=== PATIENT | female | born 1980 | race Caucasian/White ===

== ENCOUNTER 2018-05-29 17:55 | Inpatient (IN) | payer BC ==
--- OUTSIDE RECORDS SUMMARY | 2018-05-29 18:52 | XMS REPORT | Continuity of Care Document ---
:1980 Author Organization [facility] Address [address] [place] [address] Phone Unavailable Care Team Providers Name Role Phone SHIRLEY GUEVARA MD Primary Care Physician Insurance Providers Guarantor Maura Shetty Address [address] [place] [address] Email [email or web address] Policy Number [id number] Subscriber's Name Gume Shetty Relationship Spouse Group Number [id number] Group Name [employer] Advance Directives Directive Response Recorded Date/Time Advance Directives No 03/21/14 10:10am Advance Directive on File No 04/23/18 4:31pm Directive to Physicians/Living Will No 03/21/14 10:10am Health Care Proxy No 03/21/14 10:10am Name of Surrogate/Decision Maker NA 04/23/18 4:14pm Organ Donor No 03/21/14 10:10am Medical Power of Garment Worker No 03/21/14 10:10am Patient/Family Given Education Material R/T Directives? No 04/23/18 4:31pm Chief Complaint and Reason for Visit Chief Complaint ULCERATIVE COLITIS FLARE Reason for Visit Ulcerative colitis Problems Medical Problem Onset Date Status Bronchitis Unknown Acute Ulcerative colitis Unknown Chronic Surgical Problem Onset Date Status Status post 03/21/2014 Acute Medications Current Home Medications Medication Dose Units Route Directions Days Qty Instructions Start Date Citalopram 1 Tab ORAL Daily 30 Tablet Hydrobromide * 20 Mg Tab Mesalamine 2.4 Gm ORAL Daily for 30 Days 90 Tablet 04/26/18 (Asacol Hd) 800 Unknown Mg Tab Multiple Vitamin 1 Tab ORAL Once Daily * (Multivitamin *) Tab Prednisone 10 Mg ORAL Daily for 10 Days 20 Tablet 04/26/18 (Prednisone 5 Unknown Mg) 5 Mg Alberto Prednisone 1 Tab ORAL Daily for 10 Days 10 Tablet 04/26/18 (Prednisone 20 Unknown Mg*) 20 Mg Tab Tramadol Hcl 1 Tab ORAL Three Times 10 Days 90 Tablet 04/26/18 (Tramadol Hcl 50 Daily As Mg (Ultram) *) Needed for 50 Mg Tab Unknown Past Home Medications Medication Directions Ordered Status Azathioprine (Azathioprine *) 50 Once Daily Discontinued Mg Tab, 50 Mg Oral Budesonide (Uceris) 9 Mg Tab, 9 Once Daily Discontinued Mg Oral Hydrocodone-Acetaminophen 5/325MG Every 4-6H As Needed/ Pain as 03/24/14 Discontinued * ([place] 5/325MG *) 1 Tab Tab, needed for Pain 1-2 Tabs Oral Ibuprofen 800 Mg Tab, 800 Mg Oral Every 6 Hours As Needed 03/24/14 Discontinued Infliximab (Remicade Sdv 100 Mg As Directed Discontinued (10 Mg/Ml) *) 100 Mg Inj, 0 Intravenous Multivit-Min W/Fe-Fa * Once Daily Discontinued ( *) Tab, 1 Tab Oral Social History Smoking Status Start Date Stop Date Former smoker Hospital Discharge Instructions No hospital discharge instruction information available. Plan of Care Discharge Date 04/26/18 3:41pm Disposition PATIENT DISCHARGE HOME OR SELF Instructions/Education Provided Mesalamine delayed-release Tramadol tablets Ulcerative Colitis, Adult Prednisone tablets Forms Provided Portal Welcome Letter Prescriptions See Medication Section Functional Status No functional status information available. Allergies, Adverse Reactions, Alerts No known allergies. Immunizations No immunization information available. Vital Signs Acute Vital Signs Vital Response Date/Time Blood Pressure 111/53 mm Hg 04/26/2018 11:23am Pulse Pulse Rate (adult) 57 beats per minute (60 - 100) 04/26/2018 11:23am Respiratory Rate 18 breaths per minute (10 - 24) 04/26/2018 11:23am Temperature Source Oral 04/26/2018 11:23am Height 5 ft 5 in 04/23/2018 10:05pm Weight 250.06 lb 04/26/2018 4:37am Body Mass Index 41.6 kg/m^2 04/26/2018 4:37am Results Laboratory Results Test Name Result Units Flags Reference Collection Result Comments Date/Time Date/Time White Blood 10.6 K/ul 4.0-11.5 04/25/2018 04/25/2018 Count 4:32am 5:22am Red Blood Count 4.87 M/ul 3.80-5.20 04/25/2018 04/25/2018 4:32am 5:22am Hemoglobin 14.9 g/dl 10.5-15.7 04/25/2018 04/25/2018 4:32am 5:22am Hematocrit 43.3 % 34.0-50.0 04/25/2018 04/25/2018 4:32am 5:22am Mean Corpuscular 88.9 fl 78-98 04/25/2018 04/25/2018 Volume 4:32am 5:22am Mean Corpuscular 30.5 pg 26.2-33.4 04/25/2018 04/25/2018 Hemoglobin 4:32am 5:22am Mean Corpuscular 34.3 g/dl 31.5-36.2 04/25/2018 04/25/2018 Hemoglobin 4:32am 5:22am Concent Red Cell 12.2 % 11.5-15.5 04/25/2018 04/25/2018 Distribution 4:32am 5:22am Width Platelet Count 241 K/ul 137-338 04/25/2018 04/25/2018 4:32am 5:22am Mean Platelet 6.6 fl L 8.4-11.8 04/25/2018 04/25/2018 Volume 4:32am 5:22am Neutrophils (%) 89.4 % H 44.4-80.1 04/25/2018 04/25/2018 (Auto) 4:32am 5:22am Lymphocytes (%) 6.6 % L 10.0-50.0 04/25/2018 04/25/2018 (Auto) 4:32am 5:22am Monocytes (%) 3.7 % 3.6-12.04 04/25/2018 04/25/2018 (Auto) 4:32am 5:22am Eosinophils (%) 0.0 % 0.0-5.41 04/25/2018 04/25/2018 (Auto) 4:32am 5:22am Basophils (%) 0.3 % 0.0-0.79 04/25/2018 04/25/2018 (Auto) 4:32am 5:22am Erythrocyte 12 mm/hr 0.00-20 04/23/2018 04/23/2018 Sedimentation 5:33pm 5:58pm Rate Prothrombin Time 10.6 SECONDS 10.3-12.3 04/24/2018 04/24/2018 4:30am 5:06am THERAPEUTIC LEVEL: 1.5 to 1.9 times normal range of PT Prothromb Time 0.96 04/24/2018 04/24/2018 International 4:30am 5:06am Recommended therapeutic range for patients receiving Ratio warfarin (coumadin) therapy: INR is 2.0 to 3.0 Recommended range for patients with mechanical prosthetic heart valves: INR is 2.5 to 3.5 Activated 26.0 SECONDS 22.5-37.0 04/24/2018 04/24/2018 Partial 4:30am 5:06am Thromboplast Time Urine Color YELLOW 04/23/2018 04/23/2018 8:23pm 8:52pm Urine Appearance CLEAR CLEAR 04/23/2018 04/23/2018 8:23pm 8:52pm Urine Glucose NEGATIVE NEGATIVE 04/23/2018 04/23/2018 8:23pm 8:52pm Urine Bilirubin NEGATIVE NEGATIVE 04/23/2018 04/23/2018 8:23pm 8:52pm Urine Ketones NEGATIVE NEGATIVE 04/23/2018 04/23/2018 8:23pm 8:52pm Urine Specific 1.017 1.003-1.03 04/23/2018 04/23/2018 [place] 0 8:23pm 8:52pm Urine Blood NEGATIVE NEGATIVE 04/23/2018 04/23/2018 8:23pm 8:52pm Urine pH 6.000 5-9 04/23/2018 04/23/2018 8:23pm 8:52pm Urine Protein NEGATIVE NEGATIVE 04/23/2018 04/23/2018 8:23pm 8:52pm Urine NORMAL mg/dL 0.2-1.0 04/23/2018 04/23/2018 Urobilinogen 8:23pm 8:52pm Urine Nitrate NEGATIVE NEGATIVE 04/23/2018 04/23/2018 8:23pm 8:52pm Urine Leukocyte 1+ H NEGATIVE 04/23/2018 04/23/2018 Esterase 8:23pm 8:52pm Urine RBC <1 /hpf 0-5 04/23/2018 04/23/2018 8:23pm 8:51pm Urine WBC 1-5 /hpf 0-5 04/23/2018 04/23/2018 8:23pm 8:51pm Urine Epithelial 1-5 /hpf 0-5 04/23/2018 04/23/2018 Cells 8:23pm 8:51pm Urine Bacteria TRACE /hpf None 04/23/2018 04/23/2018 Detect 8:23pm 8:51pm Urine Casts 2-5 /lpf None 04/23/2018 04/23/2018 Detect 8:23pm 8:51pm Urine Culture YES 04/23/2018 04/23/2018 Reflexed 8:23pm 8:51pm POC Capillary 76 mg/dL 70 - 110 04/23/2018 04/24/2018 Blood Glucose 8:26pm 12:54am (Chem) Lactic Acid 1.05 mmoL/L 0.5-2.2 04/23/2018 04/23/2018 Level 5:33pm 6:22pm Procalcitonin 0.0 ng/mL 0.0-0.8 04/23/2018 04/23/2018 The change of PCT concentration over time provides 5:33pm 6:23pm prognostic information about the risk of mortality within 28 days for patients diagnosed with severe sepsis or septic shock coming from the emergency department, ICU, other medical wards, or directly from outside the hospital. Data supports the use of PCT determinations from the day severe sepsis or septic shock is first diagnosed (Day 0) or the day thereafter (Day 1) and the fourth day after diagnosis (Day 4) for the classification of patients into higher and lower risk for mortality within 28 days according to the workflow below: PCT Day 0(or Day 1) - PCT Day 4 delta PCT= X 100% PCT Day 0 (or Day 1) A decrease of PCT levels below or equal to 80% defines a positive delta PCT test result representing a higher risk for 28-day all-cause mortality of patients diagnosed with severe sepsis or septic shock. A decreased of PCT levels of more than 80% defines a negative delta PCT result representing a lower risk for 28-day all-cause mortality of patients diagnosed with severe sepsis or septic shock. To determine delta PCT results from the absolute PCT concentrations of a patient obtained on the day severe sepsis or septic shock was first diagnosed (or 24 hours later) and on Day 4, go to [email or web address]. Random Glucose 144 mg/dL H 74-106 04/25/2018 04/25/2018 4:32am 6:07am Blood Urea 6 mg/dL 6-20 04/25/2018 04/25/2018 Nitrogen 4:32am 6:07am Serum Osmolality 281 280-300 04/25/2018 04/25/2018 4:32am 6:07am Creatinine 0.6 mg/dL 0.50-0.90 04/25/2018 04/25/2018 4:32am 6:07am Glomerular > 60.00 04/25/2018 04/25/2018 GFR RESULTS ARE REPORTED IN mL/min/1.73m2. Filtration Rate 4:32am 6:07am Calc Normal GFR: >60mL/min Moderately decreased GFR: 30-59 mL/min Severely decreased GFR: 15-29 mL/min Kidney Failure (or Dialysis): <15 mL/min The calculated eGFR is not valid for patients younger than 18 years or older than 75 years. BUN/Creatinine 10.0 L 12-04/25/2018 04/25/2018 Ratio 4:32am 6:07am Sodium Level 141 mmol/L 135-145 04/25/2018 04/25/2018 4:32am 6:07am Potassium Level 4.2 mmol/L 3.5-5.2 04/25/2018 04/25/2018 4:32am 6:07am Chloride Level 105 mmol/L 98-108 04/25/2018 04/25/2018 4:32am 6:07am Carbon Dioxide 26 mmol/L 21-32 04/25/2018 04/25/2018 Level 4:32am 6:07am Anion Gap 14.2 mEq/L 12-20 04/25/2018 04/25/2018 4:32am 6:07am Calcium Level 9.2 mg/dL 8.6-10.0 04/25/2018 04/25/2018 4:32am 6:07am Total Protein 6.8 g/dL 6.6-8.7 04/23/2018 04/23/2018 5:33pm 6:22pm Albumin 4.0 g/dL 3.5-5.2 04/23/2018 04/23/2018 5:33pm 6:22pm Globulin 2.8 gm/dL 04/23/2018 04/23/2018 5:33pm 6:22pm Albumin/Globulin 1.4 >1.0 04/23/2018 04/23/2018 Ratio 5:33pm 6:22pm Total Bilirubin 0.4 mg/dL 0.0-1.2 04/23/2018 04/23/2018 5:33pm 6:22pm Aspartate Amino 10 U/L L 15-32 04/23/2018 04/23/2018 Transf 5:33pm 6:22pm (AST/SGOT) Alanine 11 U/L 0-33 04/23/2018 04/23/2018 Aminotransferase 5:33pm 6:22pm (ALT/SGPT) Lipase 19 U/L 13-60 04/23/2018 04/23/2018 5:33pm 6:22pm C-Reactive 2.6 mg/L 0.0-5.0 04/23/2018 04/23/2018 Protein High 5:33pm 6:42pm Sensitivity Total Alkaline 53 U/L 35-105 04/23/2018 04/23/2018 Phosphatase 5:33pm 6:22pm Microbiology Results Procedure Source Organism/Result Collection Result Result Status Date/Time Date/Time Blood Culture Blood SPECIMEN HAS BEEN 04/23/2018 04/23/2018 Preliminary RECEIVED IN LAB AND 5:40pm 5:47pm IS IN PROGRESS. Procedures Procedure Status Date Provider(s) Computed tomography of abdomen and pelvis with Completed 04/23/18 TAMMIE DEVLIN MD contrast Encounters Encounter Location Arrival/Admit Date Discharge/Depart Date Attending Provider Discharged Mobile 04/23/18 4:14pm 04/26/18 3:41pm QUITA Inpatient (obs) [facility] Recent Diagnosis Ulcerative colitis
--- OUTSIDE RECORDS SUMMARY | 2018-05-29 18:52 | XMS REPORT | Clinical Summary ---
:1980 Author Organization [facility] Address [address] [place] [id number] Care Team Providers Name Role Phone Hiram Gómez MD Primary Care Provider Allergies No Known Allergies Medications Medication Sig Dispensed Refills Start Date End Date Status inFLIXimab (REMICADE) Infuse into a 0 Active 100 mg injection venous catheter. Once per 7 weeks azaTHIOprine (IMURAN) Take 50 mg by 0 Active 50 mg tablet mouth daily. topiramate (TOPAMAX) 25 1 tab PO QAM for 120 tablet 6 10/18/2016 Active MG tablet 1 week, then 1 tab PO BID for 1 week, then 2 tabs PO QAM and 1 tab PO QPM for 1 week, then 2 tabs PO BID Active Problems Problem Noted Date Empty sella syndrome 10/18/2016 Intractable migraine with aura without status migrainosus 10/18/2016 Chronic daily headache 10/18/2016 Paresthesia 10/18/2016 Family History Medical History Relation Name Comments Migraines Father Heart attack Maternal Grandfather Uterine cancer Maternal Grandmother Heart attack Maternal Uncle Migraines Mother Relation Name Status Comments Father Maternal Grandfather Maternal Grandmother Maternal Uncle Mother Social History Tobacco Use Types Packs/Day Years Used Date Former Smoker Quit: 2001 Alcohol Use Drinks/Week oz/Week Comments Yes rare Sex Assigned at Date Recorded Not on file Job Start Date Occupation Industry Not on file Not on file Not on file Travel History Travel Start Travel End No recent travel history available. Last Filed Vital Signs Not on file Plan of Treatment Health Maintenance Due Date Last Done Comments CERVICAL CANCER SCREENING 2000 INFLUENZA VACCINE 02/14/2018 Results Not on fileafter 05/28/2017 Insurance Payer Benefit Plan / Group Subscriber ID Type Phone Address BCBS BCBS CHOICE PPO/FEDERAL EMPL PPO xxxxxxxxxxxx PPO Advance Directives Patient has advance care planning documents on file. For more information, please contact:Trey Butler[address] [place] [address]
--- NOTE | 2018-05-29 20:37 | P.HP ---
Certification for Inpatient Patient admitted to: Inpatient With expected LOS: >2 Midnights Practitioner: I am a practitioner with admitting privileges, knowledge of patient current condition, hospital course, and medical plan of care. Services: Services provided to patient in accordance with Admission requirements found in Title 42 Section 412.3 of the Code of Federal Regulations Patient History Date of Service: 05/29/18 Reason for admission: Ulcerative colitis flare-up History of Present Illness: Ms Wright 87-year-old woman with history of ulcerative colitis who was admitted in April of this year due to a flare up. Time she was complaining of abdominal pain, nausea, vomiting and rectal bleeding. She was initially treated with IV steroids, then it was switched to mesalamine. The patient noticed that when she was on steroids, her bleeding was minimal but when she finished it, she start bleeding more again. She was sent by her PCP for direct admission due to worsening symptoms. At arrival the patient was in no distress. Home medications list reviewed: Yes - Past Medical/Surgical History -: Ulcerative colitis Past Surgical History: Reviewed- Non-Contributory - Family History Family History: Reviewed- Non-Contributory - Social History Smoking Status: Former smoker Alcohol use: No CD- Drugs: No Place of Residence: Home Review of Systems 10-point ROS is otherwise unremarkable Physical Examination - Physical Exam General: Alert, In no apparent distress HEENT: Atraumatic, PERRLA, Mucous membr. moist/pink, EOMI, Sclerae nonicteric Neck: Supple, 2+ carotid pulse no bruit, No LAD, Without JVD or thyroid abnormality Respiratory: Clear to auscultation bilaterally, Normal air movement Cardiovascular: Regular rate/rhythm, Normal S1 S2 Gastrointestinal: Normal bowel sounds, Tenderness (Tender to palpation in lower abdomen) Musculoskeletal: No tenderness Integumentary: No rashes Neurological: Normal speech, Normal strength at 5/5 x4 extr, Normal tone, Normal affect Lymphatics: No axilla or inguinal lymphadenopathy Assessment and Plan - Problems (Diagnosis) (1) Ulcerative colitis Current Visit: Yes Status: Acute Qualifiers: Ulcerative colitis location: unspecified ulcerative colitis location Digestive disease complication type: with rectal bleeding Qualified Code(s): K51.911 - Ulcerative colitis, unspecified with rectal bleeding (2) Hematochezia Current Visit: Yes Status: Acute (3) Nausea & vomiting Current Visit: Yes Status: Acute Qualifiers: Vomiting type: unspecified Vomiting Intractability: non-intractable Qualified Code(s): R11.2 - Nausea with vomiting, unspecified - Plan The patient will be admitted to the hospital due to ulcerative colitis flare- up. Will order laboratory work, CT abdomen and pelvis, start empiric antibiotic treatment with Cipro and Flagyl. Also order IV steroids and pain medication. Keep her NPO. Consult GI specialist for evaluation recommendation. - Advance Directives Does patient have a Living Will: No Does patient have a Durable POA for Healthcare: No - Code Status/Comfort Care Code Status Assessed: Yes Code Status: Full Code
[2018-05-29 20:52] LABS: Absolute Lymphocytes (CBC) 1.3 K/uL (0.7-4.9); Absolute Monocytes 0.7 K/uL (0.1-1.3); Absolute Neutrophil 5.9 K/uL (1.8-8.0); Basophils % 0.6 % (0-1.3); Eosinophils % 5.2 % (0-4.4); Hematocrit 38.2 % (36.0-45.0); Lymphocytes % 15.1 % (15.3-44.8); MCH 30.4 pg (27.0-35.0); MCV 88.3 fL (80-100); MPV 7.1 fL (7.6-11.3); Monocytes % 8.9 % (3.3-12.3); RBC Red Blood Cell Count 4.33 M/uL (3.86-4.86)
[2018-05-29 21:11] LABS: ALT/SGPT 23 U/L (12-78); AST/SGOT 15 U/L (15-37); Albumin 3.4 g/dL (3.4-5.0); Alkaline Phosphatase 61 U/L (45-117); BUN Blood Urea Nitrogen 12 mg/dL (7-18); Bicarbonate 25 mmol/L (21-32); Bilirubin Total 0.5 mg/dL (0.2-1.0); Glucose Level 86 mg/dL (74-106); Potassium 3.6 mmol/L (3.5-5.1); Protein, Total 6.7 g/dL (6.4-8.2); Sodium Level 139 mmol/L (136-145)
[2018-05-29] MEDS: ONDANSETRON 4 MG/2 ML VIAL IV PRN (22:14)
[2018-05-29] MEDS: MORPHINE 2 MG/ML SYR IV PRN (22:15)
[2018-05-29] MEDS: CIPROFLOXACIN 400mg IV 400 MG/200 ML BAG IV SCH (22:15)
[2018-05-29] MEDS: NA CHLORIDE 0.9% 1,000 ML IV SCH (22:15)
[2018-05-30] MEDS: METHYLPREDNISOLONE 40 MG INJ IV SCH ×3 (02:04→16:41)
[2018-05-30] MEDS: METRONIDAZOLE 500mg IVPB 500 MG/100 ML BAG IV SCH ×3 (02:10→16:40)
[2018-05-30] MEDS: MORPHINE 2 MG/ML SYR IV PRN ×4 (02:24→21:46)
[2018-05-30] MEDS ORDERED: ACETAMINOPHEN 500 MG TAB PO ONE (04:20)
[2018-05-30 06:09] LABS: BUN Blood Urea Nitrogen 9 mg/dL (7-18); Bicarbonate 25 mmol/L (21-32); Glucose Level 105 mg/dL (74-106); Sodium Level 140 mmol/L (136-145)
[2018-05-30 06:11] LABS: Absolute Lymphocytes (CBC) 0.7 K/uL (0.7-4.9); Absolute Monocytes 0.2 K/uL (0.1-1.3); Absolute Neutrophil 4.4 K/uL (1.8-8.0); Basophils % 0.8 % (0-1.3); Eosinophils % 3.7 % (0-4.4); Hematocrit 38.4 % (36.0-45.0); Lymphocytes % 12.6 % (15.3-44.8); MCH 30.3 pg (27.0-35.0); MCV 86.4 fL (80-100); MPV 7.6 fL (7.6-11.3); Monocytes % 3.8 % (3.3-12.3); RBC Red Blood Cell Count 4.45 M/uL (3.86-4.86)
[2018-05-30] MEDS: CIPROFLOXACIN 400mg IV 400 MG/200 ML BAG IV SCH ×2 (08:53→21:46)
[2018-05-30] MEDS: NA CHLORIDE 0.9% 1,000 ML IV SCH ×3 (08:53→22:45)
--- NOTE | 2018-05-30 09:05 | RAD REPORT ---
EXAM DESCRIPTION: CTAbdomen Pelvis W Contrast - 05/30/2018 8:31 am CLINICAL HISTORY: Abdominal pain. ulcerative colitis flare up COMPARISON: No comparisons TECHNIQUE: Biphasic CT imaging of the abdomen and pelvis was performed with 100 ml non-ionic IV cont rast. All CT scans are performed using dose optimization technique as appropriate and may include automated exposure control or mA/KV adjustment according to patient size. FINDINGS: The lung bases are clear. Mild diffuse fatty liver is present. Small low-density lesion is present in the left lobe inferiorly, incompletely assessed but likely a cyst. No aggressive liver lesion or biliary dilatation seen. The spleen, pancreas, adrenal glands and kidneys are within normal limits. No bowel obstruction, free air, free fluid or abscess. Rectosigmoid wall thickening is present up to 10 mm with mild surrounding induration the fat likely indicating colitis. No pneumatosis coli. The ap pendix is not identified as a discrete structure, however, no secondary findings of appendicitis are identified. No evidence of significant lymphadenopathy. No suspicious bony findings. IMPRESSION: Mild to moderate rectosigmoid colitis is present. No free air, free fluid or abscess is seen.
[2018-05-30] MEDS: CITALOPRAM 10 MG TABLET PO SCH (09:42)
[2018-05-30] MEDS: ONDANSETRON 4 MG/2 ML VIAL IV PRN ×2 (09:43→21:51)
--- NOTE | 2018-05-30 17:30 | PN ---
Date of Progress Note: 05/30/2018 Subjective: The patient seen and examined, chart reviewed and case discussed with RN and Dr. Cid. The patient states she is still having some bright red blood per rectum overnight. Review of Systems: Negative except as above. Medications: List reviewed. Physical Examination: Vital Signs: Temperature 98.6, heart rate 78, blood pressure 114/74, respirations 16, O2 98% on room air. General: Awake, alert, oriented x3, in some mild distress. Morbidly obese female, ill-appearing. CV: S1 and S2. No murmurs. Regular rate and rhythm. Peripheral pulses present. Respiratory: Moving air well bilaterally. No wheezing. Gastrointestinal: Abdomen is soft. No tenderness to palpation. No rebound or guarding. No rigidity. Bowel sounds positive. Extremities: No clubbing, cyanosis, or edema. Neurologic: Nonfocal. Laboratory Data: Sodium 140, potassium 4, chloride 107, CO2 25, BUN 9, creatinine 0.6, glucose 105, calcium 8.7, magnesium 2. WBC 5.6, H and H 13.5 and 38.4, platelets 233, neutrophils 79.1%. CT scan of the abdomen and pelvis shows mild to moderate rectosigmoid colitis present, no free air, free fluid or abscess seen. Assessment And Plan: A 37-year-old female with: 1. Ulcerative colitis in the rectosigmoid colon with rectal bleeding. We will continue with IV fluids and IV antibiotics and IV steroids. Appreciate Dr. Cid's input. The patient is still having significant amount of bleeding. We will monitor hemoglobin. Hemoglobin levels currently stable. 2. Acute gastrointestinal bleed secondary to above. Monitor H and H, transfuse as needed. 3. Intractable nausea and vomiting, resolved. We will advance diet to clear liquids. 4. Morbid obesity Plan: Continue current treatment, GI and DVT prophylaxis with PPI and SCDs. No chemical anticoagulation due to GI bleed. The patient will likely need to go back on her Remicade. Discharge in the next 24-48 hours depending on clinical stability. Currently still having GI bleed. /MODL Voice ID: [id number] Report ID: [id number] [facility]
[2018-05-31] MEDS: METRONIDAZOLE 500mg IVPB 500 MG/100 ML BAG IV SCH ×3 (00:57→16:31)
[2018-05-31] MEDS: METHYLPREDNISOLONE 40 MG INJ IV SCH ×3 (00:57→16:31)
[2018-05-31 06:43] LABS: Absolute Lymphocytes (CBC) 0.6 K/uL (0.7-4.9); Absolute Monocytes 0.3 K/uL (0.1-1.3); Absolute Neutrophil 4.9 K/uL (1.8-8.0); Basophils % 0.2 % (0-1.3); Hematocrit 36.5 % (36.0-45.0); Lymphocytes % 10.2 % (15.3-44.8); MCH 30.5 pg (27.0-35.0); MCV 87.7 fL (80-100); Monocytes % 5.9 % (3.3-12.3); RBC Red Blood Cell Count 4.16 M/uL (3.86-4.86)
[2018-05-31 06:49] LABS: ALT/SGPT 19 U/L (12-78); AST/SGOT 11 U/L (15-37); Alkaline Phosphatase 57 U/L (45-117); BUN Blood Urea Nitrogen 6 mg/dL (7-18); Bicarbonate 25 mmol/L (21-32); Bilirubin Total 0.3 mg/dL (0.2-1.0); Glucose Level 133 mg/dL (74-106); Potassium 3.6 mmol/L (3.5-5.1); Protein, Total 6.3 g/dL (6.4-8.2); Sodium Level 143 mmol/L (136-145)
[2018-05-31] MEDS ORDERED: KCL 20 MEQ/100 mL IVPB 20 MEQ/100 ML BAG IV SCH (08:00)
[2018-05-31] MEDS ORDERED: POTASSIUM 25 MEQ EFFERV TAB PO ONE (08:01)
[2018-05-31] MEDS: CITALOPRAM 10 MG TABLET PO SCH (08:16)
[2018-05-31] MEDS: CIPROFLOXACIN 400mg IV 400 MG/200 ML BAG IV SCH ×2 (08:16→20:23)
[2018-05-31] MEDS ORDERED: FLUCONAZOLE 100 MG TAB PO ONE (11:16)
[2018-05-31] MEDS: NA CHLORIDE 0.9% 1,000 ML IV SCH (12:27)
[2018-05-31] MEDS: ONDANSETRON 4 MG/2 ML VIAL IV PRN ×2 (13:20→21:23)
[2018-05-31] MEDS: MORPHINE 2 MG/ML SYR IV PRN ×2 (13:30→21:23)
--- NOTE | 2018-05-31 16:29 | PN ---
Date of Progress Note: 05/31/2018 Subjective: The patient seen and examined, chart reviewed, and case discussed with RN and Dr. Cid. The patient continues to have multiple bowel movements with bright red blood per rectum. The patient is on isolation to rule out C diff. The patient is still having some abdominal pain, but really tolerating her liquid diet and she continues to have loose stools. Review of Systems: Negative except as above. Medications: List reviewed. Physical Examination: Vital Signs: Temperature 97.4, blood pressure 127/80, respirations 17, O2 96% on room air. General: Awake, alert, oriented x3, some moderate distress due to pain, ill- appearing female, morbidly obese. CV: S1 and S2. Regular rate and rhythm. No murmurs. Respiratory: Moving air well bilaterally. No wheezing. Gastrointestinal: Abdomen is soft. Tenderness to palpation. No distention. Hypoactive bowel sounds. No rebound or guarding. Extremities: No clubbing, cyanosis, edema. Neuro: Nonfocal. Laboratory Data: Sodium 143, potassium 3.6, chloride 110, CO2 25, BUN 6, creatinine 0.6, glucose 133, calcium 8.4. WBC 5.8, H and H 12.7 and 36.5, platelets 260, neutrophils 83%. C diff assay is pending. Assessment And Plan: A 37-year-old female with: 1. Acute ulcerative colitis exacerbation, rectosigmoid colon. Continue with IV antibiotics and IV steroids. The patient is still not tolerating liquid diet , we will continue IV fluids. I spoke with Dr. Cid, if the patient's hepatitis panel in [place] is negative, we will try to see if Remicade is available in the hospital. The patient continues to have significant amount of bleeding. Hemoglobin trending downward. We will continue to monitor. 2. Acute gastrointestinal bleed secondary to above. We will monitor H and H, transfuse as needed. 3. Intractable nausea and vomiting, resolved. 4. Diarrhea. We will rule out Clostridium difficile. 5. Morbid obesity, BMI 40.4. 6. Gastrointestinal and deep venous thrombosis prophylaxis, PPI and SCDs. No chemical anticoagulation due to gastrointestinal bleed. Plan: Follow up on hepatitis panel. Possible discharge Remicade if available. Continue current treatment. The patient did complain of some yeast infection , we will give 1 dose of Diflucan. SA/MODL Voice ID: [id number] Report ID: [id number] [facility]TD[facility]
[2018-06-01] MEDS: NA CHLORIDE 0.9% 1,000 ML IV SCH ×2 (01:00→09:38)
[2018-06-01] MEDS: METHYLPREDNISOLONE 40 MG INJ IV SCH ×2 (01:00→09:38)
[2018-06-01] MEDS: METRONIDAZOLE 500mg IVPB 500 MG/100 ML BAG IV SCH ×2 (01:00→09:37)
[2018-06-01 05:11] LABS: Absolute Lymphocytes (CBC) 0.7 K/uL (0.7-4.9); Absolute Monocytes 0.4 K/uL (0.1-1.3); Absolute Neutrophil 5.1 K/uL (1.8-8.0); Basophils % 0.2 % (0-1.3); Hematocrit 35.7 % (36.0-45.0); MCH 30.5 pg (27.0-35.0); MCV 88.4 fL (80-100); MPV 6.9 fL (7.6-11.3); Monocytes % 6.7 % (3.3-12.3); RBC Red Blood Cell Count 4.05 M/uL (3.86-4.86)
[2018-06-01 05:19] LABS: Bicarbonate 25 mmol/L (21-32); Glucose Level 128 mg/dL (74-106); Potassium 3.8 mmol/L (3.5-5.1); Sodium Level 143 mmol/L (136-145)
[2018-06-01 05:20] LABS: BUN Blood Urea Nitrogen 8 mg/dL (7-18)
[2018-06-01] MEDS ORDERED: POTASSIUM 25 MEQ EFFERV TAB PO ONE (06:00)
[2018-06-01] MEDS: CITALOPRAM 10 MG TABLET PO SCH (09:37)
[2018-06-01] MEDS: CIPROFLOXACIN 400mg IV 400 MG/200 ML BAG IV SCH (09:38)
--- NOTE | 2018-06-02 15:36 | DS ---
Date of Discharge: 06/01/2018 Registered Travel Nurse: Dr. Cid, GI. Admitting Diagnoses: 1.Acute exacerbation of ulcerative colitis with rectal bleeding. 2.Hematochezia. 3.Intractable nausea and vomiting. Discharge Diagnoses: 1.Acute rectosigmoid ulcerative colitis exacerbation. 2.Acute gastrointestinal bleed secondary to above. 3.Intractable nausea and vomiting, resolved. 4.Diarrhea, Clostridium difficile rule out. 5.Morbid obesity, BMI 40. Hospital Course: The patient is a 37-year-old female, who was a direct admit from [place] by her [facility] physician for ulcerative colitis flare up. The patient sees Dr. Cid as outpatient fo r ulcer colitis, who has recently been on mesalamine. She had tried Remicade in the past, however wa s off the biologics at this point. The patient has been having multiple episodes of bleeding requiri ng recurrent hospitalizations. The patient was again treated with IV antibiotics, IV fluids, and IV saline. She did have some improvement in her symptoms. Her pain resolved. She was able to tolerate her diet. Her nausea and vomiting improved as well. However, she continued to have some blood in h er stool. Her blood pressure however remained stable. She was not tachycardic. Her hemoglobin leve ls remained stable, did not require any transfusions. She did have some loose stools and C diff was checked which was negative. The patient already has had workup including PPD and hepatitis panel, wh ich were negative and therefore is set up for Remicade treatment as an outpatient. The patient was t hen cleared for discharge from GI standpoint and discharged home in a stable condition. Activity: As tolerated. Medications: As per medication reconciliation list. Diet: [place] diet. Followup: Follow up with primary care physician in 2-3 days. Follow up with [facility], Dr. Cid in 1 [place]. Return to ER for worsening condition. Physical Examination: General: Awake, alert, oriented x3. No acute distress. Morbidly obese female. CV: S1 and S2. No murmurs. Respiratory: Moving air well bilaterally. Abdomen: Soft, nontender, nondistended. Positive bowel sounds. Extremities: No clubbing, cyanosis, or edema. Neurologic: Nonfocal. Total time spent discharging the patient was 36 minutes. SA/MODL Voice ID: [id number] Report ID: [id number]
== END 2018-06-01 12:56 | disposition home or self-care (01) | DRG 386 ==
LOC: 2ND 17:55
PROVIDERS: ADMIT Family Medicine; ATTEND Family Medicine
DX: K51.311 Ulcerative (chronic) rectosigmoiditis with rectal bleeding (principal); Z68.41 Body mass index [BMI] 40.0-44.9, adult; R11.2 Nausea with vomiting, unspecified; E66.01 Morbid (severe) obesity due to excess calories; R19.7 Diarrhea, unspecified; Z87.891 Personal history of nicotine dependence
CPT/HCPCS: 36415; 74177; 80048; 80053; 83735; 85025; 85652; 86140; 87493; J0744; J2270; J2405; J2920; J7030; Q9967

== ENCOUNTER 2018-07-23 14:10 | Inpatient (IN) | payer BC ==
--- OUTSIDE RECORDS SUMMARY | 2018-07-23 14:12 | XMS REPORT | Clinical Summary ---
:1980 Author Organization [facility] Address [address] [place] [address] Care Team Providers Name Role Phone Hiram [...] INFLUENZA VACCINE 02/14/2018 Results Not on fileafter 07/22/2017 Insurance Payer Benefit Plan / Group Subscriber ID Type Phone Address BCBS BCBS CHOICE PPO/FEDERAL EMPL PPO xxxxxxxxxxxx PPO Advance Directives Patient has advance care planning documents on file. For more information, please contact:Trey Butler[address] [place] [address]
--- OUTSIDE RECORDS SUMMARY | 2018-07-23 14:13 | XMS REPORT ---
:1980 [facility] Address [address] [place] [address] Care Team Providers Name Role Phone Unavailable Unavailable Unavailable Payers Payer Name Policy Type Policy Number Effective Date Expiration Date Problems This patient has no known problems. Allergies, Adverse Reactions, Alerts Allergy Allergy Status Severity Reaction(s) Onset Inactive Treating Comments Name Type Date Date Clinician No Known DA Active U 2018-05 Allergies -25 00:00:0 0 Medications This patient has no known medications.
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
--- OUTSIDE RECORDS SUMMARY | 2018-07-23 14:13 | XMS REPORT | Encounter Summary ---
:1980 Author Care Team Providers Name Role Phone Hiram Gómez MD Primary Care Provider Unavailable Reason for Visit sore throat; congestion; cough / wheezing Instructions 1. Acute upper respiratory infection upper respiratory infection (cold): care instructions rapid flu (A+B) 2. Left sided ulcerative colitis Discussion Note admit to medical rocha at [facility] today. Plan of Care Reminders Provider Appointments None recorded. Lab Rapid Flu 07/06/2018 In-House Results (A+B) Referral None recorded. Procedures None recorded. Surgeries None recorded. Imaging None recorded. Medications Name Start Date citalopram 20 mg tablet TAKE 1 TABLET BY MOUTH EVERY DAY FOR DEPRESSION fluconazole 150 mg tablet Take 1 tablet as needed by oral route as directed for 1 day. mesalamine 1.2 gram tablet,delayed release mesalamine rectal susp enema with cleansing wipes 4 gram/60 mL kit ondansetron HCl 8 mg tablet Take 1 tablet every 8 hours by oral route for 10 days. pantoprazole 40 mg tablet,delayed release Medications Administered None recorded. Vitals Height Weight BMI Blood Pressure 65 in 246 lbs 3 oz 41 kg/m2 129/91 mm[Hg] Lab Results Date Name Specimen Result Interpretation Description Value Range Status Address 07/06/2018 Hemoglobin + Normal Hemoglobin 11.9 g/dL 10.5-15.7 Final [place] Hematocrit, g/dL [facility] (Lab): 104 [facility] Normal Hematocrit 35.7 % 34.0-50.0 Final [place] % [facility] (Lab): [address] [place] [address] 07/06/2018 Rapid Flu Flu negative In-House (A+B) Results: For Internal Use Only 06/18/2018 Cbc High White Blood 13.9 K/uL 4.0-11.5 Final [place] Count K/uL [facility] (Lab): 104 [facility] Normal Red Blood 4.58 M/uL 3.80-5.20 Final [place] Count M/uL [facility] (Lab): [address] [place] [address] Normal Hemoglobin 14.1 g/dL 10.5-15.7 Final [place] g/dL [facility] (Lab): [address] [place] [address] Normal Hematocrit 41.4 % 34.0-50.0 Final [place] % [facility] (Lab): [address] [place] [address] Normal Mean 90.4 fL 78-98 fL Final [place] Corpuscular [facility] (Lab): [address] [place] [address] Normal Mean 30.7 pg 26.2-33.4 Final [place] Corpuscular pg [facility] Hemoglobin [facility] (Lab): [address] [place] [address] Normal Mean 34.0 g/dL 31.5-36.2 Final [place] Corpuscular g/dL [facility] HGB [facility] (Lab): [address] [place] [address] Normal Red Cell 13.5 % 11.5-15.5 Final [place] Distribution % [facility] Width [facility] (Lab): [address] [place] [address] High Platelet 346 K/uL 137-338 Final [place] Count K/uL [facility] (Lab): [address] [place] [address] Low Mean Platelet 4.7 fL 8.4-11.8 Final [place] Volume fL [facility] (Lab): [address] [place] [address] 06/18/2018 BMP, Serum or High Glucose 117 mg/dL 74-106 Final [place] Plasma mg/dL [facility] (Lab): [address] [place] [address] Normal Blood Urea 16 mg/dL 6-20 mg/dL Final [place] Nitrogen [facility] (Lab): [address] [place] [address] Low Osmolality 278 280-300 Final [place] Calculated, [facility] Serum [facility] (Lab): [address] [place] [address] Normal Creatinine 0.8 mg/dL 0.50-0.90 Final [place] mg/dL [facility] (Lab): [address] [place] [address] Normal Glomerular >60.00 Final [place] Filtration [facility] Rate [facility] (Lab): [address] [place] [address] Normal BUN/creatinin 20.0 12-20 Final [place] e Ratio [facility] (Lab): [address] [place] [address] Normal Sodium Level 138 135-145 Final [place] mmol/L mmol/L [facility] (Lab): [address] [place] [address] Normal Potassium 4.4 3.5-5.2 Final [place] Level mmol/L mmol/L [facility] (Lab): [address] [place] [address] Normal Chloride 100 98-108 Final [place] Level mmol/L mmol/L [facility] (Lab): [address] [place] [address] Normal Co2 27 mmol/L 21-32 Final [place] mmol/L [facility] (Lab): [address] [place] [address] Normal Anion Gap 15.4 12-20 Final [place] mEq/L mEq/L [facility] (Lab): [address] [place] [address] Normal Calcium Level 9.5 mg/dL 8.6-10.0 Final [place] mg/dL [facility] (Lab): [address] [place] [address] 06/09/2018 CBC W/ Auto Normal White Blood 10.7 K/uL 4.0-11.5 Final [place] Diff Count K/uL [facility] (Lab): [address] [place] [address] Normal Red Blood 4.63 M/uL 3.80-5.20 Final [place] Count M/uL [facility] (Lab): [address] [place] [address] Normal Hemoglobin 14.0 g/dL 10.5-15.7 Final [place] g/dL [facility] (Lab): [address] [place] [address] Normal Hematocrit 41.4 % 34.0-50.0 Final [place] % [facility] (Lab): [address] [place] [address] Normal Mean 89.4 fL 78-98 fL Final [place] Corpuscular [facility] Volume [facility] (Lab): [address] [place] [address] Normal Mean 30.3 pg 26.2-33.4 Final [place] Corpuscular pg [facility] Hemoglobin [facility] (Lab): [address] [place] [address] Normal Mean 33.9 g/dL 31.5-36.2 Final [place] Corpuscular g/dL [facility] HGB Conc [facility] (Lab): [address] [place] [address] Normal Red Cell 13.2 % 11.5-15.5 Final [place] Distribution % [facility] Width [facility] (Lab): [address] [place] [address] Normal Platelet 198 K/uL 137-338 Final [place] Count K/uL [facility] (Lab): [address] [place] [address] Low Mean Platelet 6.1 fL 8.4-11.8 Final [place] Volume fL [facility] (Lab): [address] [place] [address] Normal Neutrophils % 68.8 % 44.4-80.1 Corrected [place] % [facility] (Lab): [address] [place] [address] Normal Lymphocyte% 16.3 % 10.0-50.0 Final [place] % [facility] (Lab): [address] [place] [address] Normal Sharp % 10.4 % 3.6-12.04 Final [place] % [facility] (Lab): [address] [place] [address] Normal Eos % 3.8 % 0.0-5.41 % Final [facility] (Lab): [address] [place] [address] Normal Basophil % 0.7 % 0.0-0.79 % Final [facility] (Lab): [address] [place] [address] 06/09/2018 Differential Normal Neutrophils Incomplet [place] Panel, Blood [facility] (Lab): [address] [place] [address] Normal Band Incomplet [facility] (Lab): [address] [place] [address] Normal Lymphocyte Incomplet [facility] (Lab): [address] [place] [address] Normal Atypical Incomplet [place] Lymph [facility] (Lab): [address] [place] [address] Normal Monocyte Incomplet [facility] (Lab): [address] [place] [address] Normal Eosinophil Incomplet [facility] (Lab): [address] [place] [address] Normal Basophil Incomplet [facility] (Lab): [address] [place] [address] Normal Platelet Incomplet [place] Estimate e [facility] (Lab): [address] [place] [address] Normal Platelet Incomplet [place] Morphology e [facility] (Lab): [address] [place] [address] Normal Hypochromasia Incomplet [facility] (Lab): [address] [place] [address] Normal Anisocytosis Incomplet [facility] (Lab): [address] [place] [address] Normal Sickle Cells Incomplet [facility] (Lab): [address] [place] [address] 06/09/2018 CMP, Serum or Normal Glucose 90 mg/dL 74-106 Final [place] Plasma mg/dL [facility] (Lab): [address] [place] [address] Normal Blood Urea 13 mg/dL 6-20 mg/dL Final [place] Nitrogen [facility] (Lab): [address] [place] [address] Low Osmolality 275 280-300 Final [place] Calculated, [facility] Serum [facility] (Lab): [address] [place] [address] Normal Creatinine 0.8 mg/dL 0.50-0.90 Final [place] mg/dL [facility] (Lab): [address] [place] [address] Normal Glomerular >60.00 Final [place] Filtration [facility] (Lab): [address] [place] [address] Normal BUN/creatinin 16.3 12-20 Final [place] e Ratio [facility] (Lab): [address] [place] [address] Normal Sodium Level 138 135-145 Final [place] mmol/L mmol/L [facility] (Lab): [address] [place] [address] Normal Potassium 3.8 3.5-5.2 Final [place] Level mmol/L mmol/L [facility] (Lab): [address] [place] [address] Normal Chloride 98 mmol/L 98-108 Final [place] Level mmol/L [facility] (Lab): [address] [place] [address] Normal Co2 29 mmol/L 21-32 Final [place] mmol/L [facility] (Lab): [address] [place] [address] Normal Anion Gap 14.8 12-20 Final [place] mEq/L mEq/L [facility] (Lab): [address] [place] [address] Normal Calcium Level 9.0 mg/dL 8.6-10.0 Final [place] mg/dL [facility] (Lab): [address] [place] [address] Low Total Protein 6.5 g/dL 6.6-8.7 Final [place] g/dL [facility] (Lab): [address] [place] [address] Normal Albumin 3.8 g/dL 3.5-5.2 Final [place] g/dL [facility] (Lab): [address] [place] [address] Normal Globulin 2.7 gm/dL Final [place] [facility] (Lab): [address] [place] [address] Normal A/g Ratio 1.4 >1.0 Final [place] [facility] (Lab): [address] [place] [address] Normal Bilirubin,tot 0.5 mg/dL 0.0-1.2 Final [place] al mg/dL [facility] (Lab): [address] [place] [address] Low AST/SGOT 10 U/L 15-32 U/L Final [facility] (Lab): [address] [place] [address] Normal ALT/SGPT 10 U/L 0-33 U/L Final [facility] (Lab): [address] [place] [address] Normal Alkaline 56 U/L 35-105 U/L Final [place] Phosphatase, [facility] (Lab): [address] [place] [address] 06/09/2018 Type + Rh Bld 4+ Final [place] Screen, Blood [facility] (Lab): [address] [place] [address] ABO + Rh Pnl A Final [place] Bld positive [facility] (Lab): [address] [place] [address] Allergies Code Code System Name Reaction Severity Status Onset NKDA Problems Name Status Onset Date Source Lesion of Tongue Active 09/15/2016 Malaise and Fatigue Active 09/15/2016 Candidiasis of Vagina Active 05/22/2017 Bacterial Vaginosis Active 05/26/2017 Candidal Vulvovaginitis Active 05/26/2017 Vaginal Pain Active 05/26/2017 Pain in Left Arm Active 02/13/2018 Ulcerative Colitis Active 04/23/2018 Overweight Active Encounter Serous Otitis Media Active Encounter Otitis Media Active Encounter Otalgia Active Encounter Acute Sinusitis Active Encounter Allergic Rhinitis Active Encounter Cyst of Oral Soft Tissue Active Encounter Contact Dermatitis Due to Plants, Except Active Encounter Food Partial Loss of Hair Active Encounter Joint Pain Active Encounter Knee Pain Active Encounter Inflammation of Sacroiliac Joint Active Encounter Lumbago with Sciatica Active Encounter Pain in Left Lower Limb Active Encounter Cough Active Encounter Muscle Strain Active Encounter Procedures Date Name Performed by 03/21/2014 Caesarean Section Information not available 01/18/2004 Caesarean Section Information not available Vaccine List Vaccine Type influenza, recombinant, quadrIvalent,injectable, preservative free 06/18/20180.5 mL Social History Smoking Status Former Smoker Past Encounters 07/06/2018 Acute Upper Respiratory Infection; Left Sided Ulcerative Colitis Earle Roth MD: [address] [place] [address], [address], [place] [address], Ph. 06/26/2018 Left Sided Ulcerative Colitis Earle Roth MD: [address], [address], [place] [address], Ph. 06/18/2018 Ulcerative Colitis; Influenza Vaccination Earle Roth MD: [address], [address], [place] [address], Ph. History of Present Illness Upper Respiratory Symptoms Reported By: Patient Upper Respiratory Symptoms: Location: chest, throat. Quality: colored phlegm, congested, hacking cough, hurts to swallow. Severity: severe. Duration: ; 4 days. Onset/Timing: cannot identify, sudden. Context: no foreign travel, non-smoker, sick contact. Modifying Factors: OTC medication. Associated Symptoms: no vomiting, no diarrhea, no rash, no nausea, yellow-green, thick sputum, yellow sputum, wheezing, difficulty breathing at night, sore throat Review of Systems General Adult ROS Reported By: Patient Cardiovascular: Cardiovascular: no chest pain, no arm pain on exertion, no shortness of breath when walking, no shortness of breath when lying down, no palpitations, no known heart murmur Respiratory: Respiratory: no cough, no wheezing, no shortness of breath, no coughing up blood Gastrointestinal: Gastrointestinal: ; having frequent diarrhea. Bloody mucousy stools intermittently. This has been going on for 4 weeks. Has gotten better with Remicade infusions Integumentary: Skin: no abnormal mole, no jaundice, no rashes Physical Exam General Adult Exam - Female Reported By: Patient Constitutional: General Appearance: healthy-appearing, well-developed. Level of Distress: NAD, acutely ill. Ambulation: limited ambulation Psychiatric: Insight: good judgement. Mental Status: active and alert, normal mood, normal affect. Orientation: to time, to place, to person. Memory: recent memory normal Head: Head: normocephalic Eyes: Pupils: PERRLA. EOM: EOMI. Sclerae: non-icteric ENMT: Ears: TM erythematous. Nose: sinus tenderness, nasal discharge, post nasal drip. Lips, Teeth, and Gums: no mouth or lip ulcers, no bleeding gums, normal dentition. Oropharynx: moist mucous membranes Neck: Neck: supple, FROM. Lymph Nodes: cervical LAD. Thyroid: no enlargement, non-tender, no nodules Lungs: Respiratory effort: no dyspnea. Auscultation: breath sounds normal, good air movement Cardiovascular: Heart Auscultation: RRR, normal S1, normal S2. Neck vessels: no carotid bruits. Pulses including femoral / pedal: normal throughout Abdomen: Bowel Sounds: normal. Inspection and Palpation: soft, non-distended, no tenderness, no guarding Musculoskeletal:: Motor Strength and Tone: normal motor strength, normal tone. Joints, Bones, and Muscles: normal movement of all extremities. Extremities: no cyanosis, no edema, no varicosities Neurologic: Gait and Station: normal gait, normal station. Cranial Nerves: grossly intact. Reflexes: DTRs 2+ bilaterally throughout Skin: Inspection and palpation: no rash, no lesions
--- OUTSIDE RECORDS SUMMARY | 2018-07-23 14:13 | XMS REPORT | Continuity of Care Document ---
:1980 Author Organization [facility] Address [address] [place] [address] Phone Unavailable Care Team Providers Name Role Phone TAMMIE DEVLIN MD Primary Care Physician Insurance Providers Guarantor Maura Shetty Address [address] [place] [address] Email [email or web address] Payer [facility] Policy Number [id number] Subscriber's Name Maura Shetty Relationship Self / Same As Patient Group Number [id number] Group Name [employer] Advance Directives Directive Response Recorded Date/Time Advance Directives No 03/21/14 10:10am Advance Directive on File No 06/09/18 6:04pm Directive to Physicians/Living Will No 03/21/14 10:10am Health Care Proxy No 03/21/14 10:10am Organ Donor No 03/21/14 10:10am Medical Power of Adjunct Philosophy Faculty No 03/21/14 10:10am Patient/Family Given Education Material R/T Y - 06/09/18....PS 06/09/18 7: 36pm Directives? Chief Complaint and Reason for Visit Chief Complaint Abdominal/GI/Nausea/Vomiting Reason for Visit GI bleeding Ulcerative colitis Hypotension Problems Medical Problem Onset Date Status Bronchitis [...] As Needed/ Pain as 03/24/14 Discontinued * (Old Station 5/325MG *) 1 Tab Tab, needed for [...] information available. Plan of Care Discharge Date 06/09/18 11:45pm Forms Provided Portal Welcome Letter Prescriptions See Medication Section Referrals TAMMIE DEVLIN MD Address: [address] [place] [address] [address] [place] [address] Additional Instructions/Education TRANSFERRED TO [facility] Functional Status No functional status information available. Allergies, Adverse Reactions, Alerts No known allergies. Immunizations No immunization information available. Vital Signs Acute Vital Signs Vital Response Date/Time Blood Pressure 114/60 mm Hg 06/10/2018 12:46am Pulse Pulse Rate (adult) 84 beats per minute (60 - 100) 06/10/2018 12:46am Respiratory Rate 20 breaths per minute (10 - 24) 06/10/2018 12:46am Temperature Source Oral 06/10/2018 12:46am Height 5 ft 5 in 06/09/2018 6:04pm Weight 235 lb 06/09/2018 6:04pm Body Mass Index 39.1 kg/m^2 06/09/2018 6:04pm Results Laboratory Results Test Name Result Units [...] 8:52pm Urine Specific 1.017 1.003-1.03 04/23/2018 04/23/2018 [place] 0 8:23pm 8:52pm Urine Blood NEGATIVE NEGATIVE [...] later) and on Day 4, go to [email or web address]. Lipase 19 U/L 13-60 04/23/2018 04/23/2018 5:33pm 6:22pm Erythrocyte 11 mm/hr 0.00-20 05/17/2018 05/17/2018 Sedimentation 11:05am 12:41pm Rate C-Reactive 1.4 mg/L 0.0-5.0 05/17/2018 05/17/2018 Protein High 11:57am 12:49pm Sensitivity Hepatitis B Core Negative Negative 05/23/2018 05/24/2018 Total Antibody 9:23am 7:11am Hepatitis B Core Negative Negative 05/23/2018 05/24/2018 [facility] IgM Antibody 9:23am 7:11am [address] [place], [place] [id number] Charge Master Analyst: Gustavo Cerna MD, Phone: [phone] Hepatitis B Reactive . 05/23/2018 05/24/2018 Non [...] or older than 75 years. BUN/Creatinine 16.3 12-06/09/2018 06/09/2018 Ratio 7:31pm 8:01pm Sodium Level 138 mmol/L 135-145 06/09/2018 06/09/2018 7:31pm 8:01pm Potassium Level 3.8 mmol/L 3.5-5.2 06/09/2018 06/09/2018 7:31pm 8:01pm Chloride Level 98 mmol/L 98-108 06/09/2018 06/09/2018 7:31pm 8:01pm Carbon Dioxide 29 mmol/L 21-32 06/09/2018 06/09/2018 Level 7:31pm 8:01pm Anion Gap 14.8 mEq/L -06/09/2018 06/09/2018 7:31pm 8:01pm Calcium Level 9.0 mg/dL [...] INF Completed 04/23/18 TX/PRO/DX INJ SAME DRUG SMELTER CHARGER Completed 04/23/18 COMPLETE CBC W/AUTO DIFF WBC Completed 04/23/18 ROUTINE VENIPUNCTURE Completed 04/23/18 METABOLIC PANEL TOTAL CA Completed 04/23/18 HYDRATE IV INFUSION ADD-ON Completed 04/23/18 TX/PROPH/DG ADDL SEQ IV INF Completed 04/23/18 TX/PRO/DX INJ SAME DRUG SMELTER CHARGER Completed 04/23/18 HYDRATE IV INFUSION ADD-ON Completed 04/23/18 TX/PRO/DX INJ SAME DRUG SMELTER CHARGER Completed 04/23/18 Completed 04/23/18 MORPHINE SULFATE INJECTION [...] IA Completed 05/23/18 ROUTINE VENIPUNCTURE Completed 05/23/18 Computed tomography of abdomen and pelvis with Completed 04/23/18 TAMMIE DEVLIN MD contrast Computed tomography of abdomen and pelvis with Completed 06/09/18 EMELIA CHI MD contrast Encounters Encounter Location Arrival/Admit Date Discharge/Depart Date Attending Provider Departed [place] 06/09/18 5:49pm 06/09/18 11:45pm EMELIA CHI Emergency Room [facility] Registered [place] 05/23/18 8:49am ASHLEY [facility] SALOMÓN Kaur MD Medical Ctr Registered [place] 05/17/18 11:53am QUITA [facility] T[facility]E [facility] Discharged [place] 04/23/18 4:14pm 04/26/18 3:41pm QUITA Inpatient (obs) [facility] T[facility] Recent Diagnosis
--- OUTSIDE RECORDS SUMMARY | 2018-07-23 14:14 | XMS REPORT | Continuity of Care Document ---
:[address] [facility] Address [address] [place] [address] Phone Unavailable Care Team Providers Name Role Phone TAMMIE DEVLIN MD Primary Care Physician Insurance Providers Guarantor Yaneli Shetty Address [address] [place] [address] Email [email or web address] Payer [facility] Policy Number [id number] Subscriber's Name Yaneli Shetty Relationship Self / Same As Patient Group Number [id number] Group Name [employer] Advance Directives Directive Response Recorded Date/Time Advance Directives No 03/21/14 10:10am Advance Directive on File No 07/10/18 7:39pm Resuscitation Status Full Code 07/11/18 5:45pm Directive to Physicians/Living Will No 03/21/14 10:10am Health Care Proxy No 03/21/14 10:10am Organ Donor No 03/21/14 10:10am Medical Power of Nursing Service Administrator No 03/21/14 10:10am Patient/Family Given Education Material R/T Y - 07/10/18..MA 07/10/18 7: 39pm Directives? Chief Complaint and Reason for Visit Chief Complaint RIGHT LOWER LOBE PNEUMONIA Reason for Visit Bronchitis Ulcerative colitis Bronchitis Immunosuppressed status Community acquired bacterial pneumonia Immunosuppressed status Ulcerative colitis Acute sinusitis Problems Medical Problem Onset Date Status Acute sinusitis Unknown Acute Bronchitis Unknown Acute Community acquired bacterial pneumonia Unknown Acute Immunosuppressed status Unknown Chronic Ulcerative colitis Unknown Chronic Ulcerative colitis Unknown Chronic Surgical Problem Onset Date Status Status post 03/21/2014 Acute Past Problems Medical Problem Onset Date Status GI bleeding Unknown Acute General symptom Unknown Acute Hypotension Unknown Acute Pneumonia Unknown Acute Medications Current Home Medications Medication Dose Units Route Directions Days Qty Instructions Start Date Citalopram 1 Tab ORAL Daily 30 Tablet Hydrobromide * 20 Mg Tab Fluticasone 2 [place] NASAL Daily for 30 Days 1 Inh Propionate 50 Sinus Allergy 8 Mcg/Act Spr Levofloxacin 1 Tab ORAL Daily for 7 Tablet (Levofloxacin Infection 8 750 Mg) 750 Mg Tab Multiple 1 Tab ORAL Once Daily Vitamin * (Multivitamin *) Tab Phenyleph-Prome 10 Ml ORAL Three Times 5 Days 180 thazine W/ Cod Daily As Milliliter 8 (Promethazine Needed as Vc/Codeine) Syp needed for Cold Symptoms Tramadol Hcl 1 Tab ORAL Three Times 10 Days 90 Tablet (Tramadol Hcl Daily As 8 50 Mg (Ultram) Needed for *) 50 Mg Tab Unknown Past Home Medications Medication Directions Ordered Status Azathioprine (Azathioprine *) 50 Once Daily Discontinued Mg Tab, 50 Mg Oral Budesonide (Uceris) 9 Mg Tab, 9 Once Daily Discontinued Mg Oral Cefdinir (Omnicef) 300 Mg Cap, 1 Twice A Day for Infection 07/08/18 Discontinued Cap Oral Guaifenesin/Codeine (Cheratussin Every 6 Hours As Needed as 07/08/18 Discontinued Ac) 5 Ml Syrp, 5 Ml Oral needed for Cough And Congestion Hydrocodone-Acetaminophen 5/325MG Every 4-6H As Needed/ Pain as 03/24/14 Discontinued * ([place] 5/325MG *) 1 Tab Tab, needed for Pain 1-2 Tabs Oral Ibuprofen 800 Mg Tab, 800 Mg Oral Every 6 Hours As Needed 03/24/14 Discontinued Infliximab (Remicade Sdv 100 Mg As Directed Discontinued (10 Mg/Ml) *) 100 Mg Inj, 0 Intravenous Mesalamine (Asacol Hd) 800 Mg Daily for Unknown 04/26/18 Discontinued Tab, 2.4 Gm Oral Prednisone (Prednisone 20 Mg*) 20 Daily for Uc 07/08/18 Discontinued Mg Tab, 40 Mg Oral Prednisone (Prednisone 20 Mg*) 20 Daily for Unknown 04/26/18 Discontinued Mg Tab, 1 Tab Oral Prednisone (Prednisone 5 Mg) 5 Mg Daily for Unknown 04/26/18 Discontinued Alberto, 10 Mg Oral Multivit-Min W/Fe-Fa * Once Daily Discontinued ( *) Tab, 1 Tab Oral Social History Social History Problem Response Recorded Date/Time Onset Date Status Hx Physical Abuse No 07/10/2018 7:45pm Not Applicable Not Applicable Smoking Status Start Date Stop Date Never smoker Hospital Discharge Instructions No hospital discharge instruction information available. Plan of Care Discharge Date 07/13/18 5:00pm Disposition PATIENT DISCHARGE HOME OR SELF Instructions/Education Provided Sinusitis, Adult, [id number] Acetaminophen; Chlorpheniramine; Phenylephrine; Phenyltoloxamine tablet Ulcerative Colitis, Adult Levofloxacin tablets Fluticasone; Salmeterol inhalation aerosol Community-Acquired Pneumonia, Adult, Fulr-[id number] Forms Provided Portal Welcome Letter Prescriptions See Medication Section Functional Status No functional status information available. Allergies, Adverse Reactions, Alerts No known allergies. Immunizations No immunization information available. Vital Signs Acute Vital Signs Vital Response Date/Time Blood Pressure 144/87 mm Hg 07/13/2018 11:27am Pulse Pulse Rate (adult) 52 beats per minute (60 - 100) 07/13/2018 11:27am Respiratory Rate 18 breaths per minute (10 - 24) 07/13/2018 11:27am Temperature Source Oral 07/13/2018 11:27am Height 5 ft 5 in 07/10/2018 3:30pm Weight 238.38 lb 07/11/2018 4:47am Body Mass Index 39.7 kg/m^2 07/11/2018 4:47am Results Laboratory Results Test Name Result Units Flags Reference Collection Result Comments Date/Time Date/Time Erythrocyte 16 mm/hr 0.00-20 07/07/2018 07/07/2018 Sedimentation Rate 3:12am 3:24am White Blood Count 12.6 K/ul H 4.0-11.5 07/12/2018 07/12/2018 9:07am 9:21am Red Blood Count 4.14 M/ul 3.80-5.20 07/12/2018 07/12/2018 9:07am 9:21am Hemoglobin 12.2 g/dl 10.5-15.7 07/12/2018 07/12/2018 9:07am 9:21am Hematocrit 37.4 % 34.0-50.0 07/12/2018 07/12/2018 9:07am 9:21am Mean Corpuscular 90.3 fl 78-98 07/12/2018 07/12/2018 Volume 9:07am 9:21am Mean Corpuscular 29.4 pg 26.2-33.4 07/12/2018 07/12/2018 Hemoglobin 9:07am 9:21am Mean Corpuscular 32.6 g/dl 31.5-36.2 07/12/2018 07/12/2018 Hemoglobin Concent 9:07am 9:21am Red Cell 13.4 % 11.5-15.5 07/12/2018 07/12/2018 Distribution Width 9:07am 9:21am Platelet Count 244 K/ul 137-338 07/12/2018 07/12/2018 9:07am 9:21am Mean Platelet 5.8 fl L 8.4-11.8 07/12/2018 07/12/2018 Volume 9:07am 9:21am Neutrophils (%) 85.9 % H 44.4-80.1 07/12/2018 07/12/2018 (Auto) 9:07am 9:21am Lymphocytes (%) 11.8 % 10.0-50.0 07/12/2018 07/12/2018 (Auto) 9:07am 9:21am Monocytes (%) 2.1 % L 3.6-12.04 07/12/2018 07/12/2018 (Auto) 9:07am 9:21am Eosinophils (%) 0.0 % 0.0-5.41 07/12/2018 07/12/2018 (Auto) 9:07am 9:21am Basophils (%) 0.2 % 0.0-0.79 07/12/2018 07/12/2018 (Auto) 9:07am 9:21am Urine Color LIGHT 07/10/2018 07/10/2018 YELLOW 5:18pm 5:42pm Urine Appearance CLEAR CLEAR 07/10/2018 07/10/2018 5:18pm 5:42pm Urine Glucose NEGATIVE NEGATIVE 07/10/2018 07/10/2018 5:18pm 5:42pm Urine Bilirubin NEGATIVE NEGATIVE 07/10/2018 07/10/2018 5:18pm 5:42pm Urine Ketones NEGATIVE NEGATIVE 07/10/2018 07/10/2018 5:18pm 5:42pm Urine Specific 1.010 1.003-1.03 07/10/2018 07/10/2018 [place] 0 5:18pm 5:42pm Urine Blood NEGATIVE NEGATIVE 07/10/2018 07/10/2018 5:18pm 5:42pm Urine pH 6.000 5-9 07/10/2018 07/10/2018 5:18pm 5:42pm Urine Protein NEGATIVE NEGATIVE 07/10/2018 07/10/2018 5:18pm 5:42pm Urine Urobilinogen NORMAL mg/dL 0.2-1.0 07/10/2018 07/10/2018 5:18pm 5:42pm Urine Nitrate NEGATIVE NEGATIVE 07/10/2018 07/10/2018 5:18pm 5:42pm Urine Leukocyte NEGATIVE NEGATIVE 07/10/2018 07/10/2018 Esterase 5:18pm 5:42pm Urine RBC <1 /hpf 0-5 07/10/2018 07/10/2018 5:18pm 5:45pm Urine WBC <1 /hpf 0-5 07/10/2018 07/10/2018 5:18pm 5:45pm Urine Epithelial 1-5 /hpf 0-5 07/10/2018 07/10/2018 Cells 5:18pm 5:45pm Urine Bacteria None /hpf None 07/10/2018 07/10/2018 Detected Detect 5:18pm 5:45pm Urine Casts 2-5 /lpf None 07/10/2018 07/10/2018 Detect 5:18pm 5:45pm Urine Culture NO 07/10/2018 07/10/2018 Reflexed 5:18pm 5:45pm Random Glucose 186 mg/dL H 74-106 07/12/2018 07/12/2018 9:07am 9:29am Blood Urea 14 mg/dL 6-20 07/12/2018 07/12/2018 Nitrogen 9:07am 9:29am Serum Osmolality 283 280-300 07/12/2018 07/12/2018 9:07am 9:29am Creatinine 0.6 mg/dL 0.50-0.90 07/12/2018 07/12/2018 9:07am 9:29am Glomerular > 60.00 07/12/2018 07/12/2018 GFR RESULTS ARE REPORTED IN mL/min/1.73m2. Filtration Rate 9:07am 9:29am Calc Normal GFR: >60mL/min Moderately decreased GFR: 30-59 mL/min Severely decreased GFR: 15-29 mL/min Kidney Failure (or Dialysis): <15 mL/min The calculated eGFR is not valid for patients younger than 18 years or older than 75 years. BUN/Creatinine 23.3 H 07-0507/12/2018 07/12/2018 Ratio 9:07am 9:29am Sodium Level 139 mmol/L 135-145 07/12/2018 07/12/2018 9:07am 9:29am Potassium Level 3.4 mmol/L L 3.5-5.2 07/12/2018 07/12/2018 9:07am 9:29am Chloride Level 103 mmol/L 98-108 07/12/2018 07/12/2018 9:07am 9:29am Carbon Dioxide 24 mmol/L 21-32 07/12/2018 07/12/2018 Level 9:07am 9:29am Anion Gap 15.4 mEq/L 07-0507/12/2018 07/12/2018 9:07am 9:29am Calcium Level 8.9 mg/dL 8.6-10.0 07/12/2018 07/12/2018 9:07am 9:29am Total Protein 6.5 g/dL L 6.6-8.7 07/10/2018 07/10/2018 4:11pm 4:55pm Albumin 3.6 g/dL 3.5-5.2 07/10/2018 07/10/2018 4:11pm 4:55pm Globulin 2.9 gm/dL 07/10/2018 07/10/2018 4:11pm 4:55pm Albumin/Globulin 1.2 >1.0 07/10/2018 07/10/2018 Ratio 4:11pm 4:55pm Total Bilirubin 0.4 mg/dL 0.0-1.2 07/10/2018 07/10/2018 4:11pm 4:55pm Aspartate Amino 37 U/L H 15-32 07/10/2018 07/10/2018 Transf (AST/SGOT) 4:11pm 4:55pm Alanine 39 U/L H 0-33 07/10/2018 07/10/2018 Aminotransferase 4:11pm 4:55pm (ALT/SGPT) Total Alkaline 60 U/L 35-105 07/10/2018 07/10/2018 Phosphatase 4:11pm 4:55pm Urine Legionella Negative Negative 07/10/2018 07/13/2018 Presumptive negative for L. pneumophila serogroup 1 antigen Antigen 5:18pm 1:15pm in urine, suggesting no recent or current infection. Legionnaires' disease cannot be ruled out since other serogroups and species may also cause disease. Performed at: - [facility] [id number] Utilization Management Um Nurse: Hari Corona MD, Phone: [phone] C-Reactive Protein 1.4 mg/L 0.0-5.0 05/17/2018 05/17/2018 High Sensitivity 11:57am 12:49pm Thiopurine 18.8 05/28/2018 06/22/2018 S-Methyltransferas 9:34am 9:20am e TPMT Hepatitis B Core Negative Negative 05/23/2018 05/24/2018 Total Antibody 9:23am 7:11am Hepatitis B Core Negative Negative 05/23/2018 05/24/2018 [facility] Antibody 9:23am 7:11am [address] [place], [place] [id number] Utilization Management Um Nurse: Gustavo Cerna MD, Phone: [phone] Hepatitis B Reactive . 05/23/2018 05/24/2018 Non Reactive: Inconsistent with immunity, Surface Antibody 9:23am 7:11am less than 10 mIU/mL Reactive: Consistent with immunity, greater than 9.9 mIU/mL Hepatitis C RNA NEGATIVE 05/28/2018 06/22/2018 9:34am 9:20am Hepatitis C 0 IU/mL 05/28/2018 06/22/2018 Antibody 9:34am 9:20am Hepatitis B Negative Negative 05/23/2018 05/24/2018 Surface Antigen 9:23am 7:11am Pending Laboratory Results Test Name Collection Date/Time Mycoplasma Pneumoniae Antibody 07/10/2018 7:59pm Mycoplasma pneumoniae IgM Antibody 07/10/2018 7:59pm TPMT Interpretation 05/28/2018 9:34am TPMT Method 05/28/2018 9:34am TB Test (QFT) 05/23/2018 9:23am TB Test (QFT) Positive Criteria 05/23/2018 9:23am TB Test (QFT) Antigen 05/23/2018 9:23am TB Test (QFT) Nil 05/23/2018 9:23am TB Test (QFT) Mitogen 05/23/2018 9:23am TB Test (QFT) Antigen Minus Nil 05/23/2018 9:23am TB Test (QFT) Interpretation 05/23/2018 9:23am Microbiology Results Procedure Source Organism/Result Collection Result Result Status Date/Time Date/Time Blood Culture Blood SPECIMEN HAS BEEN 07/10/2018 07/10/2018 Preliminary RECEIVED IN LAB AND 4:56pm 5:04pm IS IN PROGRESS. Throat Culture Throat No growth. 07/10/2018 07/11/2018 Final 3:54pm 4:15pm Procedures Procedure Status Date Provider(s) X-RAY EXAM CHEST 1 VIEW Completed 07/06/18 BLOOD CULTURE FOR BACTERIA Completed 07/06/18 BLOOD CULTURE FOR BACTERIA Completed 07/06/18 HEMATOCRIT Completed 07/06/18 HEMATOCRIT Completed 07/06/18 HEMOGLOBIN Completed 07/06/18 HEMOGLOBIN Completed 07/06/18 SMEAR GRAM STAIN Completed 07/06/18 ROUTINE VENIPUNCTURE Completed 07/06/18 CULTURE OTHR SPECIMN AEROBIC Completed 07/06/18 COMPLETE CBC W/AUTO DIFF WBC Completed 07/06/18 RBC SED RATE AUTOMATED Completed 07/06/18 URINALYSIS AUTO W/SCOPE Completed 07/06/18 ROUTINE VENIPUNCTURE Completed 07/06/18 METABOLIC PANEL TOTAL CA Completed 07/06/18 X-RAY EXAM CHEST 1 VIEW Completed 07/06/18 Completed 07/06/18 MORPHINE SULFATE INJECTION Completed 07/06/18 MORPHINE SULFATE INJECTION Completed 07/06/18 COMPREHEN METABOLIC PANEL Completed 05/17/18 COMPLETE CBC [...] PANEL Completed 06/09/18 Completed 06/09/18 Completed 06/09/18 METABOLIC PANEL TOTAL CA Completed 06/18/18 COMPLETE CBC AUTOMATED Completed 06/18/18 ROUTINE VENIPUNCTURE Completed 06/18/18 Computed tomography of abdomen and pelvis Completed 06/09/18 EMELIA CHI MD with contrast X-ray of chest, single view Completed 07/06/18 TAMMIE DEVLIN MD X-ray of chest, single view Completed 07/08/18 SHARON VIVEROS AMMUNITION ASSEMBLY II LABORER-C X-ray of chest, two views Completed 07/10/[address] thorax wo contrast Completed 07/12/18 TAMMIE DEVLIN MD X-ray of paranasal sinuses, three or more Completed 07/12/18 TAMMIE DEVLIN MD views Computed tomography of head without Completed 07/13/18 TAMMIE DEVLIN MD contrast Encounters Encounter Location Arrival/Admit Date Discharge/Depart Date Attending Provider Discharged [place] 07/10/18 6:29pm 07/13/18 5:00pm QUITA Inpatient (obs) Luly CHO MD Medical Ctr Discharged [place] 07/06/18 1:05pm 07/08/18 1:55pm QUITA Inpatient (obs) Luly CHO MD Medical Ctr Registered [place] 06/26/18 9:18am ASHLEY [facility] SALOMÓN Kaur MD Medical Ctr Registered [place] 06/18/18 11:31am QUITA [facility] TAMMIE DILLON Medical Ctr Discharged [place] 06/12/18 11:37am 06/15/18 11:59pm VERNON THOMASON [facility]tr Departed [place] 06/09/18 5:49pm 06/09/18 11:45pm EMELIA CHI Emergency Room [facility] Natasha DILLON Medical Ctr Registered [place] 05/23/18 8:49am ASHLEY [facility] SALOMÓN Kaur MD Medical Ctr Registered [place] 05/17/18 11:53am QUITA [facility] TAMMIE DILLON Medical Ctr Recent Diagnosis Bronchitis Ulcerative colitis Bronchitis Immunosuppressed status Community acquired bacterial pneumonia Immunosuppressed status Ulcerative colitis Acute sinusitis
--- OUTSIDE RECORDS SUMMARY | 2018-07-23 14:14 | XMS REPORT | Continuity of Care Document ---
:1980 Author Organization [facility] Address [address] [place] [address] Phone Unavailable Care Team Providers Name Role Phone TAMMIE DEVLIN MD Primary Care Physician Insurance Providers Guarantor Maura Shetty Address [address] [place] [address] Email [email or web address] Payer [facility] Policy Number [id number] Subscriber's Name Maura Shetty Relationship Self / Same As Patient Group Number [id number] Group Name [employer] Advance Directives Directive Response Recorded Date/Time Advance Directives No 03/21/14 10:10am Advance Directive on File No 07/06/18 1:41pm Directive to Physicians/Living Will No 03/21/14 10:10am Health Care Proxy No 03/21/14 10:10am Organ Donor No 03/21/14 10:10am Medical Power of Irrigationist Designer No 03/21/14 10:10am Patient/Family Given Education Material R/T Y - PB 07/06/18 07/06/18 1:41pm Directives? Chief Complaint and Reason for Visit Chief Complaint SEVERE DEHYDRATION,ULCERATIVE COLITIS Reason for Visit Bronchitis Ulcerative colitis Problems Medical Problem Onset Date Status Bronchitis Unknown Acute Ulcerative colitis Unknown Chronic Surgical Problem Onset Date Status Status post 03/21/2014 Acute Past Problems Medical Problem Onset Date Status GI bleeding Unknown Acute Hypotension Unknown Acute Medications Current Home Medications Medication Dose Units Route Directions Days Qty Instructions Start Date Cefdinir 1 Cap ORAL Twice A Day 7 Days 14 Cap (Omnicef) 300 for Infection 8 Mg Cap Citalopram 1 Tab ORAL Daily 30 Tablet Hydrobromide * 20 Mg Tab Guaifenesin/Cod 5 Ml ORAL Every 6 Hours 6 Days 120 eine As Needed as Milliliter 8 (Cheratussin needed for Ac) 5 Ml Syrp Cough And Congestion Multiple 1 Tab ORAL Once Daily Vitamin * (Multivitamin *) Tab Prednisone 40 Mg ORAL Daily for Uc 7 Days 7 Tablet (Prednisone 20 8 Mg*) 20 Mg Tab Tramadol Hcl 1 [...] As Needed/ Pain as 03/24/14 Discontinued * ([place] 5/325MG *) 1 Tab Tab, needed for [...] Onset Date Status Hx Physical Abuse No 07/06/2018 1:51pm Not Applicable Not Applicable Smoking Status Start Date Stop Date Former smoker Hospital Discharge Instructions No hospital discharge instruction information available. Plan of Care Discharge Date 07/08/18 1:55pm Disposition PATIENT DISCHARGE HOME OR SELF Instructions/Education Provided Cefdinir capsules Acute Bronchitis, Adult, [id number] Ulcerative Colitis, Adult Codeine; Guaifenesin oral solution or syrup Prednisone oral solution Forms Provided Portal Welcome Letter Prescriptions See Medication Section Care Plan and Goals please call and schedule a follow-up appointment with your pcp in 5-7 days for post-hospital evaluation and treatment Functional Status No functional status information available. Allergies, Adverse Reactions, Alerts No known allergies. Immunizations No immunization information available. Vital Signs Acute Vital Signs Vital Response Date/Time Blood Pressure 125/67 mm Hg 07/08/2018 11:02am Pulse Pulse Rate (adult) 61 beats per minute (60 - 100) 07/08/2018 11:02am Respiratory Rate 18 breaths per minute (10 - 24) 07/08/2018 11:02am Temperature Source Oral 07/08/2018 11:02am Results Laboratory Results Test Name Result Units Flags Reference Collection Result Comments Date/Time Date/Time White Blood Count 4.5 K/ul 4.0-11.5 07/07/2018 07/07/2018 3:12am 3:22am Red Blood Count 3.90 M/ul 3.80-5.20 07/07/2018 07/07/2018 3:12am 3:22am Hemoglobin 11.7 g/dl 10.5-15.7 07/07/2018 07/07/2018 3:12am 3:22am Hematocrit 35.6 % 34.0-50.0 07/07/2018 07/07/2018 3:12am 3:22am Mean Corpuscular 91.2 fl 78-98 07/07/2018 07/07/2018 Volume 3:12am 3:22am Mean Corpuscular 30.0 pg 26.2-33.4 07/07/2018 07/07/2018 Hemoglobin 3:12am 3:22am Mean Corpuscular 32.9 g/dl 31.5-36.2 07/07/2018 07/07/2018 Hemoglobin Concent 3:12am 3:22am Red Cell 13.8 % 11.5-15.5 07/07/2018 07/07/2018 Distribution Width 3:12am 3:22am Platelet Count 232 K/ul 137-338 07/07/2018 07/07/2018 3:12am 3:22am Mean Platelet 5.3 fl L 8.4-11.8 07/07/2018 07/07/2018 Volume 3:12am 3:22am Neutrophils (%) 76.5 % 44.4-80.1 07/07/2018 07/07/2018 (Auto) 3:12am 3:22am Lymphocytes (%) 16.4 % 10.0-50.0 07/07/2018 07/07/2018 (Auto) 3:12am 3:22am Monocytes (%) 5.9 % 3.6-12.04 07/07/2018 07/07/2018 (Auto) 3:12am 3:22am Eosinophils (%) 0.6 % 0.0-5.41 07/07/2018 07/07/2018 (Auto) 3:12am 3:22am Basophils (%) 0.5 % 0.0-0.79 07/07/2018 07/07/2018 (Auto) 3:12am 3:22am Erythrocyte 16 mm/hr 0.00-20 07/07/2018 07/07/2018 Sedimentation Rate 3:12am 3:24am Urine Color COLORLESS 07/07/2018 07/07/2018 2:56am 3:13am Urine Appearance CLEAR CLEAR 07/07/2018 07/07/2018 2:56am 3:13am Urine Glucose NEGATIVE NEGATIVE 07/07/2018 07/07/2018 2:56am 3:13am Urine Bilirubin NEGATIVE NEGATIVE 07/07/2018 07/07/2018 2:56am 3:13am Urine Ketones 2+(MODERATE H NEGATIVE 07/07/2018 07/07/2018 ) 2:56am 3:13am Urine Specific 1.008 1.003-1.03 07/07/2018 07/07/2018 [place] 0 2:56am 3:13am Urine Blood NEGATIVE NEGATIVE 07/07/2018 07/07/2018 2:56am 3:13am Urine pH 7.000 5-9 07/07/2018 07/07/2018 2:56am 3:13am Urine Protein NEGATIVE NEGATIVE 07/07/2018 07/07/2018 2:56am 3:13am Urine Urobilinogen NORMAL mg/dL 0.2-1.0 07/07/2018 07/07/2018 2:56am 3:13am Urine Nitrate NEGATIVE NEGATIVE 07/07/2018 07/07/2018 2:56am 3:13am Urine Leukocyte NEGATIVE NEGATIVE 07/07/2018 07/07/2018 Esterase 2:56am 3:13am Urine RBC <1 /hpf 0-5 07/07/2018 07/07/2018 2:56am 3:21am Urine WBC <1 /hpf 0-5 07/07/2018 07/07/2018 2:56am 3:21am Urine Epithelial 1-5 /hpf 0-5 07/07/2018 07/07/2018 Cells 2:56am 3:21am Urine Bacteria None /hpf None 07/07/2018 07/07/2018 Detected Detect 2:56am 3:21am Urine Casts None /lpf None 07/07/2018 07/07/2018 Detected Detect 2:56am 3:21am Urine Culture NO 07/07/2018 07/07/2018 Reflexed 2:56am 3:13am Random Glucose 123 mg/dL H 74-106 07/07/2018 07/07/2018 3:12am 3:42am Blood Urea 5 mg/dL L 01-0307/07/2018 07/07/2018 Nitrogen 3:12am 3:42am Serum Osmolality 276 L 280-300 07/07/2018 07/07/2018 3:12am 3:42am Creatinine 0.6 mg/dL 0.50-0.90 07/07/2018 07/07/2018 3:12am 3:42am Glomerular > 60.00 07/07/2018 07/07/2018 GFR RESULTS ARE REPORTED IN mL/min/1.73m2. Filtration Rate 3:12am 3:42am Calc Normal GFR: >60mL/min Moderately decreased GFR: 30-59 mL/min Severely decreased GFR: 15-29 mL/min Kidney Failure (or Dialysis): <15 mL/min The calculated eGFR is not valid for patients younger than 18 years or older than 75 years. BUN/Creatinine 8.3 L 07-0507/07/2018 07/07/2018 Ratio 3:12am 3:42am Sodium Level 139 mmol/L 135-145 07/07/2018 07/07/2018 3:12am 3:42am Potassium Level 3.7 mmol/L 3.5-5.2 07/07/2018 07/07/2018 3:12am 3:42am Chloride Level 104 mmol/L 98-108 07/07/2018 07/07/2018 3:12am 3:42am Carbon Dioxide 23 mmol/L 21-32 07/07/2018 07/07/2018 Level 3:12am 3:42am Anion Gap 15.7 mEq/L 12-07/07/2018 07/07/2018 3:12am 3:42am Calcium Level 8.6 mg/dL 8.6-10.0 07/07/2018 07/07/2018 3:12am 3:42am C-Reactive Protein 1.4 mg/L 0.0-5.0 05/17/2018 05/17/2018 High Sensitivity 11:57am 12:49pm Thiopurine 18.8 05/28/2018 06/22/2018 S-Methyltransferas 9:34am 9:20am e TPMT Hepatitis B Core Negative Negative 05/23/2018 05/24/2018 Total Antibody 9:23am 7:11am Hepatitis B Core Negative Negative 05/23/2018 05/24/2018 Performed at : [facility] IgM Antibody 9:23am 7:11am [address] [place], [place] [id number] Microbiology Soil Scientist: Gustavo Cerna MD, Phone: [phone] Hepatitis B Reactive . 05/23/2018 05/24/2018 Non Reactive: Inconsistent with immunity, Surface Antibody 9:23am 7:11am less than 10 mIU/mL Reactive: Consistent with immunity, greater than 9.9 mIU/mL Hepatitis C RNA NEGATIVE 05/28/2018 06/22/2018 9:34am 9:20am Hepatitis C 0 IU/mL 05/28/2018 06/22/2018 Antibody 9:34am 9:20am Hepatitis B Negative Negative 05/23/2018 05/24/2018 Surface Antigen 9:23am 7:11am Total Protein 6.5 g/dL L 6.6-8.7 06/09/2018 06/09/2018 7:31pm 8:01pm Albumin 3.8 g/dL 3.5-5.2 06/09/2018 06/09/2018 7:31pm 8:01pm Globulin 2.7 gm/dL 06/09/2018 06/09/2018 7:31pm 8:01pm Albumin/Globulin 1.4 >1.0 06/09/2018 06/09/2018 Ratio 7:31pm 8:01pm Total Bilirubin 0.5 mg/dL 0.0-1.2 06/09/2018 06/09/2018 7:31pm 8:01pm Aspartate Amino 10 U/L L 15-32 06/09/2018 06/09/2018 Transf (AST/SGOT) 7:31pm 8:01pm Alanine 10 U/L 0-33 06/09/2018 06/09/2018 Aminotransferase 7:31pm 8:01pm (ALT/SGPT) Total Alkaline 56 U/L 35-105 06/09/2018 06/09/2018 Phosphatase 7:31pm 8:01pm Pending Laboratory Results Test Name Collection Date/Time TPMT Interpretation 05/28/2018 9:34am TPMT Method 05/28/2018 [...] Date/Time Blood Culture Blood SPECIMEN HAS BEEN 07/06/2018 07/06/2018 Preliminary RECEIVED IN LAB AND 6:53pm 7:02pm IS IN PROGRESS. Procedures Procedure Status Date Provider(s) COMPREHEN METABOLIC PANEL Completed 05/17/18 COMPLETE CBC [...] chest, single view Completed 07/08/18 SHARON VIVEROS BREAD MOLDER-C Encounters Encounter Location Arrival/Admit Date Discharge/Depart Date Attending Provider Discharged [place] 07/06/18 1:05pm 07/08/18 1:55pm QUITA Inpatient (obs) [facility] TAMMIE DILLON Medical Ctr Registered [place] 06/26/18 9:18am ASHLEY [facility] SALOMÓN Kaur MD Medical Ctr Registered [place] 06/18/18 11:31am QUITA [facility] TAMMIE DILLON Medical Ctr Discharged [place] 06/12/18 11:37am 06/15/18 11:59pm VERNON THOMASON [facility] Medical Ctr Departed [place] 06/09/18 5:49pm 06/09/18 11:45pm EMELIA CHI Emergency Room [facility] Natasha DILLON Medical Ctr Registered [place] 05/23/18 8:49am ASHLEY [facility] SALOMÓN Kaur MD Medical Ctr Registered [place] 05/17/18 11:53am QUITA [facility] TAMMIE DILLON Medical Ctr Recent Diagnosis Bronchitis Ulcerative colitis
--- OUTSIDE RECORDS SUMMARY | 2018-07-23 14:14 | XMS REPORT | Continuity of Care Document ---
:1980 Author Organization [facility] Address [address] [place] [address] Phone Unavailable Care Team Providers Name Role Phone TAMMIE DEVLIN MD Primary Care Physician Insurance Providers Guarantor Yaneli Shetty Address [address] [place] [address] Email [email or web address] Payer [facility] Policy Number [id number] Subscriber's Name Yaneli Shetty Relationship Self / Same As Patient Group Number [id number] Group Name [employer] Advance Directives Directive Response Recorded Date/Time Advance Directives No 03/21/14 10:10am Advance Directive on File No 07/10/18 7:39pm Resuscitation Status Full Code 07/11/18 5:45pm Directive to Physicians/Living Will No 03/21/14 10:10am Health Care Proxy No 03/21/14 10:10am Organ Donor No 03/21/14 10:10am Medical Power of Mold Capper Helper No 03/21/14 10:10am Patient/Family Given Education Material [...] Hydrobromide * 20 Mg Tab Fluticasone 2 [place] NASAL Daily for 30 Days 1 Inh [...] As Needed/ Pain as 03/24/14 Discontinued * (Hasty 5/325MG *) 1 Tab Tab, needed for [...] HOME OR SELF Instructions/Education Provided Sinusitis, Adult, [id number] Acetaminophen; Chlorpheniramine; Phenylephrine; Phenyltoloxamine tablet Ulcerative Colitis, Adult Levofloxacin tablets Fluticasone; Salmeterol inhalation aerosol Community-Acquired Pneumonia, Adult, [id number] Forms Provided Portal Welcome Letter Prescriptions See [...] 5:42pm Urine Specific 1.010 1.003-1.03 07/10/2018 07/10/2018 [place] 0 5:18pm 5:42pm Urine Blood NEGATIVE NEGATIVE [...] Culture NO 07/10/2018 07/10/2018 Reflex[place] 5:18pm 5:45pm POC Capillary 573 mg/dL H* 70.0 - 110 07/14/2018 07/14/2018 Blood Glucose 8:19pm 10:05pm (Chem) Random Glucose 186 mg/dL H 74-106 07/12/2018 [...] U/L 35-105 07/10/2018 07/10/2018 Phosphatase 4:11pm 4:55pm Mycoplasma 471 U/mL H 0-99 07/10/2018 07/13/2018 Negative: <100 Pneumoniae 7:59pm 10:10pm Indeterminate : 100 - 320 Antibody Positive: >320 The reference interval established is intended as a baseline only. Values >100 may indicate a recent infection with Mycoplasma pneumoniae and need to be confirmed either by a positive IgM result and/or an additional specimen drawn 2-4 weeks later showing a significant increase in antibody levels. Mycoplasma <770 U/mL 0-769 07/10/2018 07/13/2018 Negative <770 pneumoniae IgM 7:59pm 10:10pm Clinically significant amount of M. pneumoniae antibody Antibody not detected. Low Positive 770 - 950 M. pneumoniae specific IgM presumptively detected. It is recommended that another sample be collected 1-2 weeks later to assure reactivity. Positive >950 Highly significant amount of M. pneumoniae specific IgM antibody detected. Performed at: [facility] [employer] [id number] [employer] Operator: Hari Corona MD, Phone: [phone] Urine Legionella Negative Negative 07/10/2018 07/13/2018 Presumptive negative for L. pneumophila serogroup 1 antigen Antigen 5:18pm 1:15pm in urine, suggesting no recent or current infection. Legionnaires' disease cannot be ruled out since other serogroups and species may also cause disease. Performed at: [facility] [employer] [id number] [employer] Operator: Hari Corona MD, Phone: [phone] Thiopurine 18.8 05/28/2018 06/22/2018 S-Methyltransferas 9:34am 9:20am e TPMT Hepatitis B Core Negative Negative 05/23/2018 05/24/2018 Total Antibody 9:23am 7:11am Hepatitis B Core Negative Negative 05/23/2018 05/24/2018 Performed at : - [facility] [place] IgM Antibody 9:23am 7:11am [address] [place], [place] [id number] [employer] Operator: Gustavo Cerna MD, Phone: [phone] Hepatitis B Reactive . 05/23/2018 05/24/2018 Non [...] Status Date/Time Blood Culture Blood FINAL REPORT. 07/10/2018 4:56pm 07/10/2018 Final 5:04pm Throat Culture Throat No growth. 07/10/2018 3:54pm 07/11/2018 Final 4:15pm Procedures Procedure Status Date Provider(s) X-RAY [...] Completed 07/06/18 MORPHINE SULFATE INJECTION Completed 07/06/18 TB TEST CELL IMMUN MEASURE Completed 05/23/18 [...] chest, single view Completed 07/08/18 SHARON VIVEROS [employer]-C X-ray of chest, two views Completed 07/10/[address] thorax wo contrast Completed 07/12/18 TAMMIE DEVLIN MD X-ray of paranasal sinuses, three or more Completed 07/12/18 TAMMIE DEVLIN MD views Computed tomography of head without Completed 07/13/18 TAMMIE DEVLIN MD contrast Encounters Encounter Location Arrival/Admit Date Discharge/Depart Date Attending Provider Discharged [place] 07/10/18 6:29pm 07/13/18 5:00pm [facility] Inpatient (obs) Luly CHO MD [facility] Discharged [place] 07/06/18 1:05pm 07/08/18 1:55pm [facility] Inpatient (obs) Luly CHO MD Medical [facility]tr Discharged [place] 06/26/18 9:18am 07/16/18 11:59pm [facility] SALOMÓN Kaur MD Medical Ctr Registered [place] 06/18/18 11:31am QUITA [facility] TAMMIE DILLON Medical [facility] Discharged [place] 06/12/18 11:37am 06/15/18 11:59pm VERNON THOMASON [facility] Departed [place] 06/09/18 5:49pm 06/09/18 11:45pm [facility] Natasha DILLON Medical [facility] Registered [place] 05/23/18 8:49am Jonelle [facility] SALOMÓN Kaur MD Medical Ctr Recent Diagnosis Bronchitis Ulcerative colitis Bronchitis Immunosuppressed status Community acquired bacterial pneumonia Immunosuppressed status Ulcerative colitis Acute sinusitis
--- OUTSIDE RECORDS SUMMARY | 2018-07-23 14:15 | XMS REPORT | Encounter Summary ---
:1980 Author Care Team Providers Name Role Phone Hiram Gómez MD Primary Care Provider Unavailable Reason for Visit Follow Up Visit Instructions 1. Acute maxillary sinusitis sinusitis: care instructions 2. Nausea and vomiting nausea and vomiting: care instructions 3. Ulcerative colitis ulcerative colitis: care instructions Discussion Note ok to proceed with EGD. Plan of Care Reminders Provider Appointments None recorded. Lab None recorded. Referral None recorded. Procedures None recorded. Surgeries None recorded. Imaging None recorded. Medications Name Start Date azithromycin 250 mg tablet cefdinir 300 mg capsule citalopram 20 mg tablet TAKE 1 TABLET BY MOUTH EVERY DAY FOR DEPRESSION codeine 10 mg-guaifenesin 100 mg/5 mL oral liquid fluconazole 150 mg tablet Take 1 tablet as needed by oral route as directed for 1 day. fluticasone 50 mcg/actuation nasal spray,suspension levofloxacin 750 mg tablet mesalamine 1.2 gram tablet,delayed release mesalamine rectal susp enema with cleansing wipes 4 gram/60 mL kit ondansetron HCl 8 mg tablet Take 1 tablet every 8 hours by oral route for 10 days. pantoprazole 40 mg tablet,delayed release Take 1 tablet twice a day by oral route for 14 days. prednisone 20 mg tablet Promethazine VC-Codeine 6.25 mg-5 mg-10 mg/5 mL syrup Medications Administered None recorded. Vitals Height Weight BMI Blood Pressure 65 in 233 lbs 16 oz 38.9 kg/m2 118/74 mm[Hg] Lab Results Date Name Specimen Result Interpretation Description Value Range Status Address 07/12/2018 CBC W/ Auto High White Blood 12.6 K/uL 4.0-11.5 [place] Diff Count K/uL [facility] (Lab): 104 [facility] Normal Red Blood 4.14 M/uL 3.80-5.20 Final [place] Count M/uL [facility] (Lab): 104 [facility] Normal Hemoglobin 12.2 g/dL 10.5-15.7 [place] g/dL [facility] (Lab): [address] [place] [address] Normal Hematocrit 37.4 % 34.0-50.0 Final [place] % [facility] (Lab): [address] [place] [address] Normal Mean 90.3 fL 78-98 fL [place] Corpuscular [facility] Volume [facility] (Lab): [address] [place] [address] Normal Mean 29.4 pg 26.2-33.4 [place] Corpuscular pg [facility] Hemoglobin [facility] (Lab): [address] [place] [address] Normal Mean 32.6 g/dL 31.5-36.2 [place] Corpuscular g/dL [facility] HGB Conc [facility] (Lab): [address] [place] [address] Normal Red Cell 13.4 % 11.5-15.5 [place] Distribution % [facility] (Lab): [address] [place] [address] Normal Platelet 244 K/uL 137-338 [place] Count K/uL [facility] (Lab): [address] [place] [address] Low Mean 5.8 fL 8.4-11.8 [place] Platelet fL [facility] (Lab): [address] [place] [address] High Neutrophils 85.9 % 44.4-80.1 Corrected [place] % % [facility] (Lab): [address] [place] [address] Normal Lymphocyte% 11.8 % 10.0-50.0 Final [place] % [facility] (Lab): [address] [place] [address] Low Norman % 2.1 % 3.6-12.04 Final [place] % [facility] (Lab): [address] [place] [address] Normal Eos % 0.0 % 0.0-5.41 Final [place] % [facility] (Lab): [address] [place] [address] Normal Basophil % 0.2 % 0.0-0.79 Final [place] % [facility] (Lab): [address] [place] [address] 07/12/2018 Differential Normal Neutrophils Incomplete [place] Panel, Blood [facility] (Lab): [address] [place] [address] Normal Band Incomplete [place] [facility] (Lab): [address] [place] [address] Normal Lymphocyte Incomplete [place] [facility] (Lab): [address] [place] [address] Normal Atypical Incomplete [place] Lymph [facility] (Lab): [address] [place] [address] Normal Monocyte Incomplete [facility] (Lab): [address] [place] [address] Normal Eosinophil Incomplete [facility] (Lab): [address] [place] [address] Normal Basophil Incomplete [facility] (Lab): [address] [place] [address] Normal Nucleated Incomplete [place] Red Blood [facility] Cell [facility] (Lab): [address] [place] [address] Normal Platelet Incomplete [place] Estimate [facility] (Lab): [address] [place] [address] Normal Platelet Incomplete [place] Morphology [facility] (Lab): [address] [place] [address] Normal Polychromasi [facility] (Lab): [address] [place] [address] Normal Hypochromasi [facility] (Lab): [address] [place] [address] Normal Poikilocytos [facility] is [facility] (Lab): [address] [place] [address] Normal Anisocytosis [facility] (Lab): [address] [place] [address] Normal Microcytosis [facility] (Lab): [address] [place] [address] Normal Macrocytosis [facility] (Lab): [address] [place] [address] Normal Schistocytes [facility] (Lab): [address] [place] [address] Normal Target Cells Incomplete [facility] (Lab): [address] [place] [address] Normal Tear Drop Incomplete [place] Cells [facility] (Lab): [address] [place] [address] Normal Ovalocytes Incomplete [facility] (Lab): [address] [place] [address] Normal Stomatocyte Incomplete [facility] (Lab): [address] [place] [address] Normal Sickle Cells Incomplete [facility] (Lab): [address] [place] [address] 07/12/2018 BMP, Serum High Glucose 186 mg/dL 74-106 [place] or Plasma mg/dL [facility] (Lab): [address] [place] [address] Normal Blood Urea 14 mg/dL 6-20 [place] Nitrogen mg/dL [facility] (Lab): [address] [place] [address] Normal Osmolality 283 280-300 Final [place] Calculated, [facility] (Lab): [address] [place] [address] Normal Creatinine 0.6 mg/dL 0.50-0.90 Final [place] mg/dL [facility] (Lab): [address] [place] [address] Normal Glomerular >60.00 Final [place] Filtration [facility] (Lab): [address] [place] [address] High BUN/creatini 23.3 12-20 Final [place] ne Ratio [facility] (Lab): [address] [place] [address] Normal Sodium Level 139 mmol/L 135-145 [place] mmol/L [facility] (Lab): [address] [place] [address] Low Potassium 3.4 mmol/L 3.5-5.2 Final [place] Level mmol/L [facility] (Lab): [address] [place] [address] Normal Chloride 103 mmol/L 98-108 Final [place] Level mmol/L [facility] (Lab): [address] [place] [address] Normal Co2 24 mmol/L 21-32 Final [place] mmol/L [facility] (Lab): [address] [place] [address] Normal Anion Gap 15.4 mEq/L 12-20 [place] mEq/L [facility] (Lab): [address] [place] [address] Normal Calcium 8.9 mg/dL 8.6-10.0 Final [place] Level mg/dL [facility] (Lab): [address] [place] [address] 07/11/2018 CBC W/ Auto Normal White Blood 6.7 K/uL 4.0-11.5 Final [place] Diff Count K/uL [facility] (Lab): [address] [place] [address] Normal Red Blood 4.22 M/uL 3.80-5.20 Final [place] Count M/uL [facility] (Lab): [address] [place] [address] Normal Hemoglobin 12.8 g/dL 10.5-15.7 Final [place] g/dL [facility] (Lab): [address] [place] [address] Normal Hematocrit 38.1 % 34.0-50.0 Final [place] % [facility] (Lab): [address] [place] [address] Normal Mean 90.4 fL 78-98 fL Final [place] Corpuscular [facility] Volume [facility] (Lab): [address] [place] [address] Normal Mean 30.3 pg 26.2-33.4 Final [place] Corpuscular pg [facility] Hemoglobin [facility] (Lab): [address] [place] [address] Normal Mean 33.5 g/dL 31.5-36.2 Final [place] Corpuscular g/dL [facility] (Lab): [address] [place] [address] Normal Red Cell 13.5 % 11.5-15.5 Final [place] Distribution % [facility] (Lab): [address] [place] [address] Normal Platelet 200 K/uL 137-338 Final [place] Count K/uL [facility] (Lab): [address] [place] [address] Low Mean 5.9 fL 8.4-11.8 Final [place] Platelet fL [facility] Volume [facility] (Lab): [address] [place] [address] Normal Neutrophils 78.9 % 44.4-80.1 Corrected [place] % % [facility] (Lab): [address] [place] [address] Normal Lymphocyte% 16.9 % 10.0-50.0 Final [place] % [facility] (Lab): [address] [place] [address] Normal Norman % 3.8 % 3.6-12.04 Final [place] % [facility] (Lab): [address] [place] [address] Normal Eos % 0.1 % 0.0-5.41 Final [place] % [facility] (Lab): [address] [place] [address] Normal Basophil % 0.3 % 0.0-0.79 Final [place] % [facility] (Lab): [address] [place] [address] 07/11/2018 Differential Normal Neutrophils Incomplete [place] Panel, Blood [facility] (Lab): [address] [place] [address] Normal Band Incomplete [place] [facility] (Lab): [address] [place] [address] Normal Lymphocyte Incomplete [place] [facility] (Lab): [address] [place] [address] Normal Atypical Incomplete [place] Lymph [facility] (Lab): [address] [place] [address] Normal Monocyte Incomplete [place] [facility] (Lab): [address] [place] [address] Normal Eosinophil Incomplete [place] [facility] (Lab): [address] [place] [address] Normal Basophil Incomplete [place] [facility] (Lab): [address] [place] [address] Normal Nucleated Incomplete [place] Red Blood [facility] Cell [facility] (Lab): [address] [place] [address] Normal Platelet Incomplete [place] Estimate [facility] (Lab): [address] [place] [address] Normal Platelet Incomplete [place] Morphology [facility] (Lab): [address] [place] [address] Normal Hypochromasi Incomplete [place] a [facility] (Lab): [address] [place] [address] Normal Poikilocytos Incomplete [place] is [facility] (Lab): [address] [place] [address] Normal Anisocytosis Incomplete [place] [facility] (Lab): [address] [place] [address] Normal Schistocytes Incomplete [place] [facility] (Lab): [address] [place] [address] Normal Tear Drop Incomplete [place] Cells [facility] (Lab): [address] [place] [address] Normal Sickle Cells Incomplete [place] [facility] (Lab): [address] [place] [address] 07/11/2018 BMP, Serum High Glucose 202 mg/dL 74-106 Final [place] or Plasma mg/dL [facility] (Lab): [address] [place] [address] Normal Blood Urea 9 mg/dL 6-20 Final [place] Nitrogen mg/dL [facility] (Lab): [address] [place] [address] Low Osmolality 275 280-300 Final [place] Calculated, [facility] (Lab): [address] [place] [address] Low Creatinine 0.4 mg/dL 0.50-0.90 Final [place] mg/dL [facility] (Lab): [address] [place] [address] Normal Glomerular >60.00 Final [place] Filtration [facility] (Lab): [address] [place] [address] High BUN/creatini 22.5 12-20 Final [place] ne Ratio [facility] (Lab): [address] [place] [address] Normal Sodium Level 135 mmol/L 135-145 Final [place] mmol/L [facility] (Lab): [address] [place] [address] Normal Potassium 3.9 mmol/L 3.5-5.2 Final [place] Level mmol/L [facility] (Lab): [address] [place] [address] Normal Chloride 101 mmol/L 98-108 Final [place] Level mmol/L [facility] (Lab): [address] [place] [address] Low Co2 18 mmol/L 21-32 Final [place] mmol/L [facility] (Lab): [address] [place] [address] Normal Anion Gap 19.9 mEq/L 12-20 Final [place] mEq/L [facility] (Lab): [address] [place] [address] Low Calcium 8.5 mg/dL 8.6-10.0 Final [place] Level mg/dL [facility] (Lab): [address] [place] [address] 07/10/2018 Rapid Strep Results Final [place] Group a, [facility] (Lab): [address] [place] [address] 07/10/2018 CBC W/ Auto Normal White Blood 8.5 K/uL 4.0-11.5 Final [place] Diff Count K/uL [facility] (Lab): [address] [place] [address] Normal Red Blood 4.20 M/uL 3.80-5.20 Final [place] Count M/uL [facility] (Lab): [address] [place] [address] Normal Hemoglobin 12.6 g/dL 10.5-15.7 Final [place] g/dL [facility] (Lab): [address] [place] [address] Normal Hematocrit 37.8 % 34.0-50.0 Final [place] % [facility] (Lab): [address] [place] [address] Normal Mean 89.8 fL 78-98 fL Final [place] Corpuscular [facility] Volume [facility] (Lab): [address] [place] [address] Normal Mean 30.0 pg 26.2-33.4 Final [place] Corpuscular pg [facility] Hemoglobin [facility] (Lab): [address] [place] [address] Normal Mean 33.4 g/dL 31.5-36.2 Final [place] Corpuscular g/dL [facility] (Lab): [address] [place] [address] Normal Red Cell 13.2 % 11.5-15.5 Final [place] Distribution % [facility] Width [facility] (Lab): [address] [place] [address] Normal Platelet 215 K/uL 137-338 Final [place] Count K/uL [facility] (Lab): [address] [place] [address] Low Mean 5.7 fL 8.4-11.8 Final [place] Platelet fL [facility] (Lab): [address] [place] [address] Normal Neutrophils 75.9 % 44.4-80.1 Corrected [place] % % [facility] (Lab): [address] [place] [address] Normal Lymphocyte% 14.7 % 10.0-50.0 Final [place] % [facility] (Lab): [address] [place] [address] Normal Norman % 3.9 % 3.6-12.04 Final [place] % [facility] (Lab): [address] [place] [address] Normal Eos % 4.9 % 0.0-5.41 Final [place] % [facility] (Lab): [address] [place] [address] Normal Basophil % 0.5 % 0.0-0.79 Final [place] % [facility] (Lab): [address] [place] [address] 07/10/2018 Differential Normal Neutrophils Incomplete [place] Panel, Blood [facility] (Lab): [address] [place] [address] Normal Band Incomplete [place] [facility] (Lab): [address] [place] [address] Normal Lymphocyte Incomplete [place] [facility] (Lab): [address] [place] [address] Normal Atypical Incomplete [place] Lymph [facility] (Lab): [address] [place] [address] Normal Monocyte Incomplete [place] [facility] (Lab): [address] [place] [address] Normal Eosinophil Incomplete [place] [facility] (Lab): [address] [place] [address] Normal Basophil Incomplete [facility] (Lab): [address] [place] [address] Normal Platelet Incomplete [place] Estimate [facility] (Lab): [address] [place] [address] Normal Platelet Incomplete [place] Morphology [facility] (Lab): [address] [place] [address] Normal Anisocytosis Incomplete [facility] (Lab): [address] [place] [address] 07/10/2018 CMP, Serum High Glucose 119 mg/dL 74-106 Final [place] or Plasma mg/dL [facility] (Lab): [address] [place] [address] Normal Blood Urea 13 mg/dL 6-20 Final [place] Nitrogen mg/dL [facility] (Lab): [address] [place] [address] Low Osmolality 275 280-300 Final [place] Calculated, [facility] (Lab): [address] [place] [address] Normal Creatinine 0.6 mg/dL 0.50-0.90 Final [place] mg/dL [facility] (Lab): [address] [place] [address] Normal Glomerular >60.00 Final [place] Filtration [facility] (Lab): [address] [place] [address] High BUN/creatini 21.7 12-20 Final [place] ne Ratio [facility] (Lab): [address] [place] [address] Normal Sodium Level 137 mmol/L 135-145 Final [place] mmol/L [facility] (Lab): [address] [place] [address] Low Potassium 3.1 mmol/L 3.5-5.2 Final [place] Level mmol/L [facility] (Lab): [address] [place] [address] Normal Chloride 98 mmol/L 98-108 Final [place] Level mmol/L [facility] (Lab): [address] [place] [address] Normal Co2 26 mmol/L 21-32 Final [place] mmol/L [facility] (Lab): [address] [place] [address] Normal Anion Gap 16.1 mEq/L 12-20 Final [place] mEq/L [facility] (Lab): [address] [place] [address] Normal Calcium 8.7 mg/dL 8.6-10.0 Final [place] Level mg/dL [facility] (Lab): [address] [place] [address] Low Total 6.5 g/dL 6.6-8.7 Final [place] Protein g/dL [facility] (Lab): [address] [place] [address] Normal Albumin 3.6 g/dL 3.5-5.2 Final [place] g/dL [facility] (Lab): [address] [place] [address] Normal Globulin 2.9 gm/dL Final [facility] (Lab): [address] [place] [address] Normal A/g Ratio 1.2 >1.0 Final [facility] (Lab): [address] [place] [address] Normal Bilirubin,to 0.4 mg/dL 0.0-1.2 Final [place] girish mg/dL [facility] (Lab): [address] [place] [address] High AST/SGOT 37 U/L 15-32 U/L Final [facility] (Lab): [address] [place] [address] High ALT/SGPT 39 U/L 0-33 U/L Final [facility] (Lab): [address] [place] [address] Normal Alkaline 60 U/L 35-105 [place] Phosphatase, U/L [facility] (Lab): [address] [place] [address] 07/10/2018 Urinalysis, Normal Color, Urine light Final [place] Complete yellow [facility] (Lab): [address] [place] [address] Normal Appearance, clear clear Final [place] Urine [facility] (Lab): [address] [place] [address] Normal Urine negative negative Final [place] Glucose [facility] (Lab): [address] [place] [address] Normal Bilirubin, negative negative Final [place] Urine [facility] (Lab): [address] [place] [address] Normal Ketone, negative negative Final [place] Urine [facility] (Lab): [address] [place] [address] Normal Specific 1.010 1.003-1.0 Final [place],urine [address] [facility] (Lab): [address] [place] [address] Normal Blood Urine negative negative [place] [facility] (Lab): [address] [place] [address] Normal pH,urine 6.000 5-[address] [place] [facility] (Lab): [address] [place] [address] Normal Protein negative negative Final [place] Urine (UA) [facility] (Lab): [address] [place] [address] Normal Urobilinogen normal 0.2-1.0 Final [place] , Urine mg/dL mg/dL [facility] (Lab): [address] [place] [address] Normal Nitrate, negative negative Final [place] Urine [facility] (Lab): [address] [place] [address] Normal Urine negative negative Final [place] Leukocyte [facility] (Lab): [address] [place] [address] Normal RBC, Urine <1 /[hpf] 0-5 Final [place] /[hpf] [facility] (Lab): [address] [place] [address] Normal WBC, Urine <1 /[hpf] 0-5 Final [place] /[hpf] [facility] (Lab): [address] [place] [address] Normal Epithelial =1-5 0-5 Final [place] Cell /[hpf] /[hpf] [facility] (Lab): [address] [place] [address] Normal Bacteria, none none [place] Urine detected detect [facility][hpf] /[facility]hpf] [facility] (Lab): [address] [place] [address] Normal Casts,urine =2-5 /lpf none Final [place] detect [facility] (Lab): [address] [place] [address] Normal Urine no Final [place] Culture [facility] (Lab): [address] [place] [address] 07/10/2018 Streptococcu No [place] s Group a, observation [facility], recorded. [facility] (Lab): [address] [place] [address] 07/10/2018 Legionella Normal Legionella negative negative Final [place] Ag, Urine Urinary [facility] (Lab): [address] [place] [address] 07/07/2018 Urinalysis, Normal Color, Urine colorless Final [place] Complete [facility] (Lab): [address] [place] [address] Normal Appearance, clear clear Final [place] Urine [facility] (Lab): [address] [place] [address] Normal Urine negative negative [place] Glucose [facility] (Lab): [address] [place] [address] Normal Bilirubin, negative negative Final [place] Urine [facility] (Lab): [address] [place] [address] High Ketone, =2 negative Final [place] Urine [facility] (Lab): [address] [place] [address] Normal Specific 1.008 1.003-1.0 Final [place],urine [address] [facility] (Lab): [address] [place] [address] Normal Blood Urine negative negative [place] [facility] (Lab): [address] [place] [address] Normal pH,urine 7.000 5-[address] [place] [facility] (Lab): [address] [place] [address] Normal Protein negative negative [place] Urine (UA) [facility] (Lab): [address] [place] [address] Normal Urobilinogen normal 0.2-1.0 [place] , Urine mg/dL mg/dL [facility] (Lab): [address] [place] [address] Normal Nitrate, negative negative [place] Urine [facility] (Lab): [address] [place] [address] Normal Urine negative negative [place] Leukocyte [facility] (Lab): [address] [place] [address] Normal RBC, Urine <1 /[hpf] 0-5 Final [place] /[hpf] [facility] (Lab): [address] [place] [address] Normal WBC, Urine <1 /[hpf] 0-5 [place] /[hpf] [facility] (Lab): [address] [place] [address] Normal Epithelial =1-5 0-5 [place] Cell /[hpf] /[hpf] [facility] (Lab): [address] [place] [address] Normal Bacteria, none none [place] Urine detected detect Regional /[hpf] /[hpf] [facility] (Lab): [address] [place] [address] Normal Casts,urine none none [place] detected detect [facility] /lpf /lpf [facility] (Lab): [address] [place] [address] Normal Urine no [place] Culture [facility] (Lab): [address] [place] [address] 07/07/2018 CBC W/ Auto Normal White Blood 4.5 K/uL 4.0-11.5 [place] Diff Count K/uL [facility] (Lab): [address] [place] [address] Normal Red Blood 3.90 M/uL 3.80-5.20 [place] Count M/uL [facility] (Lab): [address] [place] [address] Normal Hemoglobin 11.7 g/dL 10.5-15.7 [place] g/dL [facility] (Lab): [address] [place] [address] Normal Hematocrit 35.6 % 34.0-50.0 Final [place] % [facility] (Lab): [address] [place] [address] Normal Mean 91.2 fL 78-98 fL [place] Corpuscular [facility] (Lab): [address] [place] [address] Normal Mean 30.0 pg 26.2-33.4 [place] Corpuscular pg [facility] (Lab): [address] [place] [address] Normal Mean 32.9 g/dL 31.5-36.2 [place] Corpuscular g/dL [facility] (Lab): [address] [place] [address] Normal Red Cell 13.8 % 11.5-15.5 [place] Distribution % [facility] Width [facility] (Lab): [address] [place] [address] Normal Platelet 232 K/uL 137-338 [place] Count K/uL [facility] (Lab): [address] [place] [address] Low Mean 5.3 fL 8.4-11.8 [place] Platelet fL [facility] (Lab): [address] [place] [address] Normal Neutrophils 76.5 % 44.4-80.1 Corrected [place] % % [facility] (Lab): [address] [place] [address] Normal Lymphocyte% 16.4 % 10.0-50.0 Final [place] % [facility] (Lab): [address] [place] [address] Normal Norman % 5.9 % 3.6-12.04 Final [place] % [facility] (Lab): [address] [place] [address] Normal Eos % 0.6 % 0.0-5.41 Final [place] % [facility] (Lab): [address] [place] [address] Normal Basophil % 0.5 % 0.0-0.79 Final [place] % [facility] (Lab): [address] [place] [address] 07/07/2018 Differential Normal Neutrophils [facility] Blood [facility] (Lab): [address] [place] [address] Normal Band [facility] (Lab): [address] [place] [address] Normal Lymphocyte [facility] (Lab): [address] [place] [address] Normal Atypical [facility] Lymph [facility] (Lab): [address] [place] [address] Normal Monocyte [facility] (Lab): [address] [place] [address] Normal Eosinophil [facility] (Lab): [address] [place] [address] Normal Basophil [facility] (Lab): [address] [place] [address] Normal Nucleated [facility] Red Blood [facility] Cell [facility] (Lab): [address] [place] [address] Normal Platelet [facility] Estimate [facility] (Lab): [address] [place] [address] Normal Platelet [facility] Morphology [facility] (Lab): [address] [place] [address] Normal Polychromasi [facility] a [facility] (Lab): [address] [place] [address] Normal Macrocytosis [facility] (Lab): [address] [place] [address] Normal Toxic [facility] Granulation [facility] (Lab): [address] [place] [address] Normal Smudge Cells [facility] (Lab): [address] [place] [address] 07/07/2018 ESR Normal Erythrocyte 16 mm/HR 0.00-20 [place] (Erythrocyte Sedimentation mm/HR Regional Sedimentatio Rate Medical n Rate), [employer] [facility] (Lab): [address] [place] [address] 07/07/2018 BMP, Serum High Glucose 123 mg/dL 74-106 [place] or Plasma mg/dL [facility] (Lab): [address] [place] [address] Low Blood Urea 5 mg/dL 6-20 [place] Nitrogen mg/dL [facility] (Lab): [address] [place] [address] Low Osmolality 276 280-300 [place] Calculated, [facility] Serum [facility] (Lab): [address] [place] [address] Normal Creatinine 0.6 mg/dL 0.50-0.90 [place] mg/dL [facility] (Lab): [address] [place] [address] Normal Glomerular >60.00 [place] Filtration [facility] (Lab): [address] [place] [address] Low BUN/creatini 8.3 12-20 [place] ne Ratio [facility] (Lab): [address] [place] [address] Normal Sodium Level 139 mmol/L 135-145 [place] mmol/L [facility] (Lab): [address] [place] [address] Normal Potassium 3.7 mmol/L 3.5-5.2 [place] Level mmol/L [facility] (Lab): [address] [place] [address] Normal Chloride 104 mmol/L 98-108 [place] Level mmol/L [facility] (Lab): [address] [place] [address] Normal Co2 23 mmol/L 21-32 [place] mmol/L [facility] (Lab): [address] [place] [address] Normal Anion Gap 15.7 mEq/L 12-20 [place] mEq/L [facility] (Lab): [address] [place] [address] Normal Calcium 8.6 mg/dL 8.6-10.0 [place] Level mg/dL [facility] (Lab): [address] [place] [address] 07/06/2018 Hemoglobin + Normal Hemoglobin 11.9 g/dL 10.5-15.7 [place] Hematocrit, g/dL [facility] (Lab): [address] [place] [address] Normal Hematocrit 35.7 % 34.0-50.0 Final [place] % [facility] (Lab): [address] [place] [address] 07/06/2018 Hemoglobin + Normal Hemoglobin 11.5 g/dL 10.5-15.7 [place] Hematocrit, g/dL [facility] (Lab): [address] [place] [address] Normal Hematocrit 35.0 % 34.0-50.0 Final [place] % [facility] (Lab): [address] [place] [address] 07/06/2018 Culture, Results [place] Sputum [facility] (Lab): [address] [place] [address] Bacteria Spt [place] Cult [facility] (Lab): [address] [place] [address] 07/06/2018 Rapid Flu Flu negative In-House (A+B) Results: For Internal Use Only Allergies Code Code System Name Reaction Severity [...] History Smoking Status Former Smoker Past Encounters 07/20/2018 Acute Maxillary Sinusitis; Nausea and Vomiting; Ulcerative Colitis Earle oRth MD: [address] [facility] [address] [facility] [address], [address], [place] [address], Ph. 07/06/2018 Acute Upper Respiratory Infection; Left Sided Ulcerative Colitis Earle Roth MD: [address] [facility] [address] [facility] [address], [address], [place] [address], Ph. 06/26/2018 Left Sided Ulcerative Colitis Earle Roth MD: [address] [facility] [address] [facility] [address], [address], [place] [address], Ph. History of Present Illness Transition Care Management Reported By: Patient HPI: Timing: date of discharge:. Facility: discharged to:. Current Caregivers: self. Functional Status no difficulty following discharge instructions, taking medications as prescribed, following recommended activity level. Follow Up scheduled yes, primary care provider, date: Notes: states has had more rectal bleeding, saw GI yesterday, started on imuran Note: <p>here fro followup, patient had an URI, treated with levaquin IV and po. SHe had evidence of sinusitis, ct chest was negative for pneumonia. WBC was normal. Chemistries were nromal. [facility].</p><p>
</p><p>SInce dsicharge more rectal bleeding. Still with cough, no fevers. Has had persistant cough, no productive phlegm.</p>

Review of Systems: ROS as noted in the HPI Review of Systems General Adult ROS Reported By: Patient Constitutional: Constitutional: no fever, no night sweats, no significant weight gain, no exercise intolerance Cardiovascular: Cardiovascular: no chest pain, no arm pain on exertion, no shortness of breath when walking, no shortness of breath when lying down, no palpitations, no known heart murmur Gastrointestinal: Gastrointestinal: no abdominal pain, no vomiting, normal appetite, not vomiting blood, frequent diarrhea Genitourinary: Genitourinary: no incontinence, no difficulty urinating, no hematuria, no increased frequency Musculoskeletal: Musculoskeletal: no muscle aches, no muscle weakness, no arthralgias/joint pain, no back pain, no swelling in the extremities Integumentary: Skin: no abnormal mole, no jaundice, no rashes Neurologic: Neurologic: no loss of consciousness, no weakness, no numbness, no seizures, no dizziness, no headaches Hematologic/Lymphatic: Hematologic/Lymphatic no swollen glands, no bruising Physical Exam General Adult Exam - Female Reported By: Patient Constitutional: General Appearance: healthy-appearing. Level of Distress: NAD. Ambulation: ambulating normally Psychiatric: Insight: good judgement. Mental Status: active and alert, normal mood, normal affect. Orientation: to time, to place, to person. Memory: recent memory normal Head: Head: normocephalic Eyes: Pupils: PERRLA. EOM: EOMI. Sclerae: non-icteric ENMT: Oropharynx: moist mucous membranes Neck: Neck: supple, FROM. Thyroid: no enlargement, non-tender, no nodules Lungs: [...]
[2018-07-23] MEDS ORDERED: ONDANSETRON 4 MG/2 ML VIAL ONE ×2 (15:55→20:21)
[2018-07-23] MEDS ORDERED: MORPHINE 4 MG/ML SYR ONE ×2 (15:55→20:21)
[2018-07-23] MEDS ORDERED: NA CHLORIDE 0.9% 1,000 ML ONE ×2 (15:55→18:37)
[2018-07-23 17:34] LABS: Absolute Lymphocytes (CBC) 1.2 K/uL (0.7-4.9); Absolute Monocytes 1.1 K/uL (0.1-1.3); Absolute Neutrophil 5.1 K/uL (1.8-8.0); Basophils % 0.4 % (0-1.3); Hematocrit 35.6 % (36.0-45.0); Lymphocytes % 15.4 % (15.3-44.8); MPV 7.2 fL (7.6-11.3); Monocytes % 14.3 % (3.3-12.3); RBC Red Blood Cell Count 4.09 M/uL (3.86-4.86)
[2018-07-23 17:46] LABS: BUN Blood Urea Nitrogen 9 mg/dL (7-18); Bicarbonate 30 mmol/L (21-32); Glucose Level 89 mg/dL (74-106); Potassium 3.2 mmol/L (3.5-5.1); Sodium Level 138 mmol/L (136-145)
--- NOTE | 2018-07-23 19:08 | RAD REPORT ---
EXAM DESCRIPTION: CTAbdomen Pelvis W Contrast - 07/23/2018 7:00 pm CLINICAL HISTORY: Abdominal pain. ABD PAIN COMPARISON: Abdomen Pelvis W Contrast dated 05/30/2018 TECHNIQUE: Biphasic CT imaging of the abdomen and pelvis was performed with 100 ml non-ionic IV cont rast. All CT scans are performed using dose optimization technique as appropriate and may include automated exposure control or mA/KV adjustment according to patient size. FINDINGS: The lung bases are clear. The liver, spleen, pancreas, adrenal glands and kidneys are within normal limits. Small sub centimete r benign hepatic cyst. No bowel obstruction, free air, free fluid or abscess. Mild inflammatory changes are seen involving the majority of the colon. This is compatible with colitis. No pneumatosis coli seen. The appendix is not identified as a discrete structure, however, no secondary findings of appendicitis are identifie d. No evidence of significant lymphadenopathy. No suspicious bony findings. IMPRESSION: Mild pancolitis is present.
[2018-07-23] MEDS ORDERED: CIPROFLOXACIN 400mg IV 400 MG/200 ML BAG IV ONE (19:31)
[2018-07-23] MEDS ORDERED: METRONIDAZOLE 500mg IVPB 500 MG/100 ML BAG IV ONE (19:31)
[2018-07-23] MEDS ORDERED: NS KCL 20MEQ 1,000 ML IV ONE (19:32)
[2018-07-23] MEDS ORDERED: METHYLPREDNISOLONE 125 MG INJ ONE (19:32)
--- NOTE | 2018-07-23 19:32 | EDPHYS ---
Physician Documentation [facility] Name: Yaneli Wright Age: 37 yrs Sex: Female : 1980 Arrival Date: 07/23/2018 Time: 14:11 Bed 6 Private MD: Keila DEVLIN ED Physician Emiliano Morales HPI: 07/23 15:53 This 37 yrs old Unknown Female presents to ER via Ambulatory with complaints of U/C kb FLAREUP -SENT BY 15:55 The patient presents with abdominal pain in the lower abdomen. Onset: The kb symptoms/episode began/occurred 4 month(s) ago, and became worse 1 week(s) ago. The symptoms do not radiate. Associated signs and symptoms: Pertinent positives: blood in stools, diarrhea, fever, nausea, vomiting. The symptoms are described as constant, sharp. Modifying factors: The symptoms are alleviated by nothing, the symptoms are aggravated by movement, pressure. Severity of pain: At its worst the pain was moderate severe in the emergency department the pain is unchanged. The patient has experienced similar episodes in the past. The patient has been recently seen by a physician: the patient's primary care provider, with similar presenting complaints, and was sent to the [facility] Emergency Department for further evaluation. Pt reports n/v/d, blood in stool, lower abd pain since April. States she has been seen by PCP and Dr Cid. Her PCP spoke to Dr Cid today and was told to send her to ER to have her admitted so he could see her. Last saw Palak in office last week and was scheduled for upper GI on Monday. States she has also been running fever (102.5TMAX) for the past 5 days. Was recently started on Remicade (has had 2 doses) and another medication for UC with no relief. . 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 - Social history:: Smoking status: Patient/guardian denies using tobacco. - Ebola Screening: : No symptoms or risks identified at this time. ROS: 15:54 ENT: Negative for injury, pain, and discharge, Neck: Negative for injury, pain, and kb swelling, Cardiovascular: Negative for chest pain, palpitations, and edema, Respiratory: Negative for shortness of breath, cough, wheezing, and pleuritic chest pain, Back: Negative for injury and pain, : Negative for injury, bleeding, discharge, and swelling, MS/Extremity: Negative for injury and deformity, Skin: Negative for injury, rash, and discoloration, Neuro: Negative for headache, weakness, numbness, tingling, and seizure. 15:54 Constitutional: Positive for fever, Negative for body aches, chills, fatigue, malaise, poor PO intake, weight loss. 15:54 Abdomen/GI: Positive for abdominal pain, nausea, vomiting, and diarrhea, rectal bleeding. Exam: 15:54 Constitutional: This is a well developed, well nourished patient who is awake, alert, kb and in no acute distress. Head/Face: Normocephalic, atraumatic. Chest/axilla: Normal chest wall appearance and motion. Nontender with no deformity. No lesions are appreciated. Cardiovascular: Regular rate and rhythm with a normal S1 and S2. No gallops, murmurs, or rubs. Normal PMI, no JVD. No pulse deficits. Respiratory: Lungs have equal breath sounds bilaterally, clear to auscultation and percussion. No rales, rhonchi or wheezes noted. No increased work of breathing, no retractions or nasal flaring. Skin: Warm, dry with normal turgor. Normal color with no rashes, no lesions, and no evidence of cellulitis. MS/ Extremity: Pulses equal, no cyanosis. Neurovascular intact. Full, normal range of motion. Neuro: Awake and alert, GCS 15, oriented to person, place, time, and situation. Cranial nerves II-XII grossly intact. Motor strength 5/5 in all extremities. Sensory grossly intact. Cerebellar exam normal. Normal gait. 15:54 Abdomen/GI: Inspection: abdomen appears normal, Bowel sounds: normal, in all quadrants, Palpation: soft, in all quadrants, severe abdominal tenderness, in the right lower quadrant and left lower quadrant. Vital Signs: 14:24 BP 123 / 84; Pulse 124; Resp 18 S; Temp 97.9(TE); Pulse Ox 97% on R/A; Weight 102.06 kg aa5 (R); Height 5 ft. 5 in. (165.10 cm) (R); Pain 10/10; 15:59 BP 122 / 80 Supine; Pulse 92; Resp 17; Pulse Ox 98% ; sg 16:00 BP 97 / 68 Sitting; Pulse 98; sg 16:00 BP 90 / 60 Standing; Pulse 115; Pulse Ox 98% on R/A; sg 17:30 BP 93 / 68; Pulse 97; Resp 16 S; Pulse Ox 100% on R/A; iw 19:15 BP 98 / 53; Pulse 98; Resp 18; Temp 99.6(O); Pulse Ox 99% on R/A; ca1 20:30 BP 111 / 67; Pulse 98; Resp 18; Pulse Ox 97% on R/A; ca1 14:24 Body Mass Index 37.44 (102.06 kg, 165.10 cm) aa5 MDM: 15:22 Patient medically screened. kb 15:54 Data reviewed: vital signs, nurses notes. Data interpreted: Pulse oximetry: on room air kb is 97 %. Interpretation: normal. 19:11 Counseling: I had a detailed discussion with the patient and/or guardian regarding: the kb historical points, exam findings, and any diagnostic results supporting the discharge/admit diagnosis, lab results, radiology results, the need for further work-up and treatment in the hospital. 19:30 Physician consultation: Jamie Mcgovern MD was contacted at 19:30, regarding admission, kb to the medical/surgical unit. patient's condition, and will see patient in ED, shortly. 07/23 15:29 Order name: Basic Metabolic Panel; Complete Time: 17:50 kb 07/23 15:29 Order name: CBC with Diff; Complete Time: 17:44 kb 07/23 15:29 Order name: Blood Culture Adult (2) kb 07/23 15:29 Order name: Type And Screen; Complete Time: 18:14 kb 07/23 15:39 Order name: Lactate; Complete Time: 17:53 kb 07/23 15:39 Order name: Procalcitonin; Complete Time: 18:14 kb 07/23 15:39 Order name: CT Abd/Pelvis - W/Contrast; Complete Time: 19:10 kb 07/23 18:18 Order name: ABO/RH no charge; Complete Time: 18:21 EDMS 07/23 18:47 Order name: Urine Dipstick--Ancillary (enter results); Complete Time: 21:02 eb 07/23 15:29 Order name: IV Saline Lock; Complete Time: 16:17 kb 07/23 15:29 Order name: Labs collected and sent; Complete Time: 18:16 kb 07/23 15:29 Order name: Urine Dipstick-Ancillary (obtain specimen); Complete Time: 18:43 kb 07/23 15:29 Order name: Orthostatics; Complete Time: 18:43 kb 07/23 19:34 Order name: CONS Physician Consult EDMS Administered Medications: 16:04 Drug: Zofran 4 mg Route: IVP; Site: right antecubital; ss 19:00 Follow up: Response: No adverse reaction iw 16:07 Drug: NS 0.9% 1000 ml Route: IV; Rate: 1000 ml; Site: right antecubital; ss 21:14 Follow up: Response: No adverse reaction; IV Status: Completed infusion ca1 16:07 Drug: morphine 4 mg Route: IVP; Site: right antecubital; ss 18:59 Follow up: Response: No adverse reaction; Pain is decreased iw 18:40 Drug: NS 0.9% 1000 ml Route: IV; Rate: 1000 ml; Site: left antecubital; sg 21:15 Follow up: Response: No adverse reaction; IV Status: Completed infusion ca1 19:25 Drug: SOLU-Medrol 125 mg Route: IVP; Site: left antecubital; ca1 21:16 Follow up: Response: No adverse reaction ca1 19:26 Drug: NS 0.9% with KCl 20 mEq/L 1000 ml Route: IV; Rate: 125 ml/hr; Site: left ca1 antecubital; 21:15 Follow up: IV Status: Infusion continued upon admission ca1 19:27 Drug: Flagyl 500 mg Volume: 100 ml; Route: IVPB; Rate: 200 ml/hr; Infused Over: 30 ca1 mins; Site: left antecubital; 21:15 Follow up: Response: No adverse reaction; IV Status: Completed infusion ca1 20:12 Drug: morphine 2 mg Route: IVP; Site: left antecubital; ca1 21:16 Follow up: Response: No adverse reaction; Pain is decreased ca1 20:21 Drug: Zofran 4 mg Route: IVP; Site: left antecubital; ca1 21:16 Follow up: Response: No adverse reaction; Nausea is decreased ca1 20:40 Drug: Cipro 400 mg Volume: 200 ml; Route: IVPB; Infused Over: 60 mins; Site: left ca1 antecubital; 21:15 Follow up: IV Status: Infusion continued upon admission ca1 Disposition: 07/23/18 19:32 Hospitalization ordered by Jamie Mcgovern for Inpatient Admission. Preliminary diagnosis is Pancolitis. - Bed requested for Telemetry/MedSurg (Inpatient). - Status is Inpatient Admission. ca1 - Condition is Stable. - Problem is an acute exacerbation. - Symptoms are unchanged. UTI on Admission? No Addendum: 07/25/2018 07:20 Co-signature as Attending Physician, Emiliano Morales MD. r n Signatures: Dispatcher [employer] EDMS Savita Garcia, SWING RIDE OPERATOR-C SWING RIDE OPERATOR-Ckb Yolie Mcgee, RN RN Patrick Celis, RN RN sg Emiliano Morales MD MD rn Calderon, Audri RN RN aa5 Glo Ramos RN RN ss Lena Hernandez RN RN lp1 Shlebie Meelndez RN RN ca1 Isabel Mccormack RN iw Corrections: (The following items were deleted from the chart) 07/23 20:02 19:32 Hospitalization Ordered by Jamie Mcgovern MD for Inpatient Admission. Preliminary dw diagnosis is Pancolitis. Bed requested for Telemetry/MedSurg (Inpatient). Status is Inpatient Admission. Condition is Stable. Problem is an acute exacerbation. Symptoms are unchanged. UTI on Admission? No. kb 21:17 20:02 07/23/2018 19:32 Hospitalization Ordered by Jamie Mcgovern MD for Inpatient ca1 Admission. Preliminary diagnosis is Pancolitis. Bed requested for Telemetry/MedSurg (Inpatient). Status is Inpatient Admission. Condition is Stable. Problem is an acute exacerbation. Symptoms are unchanged. UTI on Admission? No. dw
--- NOTE | 2018-07-23 19:32 | ER ---
Nurse's Notes [facility] Name: Yaneli Wright Age: 37 yrs Sex: Female : 1980 Arrival Date: 07/23/2018 Time: 14:11 Bed 6 Private MD: Keila DEVLIN Diagnosis: Pancolitis Presentation: 07/23 14:22 Presenting complaint: Patient states: lower abd pain x 6 months ago. Pt states "Dr. andie Devlin sent me here to be admitted for a flare up of ulcerative colitis". Transition of care: patient was not received from another setting of care. Onset of symptoms was 2018. Risk Assessment: Do you want to hurt yourself or someone else? Patient reports no desire to harm self or others. Initial Sepsis Screen: Does the patient meet any 2 criteria? No. Patient's initial sepsis screen is negative. Does the patient have a suspected source of infection? No. Patient's initial sepsis screen is negative. Care prior to arrival: None. 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 - Social history:: Smoking status: Patient/guardian denies using tobacco. - Ebola Screening: : No symptoms or risks identified at this time. Screenin:43 Abuse screen: Denies threats or abuse. Denies injuries from another. Nutritional iw screening: No deficits noted. Tuberculosis screening: No symptoms or risk factors identified. Fall Risk IV access (20 points). Assessment: 16:20 General: Appears in no apparent distress. comfortable, Behavior is calm, cooperative. iw Pain: Complains of pain in left lower quadrant and right lower quadrant Pain currently is 9 out of 10 on a pain scale. Pain began 4 months ago. Neuro: Level of Consciousness is awake, alert, obeys commands, Moves all extremities. Full function. Cardiovascular: Patient's skin is warm and dry. Respiratory: Respiratory effort is even, unlabored, Respiratory pattern is regular. GI: Abdomen is non-distended, Abd is soft X 4 quads Reports bloody stool, nausea. Derm: Skin is intact, is healthy with good turgor. Musculoskeletal: Range of motion: intact in all extremities. 17:43 Reassessment: Patient appears in no apparent distress at this time. Patient and/or iw family updated on plan of care and expected duration. Pain level reassessed. Patient is alert, oriented x 3, equal unlabored respirations, skin warm/dry/pink. 18:44 Reassessment: Patient appears in no apparent distress at this time. Patient and/or iw family updated on plan of care and expected duration. Pain level reassessed. Patient is alert, oriented x 3, equal unlabored respirations, skin warm/dry/pink. 2nd liter bolus started by SOFÍA Nguyen. 19:10 Reassessment:. ca1 19:10 Reassessment: Patient appears in no apparent distress at this time. Patient is alert, ca1 oriented x 3, equal unlabored respirations, skin warm/dry/pink. Pain: Complains of pain in abdomen Pain currently is 8 out of 10 on a pain scale. GI: Reports. GI: Reports nausea. 20:10 Reassessment: Verbal order per Dr. Madrigal to administer Morphine 2mg IV. lp1 20:15 Reassessment: Verbal Order from Dr. Mcgovern, Zofran 4mg IV. ca1 21:00 Reassessment: Patient appears in no apparent distress at this time. Patient and/or ca1 family updated on plan of care and expected duration. Pain level reassessed. Patient is alert, oriented x 3, equal unlabored respirations, skin warm/dry/pink. Patient states feeling better. Vital Signs: 14:24 BP 123 / 84; Pulse 124; Resp 18 S; Temp 97.9(TE); Pulse Ox 97% on R/A; Weight 102.06 kg aa5 (R); Height 5 ft. 5 in. (165.10 cm) (R); Pain 10/10; 15:59 BP 122 / 80 Supine; Pulse 92; Resp 17; Pulse Ox 98% ; sg 16:00 BP 97 / 68 Sitting; Pulse 98; sg 16:00 BP 90 / 60 Standing; Pulse 115; Pulse Ox 98% on R/A; sg 17:30 BP 93 / 68; Pulse 97; Resp 16 S; Pulse Ox 100% on R/A; iw 19:15 BP 98 / 53; Pulse 98; Resp 18; Temp 99.6(O); Pulse Ox 99% on R/A; ca1 20:30 BP 111 / 67; Pulse 98; Resp 18; Pulse Ox 97% on R/A; ca1 14:24 Body Mass Index 37.44 (102.06 kg, 165.10 cm) aa5 ED Course: 14:11 Patient arrived in ED. sb2 14:12 Keila DEVLIN is Private Physician. sb2 14:22 Arm band placed on. aa5 14:23 Triage completed. aa5 15:22 [facility]ita Garcia [facility]-C [facility]. kb 15:22 Emiliano Morales MD is Attending Physician. kb 15:29 Isabel Mccormack, SOFÍA is Primary Nurse. iw 15:43 Oral contrast given. vm2 16:00 Inserted saline lock: 24 gauge in right antecubital area, using aseptic technique. ss Blood collected. 17:05 Missed attempt(s): 24 gauge in right wrist. Bleeding controlled, band aid applied, dh3 catheter tip intact. 17:18 Radiology exam delayed due to lab results not completed at this time. (BUN/Creatinine). nj 17:51 Accessed peripheral vein via ultrasound, utilizing dynamic ultrasound technique using la1 18G Sureflo IV catheter Good blood return. 18:[address] vm2 18:57 CT completed. Patient tolerated procedure well. Patient moved back from CT. vm2 19:01 CT Abd/Pelvis - W/Contrast In Process Unspecified. EDMS 19:15 Patient has correct armband on for positive identification. Placed in gown. Bed in low ca1 position. Call light in reach. Side rails up X 1. 19:31 Jamie Mcgovern MD is Hospitalizing Provider. kb 20:30 24g to RAC dc'd. ca1 20:54 No provider procedures requiring assistance completed. Patient admitted, IV remains in ca1 place. Administered Medications: 16:04 Drug: Zofran 4 mg Route: IVP; Site: right antecubital; ss 19:00 Follow up: Response: No adverse reaction iw 16:07 Drug: NS 0.9% 1000 ml Route: IV; Rate: 1000 ml; Site: right antecubital; ss 21:14 Follow up: Response: No adverse reaction; IV Status: Completed infusion ca1 16:07 Drug: morphine 4 mg Route: IVP; Site: right antecubital; ss 18:59 Follow up: Response: No adverse reaction; Pain is decreased iw 18:40 Drug: NS 0.9% 1000 ml Route: IV; Rate: 1000 ml; Site: left antecubital; sg 21:15 Follow up: Response: No adverse reaction; IV Status: Completed infusion ca1 19:25 Drug: SOLU-Medrol 125 mg Route: IVP; Site: left antecubital; ca1 21:16 Follow up: Response: No adverse reaction ca1 19:26 Drug: NS 0.9% with KCl 20 mEq/L 1000 ml Route: IV; Rate: 125 ml/hr; Site: left ca1 antecubital; 21:15 Follow up: IV Status: Infusion continued upon admission ca1 19:27 Drug: Flagyl 500 mg Volume: 100 ml; Route: IVPB; Rate: 200 ml/hr; Infused Over: 30 ca1 mins; Site: left antecubital; 21:15 Follow up: Response: No adverse reaction; IV Status: Completed infusion ca1 20:12 Drug: morphine 2 mg Route: IVP; Site: left antecubital; ca1 21:16 Follow up: Response: No adverse reaction; Pain is decreased ca1 20:21 Drug: Zofran 4 mg Route: IVP; Site: left antecubital; ca1 21:16 Follow up: Response: No adverse reaction; Nausea is decreased ca1 20:40 Drug: Cipro 400 mg Volume: 200 ml; Route: IVPB; Infused Over: 60 mins; Site: left ca1 antecubital; 21:15 Follow up: IV Status: Infusion continued upon admission ca1 Outcome: 19:32 Decision to Hospitalize by Provider. kb 20:30 Admitted to Tele accompanied by tech, via wheelchair, room 411, with chart, Report ca1 called to Kenya Medina RN 21:05 Condition: stable ca1 21:05 Instructed on the need for admit, Demonstrated understanding of instructions. 21:17 Patient left the ED. ca1 Signatures: Dispatcher [employer] Savita Alex, TOOL CLERK-C TOOL CLERK-Patrick Fenton RN RN sg Isabel Mccormack RN RN iw Christie Hair RN RN aa5 Glo Ramos RN RN ss Lena Hernandez RN RN lp1 Dave Feliciano RN RN la1 Bucky Ramos Victoria 2 Niya Riggs dh3 Ciera Porras sb2 Shelbie Melendez, RN RN ca1
--- NOTE | 2018-07-23 20:25 | P.HP ---
Certification for Inpatient Patient admitted to: Inpatient With expected LOS: >2 Midnights Practitioner: I am a practitioner with admitting privileges, knowledge of patient current condition, hospital course, and medical plan of care. Services: Services provided to patient in accordance with Admission requirements found in Title 42 Section 412.3 of the Code of Federal Regulations Patient History Date of Service: 07/23/18 Reason for admission: ulcerative colitis flare up History of Present Illness: Angelica morales is a 37 years old woman with history of ulcerative colitis, admitted a couple of times this year due to flare up, last time in 06/03, since so, she has been with intermitent episodes of abdominal pain, bloody stools and fever, her PCP Dr Roth, has started her on Remicade, already to doses, she supouse to recive the 3rd dose tomorrow but it was delayed since the patient had recently acute bronchitis. Today she was sent to ER for further evaluation due to a new bloody stool episode, associated with abdominal pain, nausea, vomiting and fever. In ER her temp was 97.9F, lab work shows normal WBC count but elevated procalcitonin. CT abd/pelvis consistent with pancolitis. Allergies No Known Allergies Allergy (Unverified 05/29/18 21:39) Home medications list reviewed: Yes Home Medications: Citalopram [Celexa*] 10 mg PO DAILY 05/29/18 Ciprofloxacin HCl [Cipro 500 MG Tablet] 500 mg PO BID #14 tab 06/01/18 Prednisone [Deltasone] 40 mg PO SEECOM #15 tablet 06/01/18 metroNIDAZOLE [Flagyl] 500 mg PO Q8H #21 tablet 06/01/18 - Past Medical/Surgical History Diabetic: No -: Ulcerative colitis -: sectionx2 - Family History Father -: Heart disease Notes: angioplasty Mother -: Other (see notes) Notes: Diverticulitis - Social History Smoking Status: Former smoker Alcohol use: No CD- Drugs: No Caffeine use: Yes Place of Residence: Home Review of Systems 10-point ROS is otherwise unremarkable Physical Examination - Physical Exam General: Alert, In no apparent distress HEENT: Atraumatic, PERRLA, Mucous membr. moist/pink, EOMI, Sclerae nonicteric Neck: Supple, 2+ carotid pulse no bruit, No LAD, Without JVD or thyroid abnormality Respiratory: Clear to auscultation bilaterally, Normal air movement Cardiovascular: Regular rate/rhythm, Normal S1 S2 Gastrointestinal: Tenderness (diffuse tenderness to palpation) Musculoskeletal: No tenderness Integumentary: No rashes Neurological: Normal speech, Normal strength at 5/5 x4 extr, Normal tone, Normal affect Lymphatics: No axilla or inguinal lymphadenopathy - Studies Laboratory Data (last 24 hrs) 07/23/18 17:15: WBC 7.7, Hgb 12.0, Hct 35.6 L, Plt Count 333 07/23/18 17:15: Sodium 138, Potassium 3.2 L, BUN 9, Creatinine 0.72, Glucose 89 Assessment and Plan - Problems (Diagnosis) (1) Ulcerative pancolitis Current Visit: Yes Status: Acute (2) Hematochezia Onset Date: 05/30/18 Current Visit: No Status: Acute (3) Nausea & vomiting Onset Date: 05/30/18 Current Visit: No Status: Acute Qualifiers: Vomiting type: unspecified Vomiting Intractability: non-intractable Qualified Code(s): R11.2 - Nausea with vomiting, unspecified - Plan The patient will be admitted to the hospital due to ulcerative colitis flare up. Will continue with IV steroids, IV antibiotics, IV fluids, keep her NPO, Dr Cid was contacted by Dr Morales. Dr Cid will see the patient in the morning. Continue symptomatic medication. - Advance Directives Does patient have a Living Will: No Does patient have a Durable POA for Healthcare: No - Code Status/Comfort Care Code Status Assessed: Yes Code Status: Full Code
[2018-07-23 20:58] LABS: Urine Blood NEGATIVE (NEG); Urine Glucose NEGATIVE (NEG); Urine Protein NEGATIVE (NEG); Urine Specific Gravity 1.005 (1.005-1.030); Urine pH 5.5 (5.0-7.0)
[2018-07-23] MEDS: CIPROFLOXACIN 400mg IV 400 MG/200 ML BAG IV SCH (21:36)
[2018-07-23] MEDS: NA CHLORIDE 0.9% 1,000 ML IV SCH (21:36)
[2018-07-23] MEDS ORDERED: MORPHINE 2 MG/ML SYR IV PRN (21:36)
[2018-07-23] MEDS ORDERED: ACETAMINOPHEN 500 MG TAB PO PRN (21:36)
[2018-07-23] MEDS: METHYLPREDNISOLONE 125 MG INJ IV SCH (23:55)
[2018-07-24] MEDS: METRONIDAZOLE 500mg IVPB 500 MG/100 ML BAG IV SCH ×3 (00:07→16:10)
[2018-07-24] MEDS ORDERED: MORPHINE 4 MG/ML SYR ONE ×2 (00:16→04:41)
[2018-07-24 04:24] LABS: Absolute Lymphocytes (CBC) 0.4 K/uL (0.7-4.9); Absolute Monocytes 0.1 K/uL (0.1-1.3); Absolute Neutrophil 5.5 K/uL (1.8-8.0); Basophils % 0.2 % (0-1.3); Eosinophils % 0.1 % (0-4.4); Hematocrit 30.5 % (36.0-45.0); Lymphocytes % 7.1 % (15.3-44.8); MPV 6.9 fL (7.6-11.3); Monocytes % 2.2 % (3.3-12.3); RBC Red Blood Cell Count 3.47 M/uL (3.86-4.86)
[2018-07-24 04:48] LABS: BUN Blood Urea Nitrogen 4 mg/dL (7-18); Bicarbonate 24 mmol/L (21-32); Glucose Level 144 mg/dL (74-106); Magnesium 2.2 mg/dL (1.8-2.4); Potassium 3.7 mmol/L (3.5-5.1); Sodium Level 142 mmol/L (136-145)
[2018-07-24 05:00] LABS: Blood Morphology Comment NOT SEEN (NOT SEEN); Platelet Estimate ADEQ; Toxic Granulation 2+; Urine White Blood Cell Casts OK
[2018-07-24] MEDS: ONDANSETRON 4 MG/2 ML VIAL IV PRN ×2 (05:24→23:53)
[2018-07-24] MEDS: METHYLPREDNISOLONE 125 MG INJ IV SCH ×4 (05:24→23:55)
[2018-07-24] MEDS: NA CHLORIDE 0.9% 1,000 ML IV SCH ×2 (05:24→17:36)
[2018-07-24] MEDS ORDERED: KCL 20 MEQ/100 mL IVPB 20 MEQ/100 ML BAG IV SCH (06:00)
[2018-07-24] MEDS: CIPROFLOXACIN 400mg IV 400 MG/200 ML BAG IV SCH ×2 (09:44→22:02)
[2018-07-24] MEDS: MORPHINE 4 MG/ML SYR IV PRN ×3 (09:44→23:54)
--- NOTE | 2018-07-24 12:03 | RAD REPORT ---
EXAM DESCRIPTION: US - Abdomen Exam Complete - 07/24/2018 11:42 am CLINICAL HISTORY: Abdominal pain COMPARISON: July 23, 2018 cat scan FINDINGS: The liver has a normal echotexture. A gallstone is not seen. The gallbladder wall is not thickened. The biliary tree is normal caliber. The pancreas appears normal in size and echotexture. The right kidney measures 10 centimeters with a normal echotexture. The left kidney measures 10 centimeters with a normal echotexture. The spleen measures 12 centimeters. The abdominal aorta and inferior vena cava appear unremarkable IMPRESSION: Unremarkable exam
--- NOTE | 2018-07-24 14:17 | P.PN ---
Subjective Date of Service: 07/24/18 Chief Complaint: ulcerative colitis flare up Patient seen and examined at bedside with RN. Chart reviewed. Case discussed with GI. No complaints to offer overnight. Currently states that her diarrhea has improved much more than before. Abdominal pain has resolved at this time. Denies having nausea vomiting as well Review of Systems 10-point ROS is otherwise unremarkable Physical Examination - Vital Signs Temperature: 97.1 F Blood Pressure: 105/60 Pulse: 90 Respirations: 18 Pulse Ox (%): 95 - Physical Exam General: Alert, In no apparent distress HEENT: Atraumatic, PERRLA, EOMI Neck: Supple, JVD not distended Respiratory: Clear to auscultation bilaterally, Normal air movement Cardiovascular: Regular rate/rhythm, Normal S1 S2 Gastrointestinal: Normal bowel sounds, No tenderness Musculoskeletal: No tenderness Integumentary: No rashes Neurological: Normal speech, Normal tone, Normal affect Lymphatics: No axilla or inguinal lymphadenopathy - Studies Laboratory Data (last 24 hrs) 07/23/18 17:15: WBC 7.7, Hgb 12.0, Hct 35.6 L, Plt Count 333 07/23/18 17:15: Sodium 138, Potassium 3.2 L, BUN 9, Creatinine 0.72, Glucose 89 Medications List Reviewed: Yes Assessment And Plan - Current Problems (Diagnosis) (1) Ulcerative pancolitis Onset Date: 07/24/18 Current Visit: Yes Status: Acute Plan: Acute ulcerative pancolitis with history of ulcerative colitis -nausea vomiting and diarrhea initially. -started on IV steroids at this time -currently on IV fluids and clear liquid diet. -GI consulted. Awaiting recommendations at this time -restarted on home medication as well. -improvement in nausea vomiting and diarrhea today. (2) Hematochezia Onset Date: 05/30/18 Current Visit: No Status: Resolved Plan: Resolved at this time. (3) Nausea & vomiting Onset Date: 05/30/18 Current Visit: No Status: Resolved Plan: Resolved at this time. Qualifiers: Vomiting type: unspecified Vomiting Intractability: non-intractable Qualified Code(s): R11.2 - Nausea with vomiting, unspecified - Plan Pending clinical improvement at this time. Continue on IV steroids at this time. GI recommendations are pending as well. Will follow up with GI and switched over to oral steroids on discharge. Anticipate discharge in next 24- 48 hr and continue to improve Discharge Plan: Home Plan to discharge in: 48 Hours - Code Status/Comfort Care Code Status Assessed: Yes Critical Care: No
--- NOTE | 2018-07-24 15:00 | RAD REPORT ---
EXAM DESCRIPTION: RAD - Small Bowel Series - 07/24/2018 2:11 pm CLINICAL HISTORY: Abdominal pain/ COMPARISON: None. FINDINGS: Contrast enters the colon by approximately 1 hour 30 minutes The mucosal folds of the small bowel appear normal. No permanent filling defects, obstructing or constricting lesions are seen. The small bowel caliber is normal. IMPRESSION: Unremarkable small bowel series.
[2018-07-25] MEDS: METRONIDAZOLE 500mg IVPB 500 MG/100 ML BAG IV SCH ×3 (00:05→17:08)
[2018-07-25] MEDS: NA CHLORIDE 0.9% 1,000 ML IV SCH ×3 (01:48→09:46)
[2018-07-25 05:37] LABS: BUN Blood Urea Nitrogen 4 mg/dL (7-18); Bicarbonate 26 mmol/L (21-32); Glucose Level 137 mg/dL (74-106); Potassium 3.3 mmol/L (3.5-5.1); Sodium Level 145 mmol/L (136-145)
[2018-07-25] MEDS: METHYLPREDNISOLONE 125 MG INJ IV SCH ×3 (05:41→17:09)
[2018-07-25] MEDS ORDERED: POTASSIUM 25 MEQ EFFERV TAB PO ONE (07:42)
[2018-07-25] MEDS: CITALOPRAM 10 MG TABLET PO SCH (09:34)
[2018-07-25] MEDS: AZATHIOPRINE 50 MG TABLET PO SCH (09:35)
[2018-07-25] MEDS: CIPROFLOXACIN 400mg IV 400 MG/200 ML BAG IV SCH ×2 (09:44→20:41)
[2018-07-25] MEDS: ONDANSETRON 4 MG/2 ML VIAL IV PRN (12:24)
[2018-07-25] MEDS: MORPHINE 4 MG/ML SYR IV PRN (12:24)
--- NOTE | 2018-07-25 15:05 | P.PN ---
Subjective Date of Service: 07/25/18 Primary Care Provider: LEROY-Dr. Cid Chief Complaint: ulcerative colitis flare up Subjective: Other (Patient continues to improve) Physical Examination - Vital Signs Temperature: 98.4 F Blood Pressure: 123/74 Pulse: 68 Respirations: 18 Pulse Ox (%): 96 - Physical Exam General: Alert, In no apparent distress, Oriented x3, Cooperative HEENT: Atraumatic Neck: Supple Respiratory: Clear to auscultation bilaterally, Normal air movement Cardiovascular: Normal pulses, Regular rate/rhythm Gastrointestinal: Normal bowel sounds, Soft and benign, No masses, No rebound, No guarding, Tenderness (Less pain to the abdomen) - Studies Medications List Reviewed: Yes Assessment & Plan Discharge Plan: Home Plan to discharge in: 48 Hours Physician Review Additional Text: Impression: Ulcerative pancolitis with history of ulcerative colitis Nausea and vomiting Hematochezia Plan: Case discussed with GI. Will continue with IV steroids and antibiotic therapy. Will advance diet to full liquid. Encourage incentive spirometer. Encourage ambulation. Will slowly advance diet. Anticipate discharge within the next 48 hr. Time Spent Managing Pts Care (In Minutes): 55
[2018-07-25 15:26] LABS: BUN Blood Urea Nitrogen 4 mg/dL (7-18); Bicarbonate 27 mmol/L (21-32); Glucose Level 116 mg/dL (74-106); Potassium 3.8 mmol/L (3.5-5.1); Sodium Level 144 mmol/L (136-145)
[2018-07-25] MEDS ORDERED: POTASSIUM CL SA 10 MEQ TAB PO ONE (18:00)
[2018-07-26] MEDS: METHYLPREDNISOLONE 125 MG INJ IV SCH ×2 (00:09→05:52)
[2018-07-26] MEDS: METRONIDAZOLE 500mg IVPB 500 MG/100 ML BAG IV SCH ×3 (00:09→17:45)
[2018-07-26] MEDS: MORPHINE 4 MG/ML SYR IV PRN ×2 (00:09→16:00)
[2018-07-26] MEDS: ONDANSETRON 4 MG/2 ML VIAL IV PRN ×2 (00:10→16:00)
[2018-07-26] MEDS: NA CHLORIDE 0.9% 1,000 ML IV SCH (00:37)
[2018-07-26 04:10] LABS: Absolute Lymphocytes (CBC) 0.7 K/uL (0.7-4.9); Absolute Monocytes 0.4 K/uL (0.1-1.3); Absolute Neutrophil 6.2 K/uL (1.8-8.0); Hematocrit 27.1 % (36.0-45.0); Lymphocytes % 9.4 % (15.3-44.8); Monocytes % 5.1 % (3.3-12.3); RBC Red Blood Cell Count 3.06 M/uL (3.86-4.86)
[2018-07-26 04:32] LABS: BUN Blood Urea Nitrogen 5 mg/dL (7-18); Bicarbonate 27 mmol/L (21-32); Glucose Level 132 mg/dL (74-106); Magnesium 2.5 mg/dL (1.8-2.4); Potassium 3.4 mmol/L (3.5-5.1); Sodium Level 146 mmol/L (136-145)
[2018-07-26] MEDS ORDERED: POTASSIUM CL SA 10 MEQ TAB PO ONE ×2 (04:45→16:00)
[2018-07-26] MEDS: CIPROFLOXACIN 400mg IV 400 MG/200 ML BAG IV SCH ×2 (08:17→21:10)
[2018-07-26] MEDS: AZATHIOPRINE 50 MG TABLET PO SCH (08:18)
[2018-07-26] MEDS: CITALOPRAM 10 MG TABLET PO SCH (08:19)
[2018-07-26] MEDS ORDERED: predniSONE 20 MG TAB PO SCH (09:00)
[2018-07-26] MEDS: NACHLORIDE 0.45% 1,000 ML IV SCH ×3 (09:00→21:10)
[2018-07-26] MEDS: METHYLPREDNISOLONE 40 MG INJ IV SCH ×2 (09:29→17:56)
--- NOTE | 2018-07-26 10:28 | RAD REPORT ---
EXAM DESCRIPTION: RAD - Chest Pa And Lat (2 Views) - 07/26/2018 9:47 am CLINICAL HISTORY: Chest pain COMPARISON: None. TECHNIQUE: PA and lateral views of the chest were obtained. FINDINGS: The lungs are clear. Heart size is normal and central vasculature is within normal limit s. No pleural effusion or pneumothorax seen. No acute bony finding noted. No aortic abnormality. IMPRESSION: No acute cardiopulmonary process.
--- NOTE | 2018-07-26 13:06 | P.PN ---
Subjective Date of Service: 07/26/18 Primary Care Provider: LEROY-Dr. Cid Chief Complaint: ulcerative colitis flare up Subjective: Improving Physical Examination - Vital Signs Temperature: 98.2 F Blood Pressure: 100/63 Pulse: 51 Respirations: 20 Pulse Ox (%): 96 - Physical Exam General: Alert, In no apparent distress, Oriented x3, Cooperative HEENT: Atraumatic Neck: Supple Respiratory: Clear to auscultation bilaterally, Normal air movement Cardiovascular: Normal pulses, Regular rate/rhythm Gastrointestinal: Normal bowel sounds, Soft and benign, Non-distended, Tenderness (Pain to the abdomen improved) Musculoskeletal: No erythema, No tenderness, No warmth Integumentary: No tenderness/swelling, No erythema, No warmth, No cyanosis Neurological: Normal speech, Normal strength at 5/5 x4 extr, Normal tone - Studies Medications List Reviewed: Yes Assessment & Plan Discharge Plan: Home Plan to discharge in: 24 Hours Physician Review Additional Text: Impression: Ulcerative pancolitis with history of ulcerative colitis Nausea and vomiting Hematochezia Plan: Case discussed with GI. Will continue with IV steroids and antibiotic therapy. IV fluids adjusted. Diet advanced to full liquid. Encourage incentive spirometer. Encourage ambulation. GI suspects likely discharge tomorrow if significantly improved. Will reassess. Time Spent Managing Pts Care (In Minutes): 55
[2018-07-26] MEDS ORDERED: KCL 20 MEQ/100 mL IVPB 20 MEQ/100 ML BAG IV SCH (17:00)
[2018-07-27] MEDS: METRONIDAZOLE 500mg IVPB 500 MG/100 ML BAG IV SCH ×2 (00:37→09:49)
[2018-07-27] MEDS: METHYLPREDNISOLONE 40 MG INJ IV SCH ×2 (00:37→09:51)
[2018-07-27 06:05] LABS: Absolute Lymphocytes (CBC) 0.9 K/uL (0.7-4.9); Absolute Monocytes 0.5 K/uL (0.1-1.3); Absolute Neutrophil 6.7 K/uL (1.8-8.0); Basophils % 0.2 % (0-1.3); Lymphocytes % 10.7 % (15.3-44.8); MPV 6.9 fL (7.6-11.3); Monocytes % 5.7 % (3.3-12.3); RBC Red Blood Cell Count 3.17 M/uL (3.86-4.86)
[2018-07-27 06:18] LABS: BUN Blood Urea Nitrogen 9 mg/dL (7-18); Bicarbonate 28 mmol/L (21-32); Glucose Level 125 mg/dL (74-106); Magnesium 2.4 mg/dL (1.8-2.4); Potassium 3.6 mmol/L (3.5-5.1); Sodium Level 141 mmol/L (136-145)
[2018-07-27] MEDS ORDERED: KCL 20 MEQ/100 mL IVPB 20 MEQ/100 ML BAG IV SCH (07:00)
[2018-07-27] MEDS: CITALOPRAM 10 MG TABLET PO SCH (09:50)
[2018-07-27] MEDS: AZATHIOPRINE 50 MG TABLET PO SCH (09:52)
--- NOTE | 2018-07-27 10:55 | P.DS ---
Admission Date: 07/23/18 Discharge Date: 07/27/18 Primary Care Provider: Dr. Roth([place], [place]); GI-Dr. Cid Disposition: ROUTINE DISCHARGE Discharge Condition: GOOD Reason for Admission: ulcerative colitis flare up Consultations: GI-Dr. Cid Procedures: CT scan: COMPARISON: Abdomen Pelvis W Contrast dated 05/30/2018 TECHNIQUE: Biphasic CT imaging of the abdomen and pelvis was performed with 100 ml non-ionic IV contrast. All CT scans are performed using dose optimization technique as appropriate and may include automated exposure control or mA/KV adjustment according to patient size. FINDINGS: The lung bases are clear. The liver, spleen, pancreas, adrenal glands and kidneys are within normal limits. Small sub centimeter benign hepatic cyst. No bowel obstruction, free air, free fluid or abscess. Mild inflammatory changes are seen involving the majority of the colon. This is compatible with colitis. No pneumatosis coli seen. The appendix is not identified as a discrete structure, however, no secondary findings of appendicitis are identified. No evidence of significant lymphadenopathy. No suspicious bony findings. IMPRESSION: Mild pancolitis is present. ABUS: CLINICAL HISTORY: Abdominal pain COMPARISON: July 23, 2018 cat scan FINDINGS: The liver has a normal echotexture. A gallstone is not seen. The gallbladder wall is not thickened. The biliary tree is normal caliber. The pancreas appears normal in size and echotexture. The right kidney measures 10 centimeters with a normal echotexture. The left kidney measures 10 centimeters with a normal echotexture. The spleen measures 12 centimeters. The abdominal aorta and inferior vena cava appear unremarkable IMPRESSION: Unremarkable exam Small bowel series: COMPARISON: None. FINDINGS: Contrast enters the colon by approximately 1 hour 30 minutes The mucosal folds of the small bowel appear normal. No permanent filling defects, obstructing or constricting lesions are seen. The small bowel caliber is normal. IMPRESSION: Unremarkable small bowel series. CXR: COMPARISON: None. TECHNIQUE: PA and lateral views of the chest were obtained. FINDINGS: The lungs are clear. Heart size is normal and central vasculature is within normal limits. No pleural effusion or pneumothorax seen. No acute bony finding noted. No aortic abnormality. IMPRESSION: No acute cardiopulmonary process. Medical Problem List: Ulcerative pancolitis with history of ulcerative colitis Nausea and vomiting Hematochezia Depression with anxiety Brief History of Present Illness: 37-year-old female presented to emergency room with abdominal pain, nausea and vomiting. Patient also reported diarrhea. Patient with history of ulceracolitis. CT scan revealed pancolitis. Patient was admitted for treatment. Patient on disease modifying medication. Hospital Course: Patient presented with abdominal pain, nausea, vomiting and diarrhea. CT scan revealed pancolitis. Patient with history of ulcerative colitis. Patient seen and evaluated by GI. Patient with ulcerative pancolitis. During the course of her stay her condition improved. Patient without significant abdominal pain at discharge. No significant nausea or vomiting noted at discharge. Diarrhea improved. Patient able tolerate current diet. At discharge she will continue with prednisone 20 mg 1 pill twice daily for 5 days then 1 pill once daily for 5 days. Patient will also continue with Cipro 500 mg 1 pill twice daily and Flagyl 500 mg 3 times a day for 7 days. Patient will be provided Zofran 8 mg 3 times a day as needed for nausea. Patient will follow up with GI on Monday for Remicade infusion. Patient will continue with Azathiopine 50 mg daily and mesalamine 1.2 g daily as directed by GI. Patient will continue with full liquid to soft bland diet at discharge. Patient with depression anxiety. Patient will continue with Celexa 20 mg daily. Vital Signs/Physical Exam: Temp Pulse Resp BP Pulse Ox 98.4 F 50 20 140/75 94 07/27/18 04:00 07/27/18 04:00 07/27/18 04:00 07/27/18 04:00 07/27/18 04:00 General: Alert, In no apparent distress, Oriented x3, Cooperative HEENT: Atraumatic Neck: Supple Respiratory: Clear to auscultation bilaterally, Normal air movement Cardiovascular: Normal pulses, Regular rate/rhythm Gastrointestinal: Normal bowel sounds, Soft and benign, Non-distended Musculoskeletal: No erythema, No tenderness, No warmth Integumentary: No tenderness/swelling, No erythema, No warmth, No cyanosis Neurological: Normal speech, Normal strength at 5/5 x4 extr, Normal tone, Normal affect Laboratory Data at Discharge: WBC 8.0 K/uL (4.3-10.9) 07/27/18 05:25 Hgb 9.5 g/dL (12.0-15.0) L 07/27/18 05:25 Hct 28.0 % (36.0-45.0) L 07/27/18 05:25 Plt Count 295 K/uL (152-406) 07/27/18 05:25 Sodium 141 mmol/L (136-145) 07/27/18 05:25 Potassium 3.6 mmol/L (3.5-5.1) 07/27/18 05:25 BUN 9 mg/dL (7-18) 07/27/18 05:25 Creatinine 0.52 mg/dL (0.55-1.3) L 07/27/18 05:25 Glucose 125 mg/dL (74-106) H 07/27/18 05:25 Magnesium 2.4 mg/dL (1.8-2.4) 07/27/18 05:25 Home Medications: Citalopram [Celexa*] 20 mg PO DAILY 05/29/18 Mesalamine 1.2 gm PO DAILY 07/23/18 azaTHIOprine [Azathioprine] 50 mg PO DAILY 07/23/18 Ciprofloxacin HCl [Cipro 500 MG Tablet] 500 mg PO BID #14 tab 07/27/18 Ondansetron HCl 8 mg PO Q8HP PRN #15 tablet 07/27/18 Prednisone [Deltasone] 20 mg PO SEECOM #15 tablet 07/27/18 metroNIDAZOLE [Flagyl] 500 mg PO Q8H #21 tablet 07/27/18 New Medications: Ciprofloxacin HCl [Cipro 500 MG Tablet] 500 mg PO BID #14 tab metroNIDAZOLE [Flagyl] 500 mg PO Q8H #21 tablet Ondansetron HCl 8 mg PO Q8HP PRN #15 tablet PRN Reason: Nausea Prednisone [Deltasone] 20 mg PO SEECOM #15 tablet Patient Discharge Instructions: 1. Patient will need a follow up with her PCP in 1 week to follow up this hospitalization. 2. Patient presented with abdominal pain, nausea, vomiting and diarrhea. CT scan revealed pancolitis. Patient with history of ulcerative colitis. Patient seen and evaluated by GI. Patient with ulcerative pancolitis. During the course of her stay her condition improved. Patient without significant abdominal pain at discharge. No significant nausea or vomiting noted at discharge. Diarrhea improved. Patient able tolerate current diet. At discharge she will continue with prednisone 20 mg 1 pill twice daily for 5 days then 1 pill once daily for 5 days. Patient will also continue with Cipro 500 mg 1 pill twice daily and Flagyl 500 mg 3 times a day for 7 days. Patient will be provided Zofran 8 mg 3 times a day as needed for nausea. Patient will follow up with GI on Monday for Remicade infusion. Patient will continue with Azathiopine 50 mg daily and mesalamine 1.2 g daily as directed by GI. Patient will continue with full liquid to soft bland diet at discharge. 3. Patient with depression anxiety. Patient will continue with Celexa 20 mg daily. Diet: Soft bland diet Activity: Ad kole Time spent managing pt's care (in minutes): 55
[2018-07-27] MEDS: NACHLORIDE 0.45% 1,000 ML IV SCH (11:40)
[2018-07-27] MEDS: CIPROFLOXACIN 400mg IV 400 MG/200 ML BAG IV SCH (12:00)
[2018-07-27] MEDS: ONDANSETRON 4 MG/2 ML VIAL IV PRN (12:03)
== END 2018-07-27 16:00 | disposition home or self-care (01) | DRG 386 ==
LOC: ER 14:10 → ERHOLD 19:32 → 4TH 20:58
PROVIDERS: ADMIT Internal Medicine; ATTEND Family Medicine
DX: K51.00 Ulcerative (chronic) pancolitis without complications (principal); K92.1 Melena; F41.8 Other specified anxiety disorders; Z87.891 Personal history of nicotine dependence
CPT/HCPCS: 36415; 71046; 74177; 74250; 76700; 80048; 81003; 83605; 83735; 84132; 84145; 85025; 86850; 86900; 86901; 87040; 87493; 99285; J0744; J2405; J2920; J2930; J7030; Q9967

== ENCOUNTER 2019-01-02 13:11 | Emergency (ER) | payer BC ==
--- OUTSIDE RECORDS SUMMARY | 2019-01-02 13:14 | XMS REPORT | Clinical Summary ---
:1980 Author Organization [facility] Address [address] [place] [id number] Care Team Providers Name Role Phone Hiram [...] Health Maintenance Due Date Last Done Comments INFLUENZA VACCINE 02/14/2019 Results Not on fileafter 01/01/2018 Advance Directives Patient has advance care planning documents on file. For more information, please contact:Trey Butler[address] [place] [phone]
--- OUTSIDE RECORDS SUMMARY | 2019-01-02 13:21 | XMS REPORT | Continuity of Care Document ---
:1980 Author Organization Interface Problems Problem Status Onset Classification Date Comments Source Date Reported Status post Active 03/21/20 Problem 10/15/2018 [facility] Acute sinusitis Active Problem 10/15/2018 [facility] Bronchitis Active Problem 10/15/2018 [facility] Community acquired Active Problem 10/15/2018 [facility] bacterial pneumonia [facility] Immunosuppressed Active Problem 10/15/2018 [facility] Ulcerative colitis Active Problem 10/15/2018 [facility] GI bleeding Resolved Problem 10/15/2018 [facility] General symptom Resolved Problem 10/15/2018 [facility] Hypotension Resolved Problem 10/15/2018 [facility] Pneumonia Resolved Problem 10/15/2018 [facility] [id number] Diagnosis 07/17/2018 [facility] [id number] Diagnosis 07/17/2018 [facility] [id number] Diagnosis 07/17/2018 [facility] [id number] Diagnosis 07/17/2018 [facility] [id number] Diagnosis 07/17/2018 [facility] Medications Medication Details Route Status Patient Ordering Order Source Instructions Provider Date Fluticasone Daily for NASAL Active [place] 07/13/ [facility] Propionate 50 Sinus 2018 [facility] Mcg/Act [facility] Levofloxacin Daily for ORAL Active [place]lin 07/13/ [facility] (Levofloxacin Infection 2018 [facility] 750 Mg) 750 Mg Medical Tab Center Phenyleph-Prom Three Times ORAL Active [place]lin 07/13/ [facility] ethazine W/ Daily As 2018 [facility] Cod Needed as Medical (Promethazine needed for Center Vc/Codeine) Cold Syp Symptoms Cefdinir Twice A Day ORAL Active Jackeline 07/08/ [facility] (Omnicef*) 300 for 2018 [facility] Mg Cap, 1 Cap Infection Medical Oral Center Guaifenesin/Co Every 6 ORAL Active Jackeline 07/08/ [facility] deine Hours As 2018 [facility] (Cheratussin Needed as Medical Ac) 5 Ml Syrp, needed for Center 5 Ml Oral Cough And Congestion Prednisone Daily for Uc ORAL Active Jackeline 07/08/ [facility] (Prednisone *) 2018 [facility] 20 Mg Tab, 40 Medical Mg Oral Center Cefdinir Twice A Day ORAL Active Jackeline 07/08/ [facility] (Omnicef) 300 for 2018 [facility] Mg Cap Infection Medical Center Guaifenesin/Co Every 6 ORAL Active Jackeline 07/08/ [facility] deine Hours As 2018 [facility] (Cheratussin Needed as Medical Ac) 5 Ml Syrp needed for Center Cough And Congestion Prednisone Daily for Uc ORAL Active Jackeline 07/08/ [facility] (Prednisone 20 2018 [facility] Mg*) 20 Mg Tab Medical Center Cefdinir Twice A Day ORAL Active Jackeline 07/08/ [facility] (Omnicef) 300 for 2018 [facility] Mg Cap, 1 Cap Infection Medical Oral Center Prednisone Daily for Uc ORAL Active Jackeline 07/08/ [facility] (Prednisone 20 2018 [facility] Mg*) 20 Mg Medical Tab, 40 Mg Center Oral Tramadol Hcl Three Times ORAL Active Devlin [facility] (Ultram *) 50 Daily As 2018 [facility] Mg Tab Needed for Medical Unknown Center Azathioprine Once Daily ORAL Active [place] (Azathioprine 2018 [facility] *) 50 Mg Tab, Medical 50 Mg Oral Center Infliximab As Directed INTRAVENOUS Active [place] (Remicade Sdv 2018 [facility] 100 Mg (10 Medical Mg/Ml) *) 100 Center Mg Inj, 0 Intravenous Mesalamine Daily for ORAL Active Devlin 04/26/ [facility] (Asacol Hd) Unknown 2018 [facility] 800 Mg Tab, Medical 2.4 Gm Oral Center Prednisone Daily for ORAL Active [place]lin 04/26/ [facility] (Prednisone *) Unknown 2018 [facility] 20 Mg Tab, 1 Medical Tab Oral Center Prednisone Daily for ORAL Active Devlin 04/26/ [facility] (Prednisone *) Unknown 2018 [facility] 5 Mg Alberto, 10 Medical Mg Oral Center Mesalamine Daily for ORAL Active Devlin 04/26/ [facility] (Asacol Hd) Unknown 2018 [facility] 800 Mg Tab Medical Center Prednisone Daily for ORAL Active [place]lin 04/26/ [facility] (Prednisone 5 Unknown 2018 [facility] Mg) 5 Mg [facility] Prednisone Daily for ORAL Active Devlin [facility] (Prednisone 20 Unknown 2018 [facility] Mg*) 20 Mg Tab Medical Center Tramadol Hcl Three Times ORAL Active Devlin 04/26/ [facility] (Tramadol Hcl Daily As 2018 [facility] 50 Mg (Ultram) Needed for Medical *) 50 Mg Tab Unknown Center Prednisone Daily for ORAL Active Devlin 04/26/ [facility] (Prednisone 20 Unknown 2018 [facility] Mg*) 20 Mg Medical Tab, 1 Tab Center Oral Prednisone Daily for ORAL Active Devlin [facility] (Prednisone 5 Unknown 2017 [facility] Mg) 5 Mg [facility] 10 Mg Oral Center Budesonide Once Daily ORAL Active [place] (Uceris) 9 Mg 2014 [facility] Tab, 9 Mg Oral Medical Center Once Daily ORAL Active [facility] Multivit-Min 2015 [facility] W/Fe-Fa * Medical ( *) Center Tab, 1 Tab Oral Hydrocodone-Ac Every 4-6H ORAL Active [place] [facility] etaminophen As Needed/ 2013 [facility] 5/325MG * Pain as Medical ([place] 5/325MG needed for Center *) 1 Tab Tab, Pain 1-2 Tabs Oral Ibuprofen 800 Every 6 ORAL Active [place] 03/24/ [facility] Mg Tab, 800 Mg Hours As 2013 [facility] Oral Needed Medical Center Hydrocodone-Ac Every 4-6H ORAL Active Alexandrea [facility] etaminophen As Needed/ 2013 [facility] 5/325MG * Pain as Medical ([place] 5/325MG needed for Center *) 1 Tab Tab, Pain 1-2 Tabs Oral Citalopram Daily ORAL Active [facility] Hydrobromide * [facility] 20 Mg Tab Medical Center Multiple Once Daily ORAL Active [facility] Vitamin * [facility] (Multivitamin Medical *) Tab Center Allergies, Adverse Reactions, Alerts Substance Category Reaction Severity Reaction Status Date Comments Source type Reported Immunizations Immunization Date Given Site Status Last Updated Comments Source Results Order Results Value Reference Date Interpretation Comments Source Name Range White blood cell 7.9 4.0 - 11.5 10/04 [facility] count /2019 [facility] Center RBC count 4.10 3.80 - 10/04 [facility] 5.20 /2018 [facility] Blood hemoglobin 10.6 10.5 - 10/04 [facility] measurement 15.7 [facility] (mass/volume) Medical Center Hematocrit 33.9 34.0 - 10/04 [facility] 50.0 [facility] MCV (mean 82.6 78 - 98 10/04 [facility] corpuscular volume) /2018 [facility] determination Medical Center Mean corpuscular 25.8 26.2 - 10/04 [facility] hemoglobin (MCH) 33.4 /2018 [facility] Mean corpuscular 31.3 31.5 - 10/04 [facility] hemoglobin 36.2 /2018 [facility] concentration Medical ([facility]) Center determination RDW 13.6 11.5 - 10/04[place] 15. [facility] Platelets bld 380 137 - 338 10/04 [facility] Blood platelet mean 5.6 8.4 - 11.8 10/04 [facility] volume /2018 [facility] Blood band 68.5 44.4 - 10/04 [facility] neutrophils/100 80.1 [facility] leukocytes Medical Center Body fluid 18.7 10.0 - 10/04 [facility] lymphocytes/100 50.0 [facility] leukocytes Medical [place] % 10.1 3.6 - 10/04[place] 12.04 [facility] Eosinophil % 2.0 0.0 - 5.41 10/04ago [facility] Basophil % 0.7 0.0 - 0.79 10/04ago [facility] Serum or plasma 100 74 - 106 10/04 [facility] glucose measurement /2018 [facility] (mass/volume) Medical Center Serum or plasma 14 6 - 20 10/04a urea nitrogen [facility] measurement Medical (mass/volume) Center Osmolality ser 280 280 - 300 10/04 [facility] Creatinine 0.6 0.50 - 10/04[place] measurement 0.90 [facility] Center Estimated null 10/04a glomerular /2018 [facility] filtration rate Medical (GFR) determination Center Serum or plasma 23.3 12 - 20 10/04[place] urea /2018 [facility] nitrogen/creatinine Medical ratio Center Sodium level 140 135 - 145 10/04 [facility] Potassium 3.8 3.5 - 5.2 10/04 [facility] Chloride 104 98 - 108 10/04 measurement [facility] CO2 25 21 - 32 10/04 [facility] Anion gap 14.8 12 - 20 10/04[place] measurement [facility] Calcium level 9.2 8.6 - 10.0 10/04 [facility] Total protein 7.2 6.6 - 8.7 10/04 [facility] Albumin 4.2 3.5 - 5.2 10/04 [facility] Globulin ser 3.0 10/04 [facility] Albumin-globulin 1.4 >1.0 10/04a ratio [facility] Bilirubin total null 0.0 - 1.2 10/04 [facility] AST 16 15 - 32 10/04 [facility] ALT (SGPT) ser/plas 14 0 - 33 10/04 [facility] ALP ser/plas 47 35 - 105 10/04ago [facility] White blood cell 13.6 4.0 - 11.5 07/30 [facility] count /2018 [facility] RBC count 3.83 3.80 - 07/30 [facility] 5. [facility] Blood hemoglobin 11.6 10.5 - 07/30[place] measurement 15.7 [facility] (mass/volume) Medical Center Hematocrit 35.4 34.0 - 07/30 [facility] 50.0 [facility] MCV (mean 92.4 78 - 98 07/30 [facility] corpuscular volume) /2018 [facility] Mean corpuscular 30.4 26.2 - 07/30 [facility] hemoglobin (MCH) 33.4 [facility] Mean corpuscular 32.9 31.5 - 07/30 [facility] hemoglobin 36.2 [facility] Center determination RDW 13.9 11.5 - 07/30[place] 15. [facility] Platelets bld 298 137 - 338 07/30[place] [facility] Blood platelet mean 5.2 8.4 - 11.8 07/30a volume [facility] Blood band 82.4 44.4 - 07/30a neutrophils/100 80.1 [facility] Body fluid 11.1 10.0 - 07/30 [facility] lymphocytes/100 50.0 [facility] leukocytes [facility] [place] % 3.7 3.6 - 07/30[place] 12.04 [facility] Eosinophil % 2.5 0.0 - 5.41 07/30 [facility] Basophil % 0.3 0.0 - 0.79 07/30 [facility] Serum or plasma 112 74 - 106 07/30 [facility] glucose measurement [facility] (mass/volume) [facility] Serum or plasma 20 6 - 20 07/30 [facility] urea nitrogen [facility] Medical (mass/volume) [place] Osmolality ser 281 280 - 300 07/30 [facility] /2019 [facility] Creatinine 0.8 0.50 - 07/30 [facility] measurement 0.90 [facility] Estimated null 07/30 glomerular [facility] filtration rate Medical (GFR) determination Center Serum or plasma 25.0 12 - 20 07/30 [facility] urea [facility] nitrogen/creatinine Medical ratio Center Sodium level 139 135 - 145 07/30 [facility] Potassium 3.5 3.5 - 5.2 07/30 [facility] Chloride 99 98 - 108 07/30 [facility] measurement [facility] CO2 28 21 - 32 07/30 [facility] Anion gap 15.5 12 - 20 07/30 [facility] measurement [facility] Calcium level 8.7 8.6 - 10.0 07/30 [facility] /2019 [facility] Total protein 5.8 6.6 - 8.7 07/30 [facility] /2019 [facility] Albumin 3.2 3.5 - 5.2 07/30 [facility] /2019 [facility] Globulin ser 2.6 07/30 [facility] Albumin-globulin 1.2 >1.0 07/30[place] ratio ser 2019 [facility] Bilirubin total null 0.0 - 1.2 07/30 [facility] AST 9 15 - 32 07/30 [facility] ALT (SGPT) ser/plas 9 0 - 33 07/30 [facility] ALP ser/plas 43 35 - 105 07/30 [facility] Glucose blood 573 70.0 - 110 07/14a fingerstick [facility] Glucose blood 573 70.0 - 110 07/14 fingerstick [facility] White blood cell 12.6 4.0 - 11.5 07/12a count [facility] RBC count 4.14 3.80 - 07/12[place] 5.20 [facility] Blood hemoglobin 12.2 10.5 - 07/12[place] measurement 15.7 [facility] (mass/volume) [facility] Hematocrit 37.4 34.0 - 07/12 [facility] 50.0 [facility] MCV (mean 90.3 78 - 98 07/12[place] corpuscular volume) /2017 [facility] Mean corpuscular 29.4 26.2 - 07/12 [facility] hemoglobin (MCH) 33.4 [facility] Mean corpuscular 32.6 31.5 - 07/12[place] hemoglobin 36.2 [facility] ([facility]) Center determination RDW 13.4 11.5 - 07/12 [facility] 15. [facility] Platelets bld 244 137 - 338 07/12a [facility] Blood platelet mean 5.8 8.4 - 11.8 07/12[place] volume /2017 [facility] Blood band 85.9 44.4 - 07/12 [facility] neutrophils/100 80.1 /2017 [facility] Center Body fluid 11.8 10.0 - 07/12 [facility] lymphocytes/100 50.0 [facility] [place] % 2.1 3.6 - 07/12 [facility] 12.04 [facility] Eosinophil % 0.0 0.0 - 5.41 07/12 [facility] Basophil % 0.2 0.0 - 0.79 07/12 [facility] Serum or plasma 186 74 - 106 07/12 [facility] glucose measurement [facility] (mass/volume) Medical Center Serum or plasma 186 74 - 106 07/12 [facility] glucose measurement [facility] (mass/volume) Medical Center Serum or plasma 14 - 20 07/12[place] urea nitrogen [facility] Medical (mass/volume) Center Osmolality ser 283 280 - 300 07/12 [facility] Creatinine 0.6 0.50 - 07/12 [facility] measurement 0.90 [facility] Estimated null 07/12 glomerular [facility] filtration rate Medical (GFR) determination Center Serum or plasma 23.3 - 07/12 [facility] urea [facility] nitrogen/creatinine Medical ratio Center Sodium level 139 135 - 145 07/12agord [facility] Potassium 3.4 3.5 - 5.2 07/12 [facility] Chloride 103 98 - 108 07/12 [facility] measurement [facility] CO2 24 21 - 32 07/12 [facility] Anion gap 15.4 - 07/12 [facility] measurement [facility] Calcium level 8.9 8.6 - 10.0 07/12 [facility] Mycoplasma IgG 471 0 - 99 07/10 [facility] antibody assay [facility] Mycoplasma null 0 - 769 07/10 [facility] pneumoniae IgM [facility] antibody assay Medical Center Mycoplasma IgG 471 0 - 99 07/10 [facility] antibody assay [facility] Mycoplasma null 0 - 769 07/10 [facility] pneumoniae IgM [facility] antibody assay Medical [place] Color of Urine by LIGHT 07/10 [facility] Auto YELLOW [facility] Automated urine null None 07/10 [facility] sediment casts Detect [facility] (number/area) [facility] Center Urine Culture NO 07/10 [facility] Reflexed [facility] Urine total NEGATIVE NEGATIVE 07/10 [facility] bilirubin /2018 [facility] measurement Medical (mass/volume) Center Ketones NEGATIVE NEGATIVE 07/10 [facility] [Mass/volume] in [facility] Urine by Automated Medical test strip Center Specific gravity of 1.010 1.003 - 07/10 [facility] Urine by Automated .030 [facility] test strip Medical Center Urine Legionella Negative Negative 07/10 [facility] antigen detection [facility] Urine pH 6.000 5 - 9 07/10 [facility] measurement [facility] Urine protein test NEGATIVE NEGATIVE 07/10 [facility] by dipstick [facility] Urine urobilinogen NORMAL 0.2 - 1.0 07/10 [facility] detection [facility] Nitrite ur dipstick NEGATIVE NEGATIVE 07/10 [facility] Urine leukocyte NEGATIVE NEGATIVE 07/10 [facility] esterase detection [facility] by automated test Medical strip Center RBC count ur auto null 0 - 5 07/10 [facility] Leukocytes [#/area] null 0 - 5 07/10 [facility] in Urine sediment [facility] by Automated count Medical Center Epithelial cells null 0 - 5 07/10 [facility] detection in urine [facility] sediment by light Medical microscopy Center Automated urine null None 07/10 [facility] sediment casts Detect [facility] (number/area) Medical Center Urine Culture NO 07/10 [facility] Reflexed [facility] Urine Legionella Negative Negative 07/10 [facility] antigen detection [facility] Color of Urine by LIGHT 07/10 [facility] Auto YELLOW [facility] Urine appearance CLEAR CLEAR 07/10 [facility] determination [facility] Glucose [Presence] NEGATIVE NEGATIVE 07/10 [facility] in Urine by [facility] Automated test Medical strip Center Urine total NEGATIVE NEGATIVE 07/10 [facility] bilirubin [facility] measurement Medical (mass/volume) Center Ketones NEGATIVE NEGATIVE 07/10 [facility] [Mass/volume] in [facility] Urine by Automated Medical test strip Center Specific gravity of 1.010 1.003 - 07/10 [facility] Urine by Automated .030 [facility] test strip Medical Center Urine blood NEGATIVE NEGATIVE 07/10 [facility] detection by [facility] dipstick Medical Center Urine pH 6.000 5 - 9 07/10 [facility] measurement [facility] Urine protein test NEGATIVE NEGATIVE 07/10 [facility] by dipstick [facility] Urine urobilinogen NORMAL 0.2 - 1.0 07/10 [facility] detection [facility] Nitrite ur dipstick NEGATIVE NEGATIVE 07/10a [facility] Urine leukocyte NEGATIVE NEGATIVE 07/10[place] esterase detection [facility] by automated test Medical strip Center RBC count ur auto null 0 - 5 07/10[place] [facility] Leukocytes [#/area] null 0 - 5 07/10 [facility] in Urine sediment [facility] by Automated count Medical [place] Epithelial cells null 0 - 5 07/10[place] detection in urine [facility] sediment by light Medical microscopy Center Urine Legionella Negative Negative 07/10a antigen detection [facility] Blood culture FINAL 07/10[place] REPORT. [facility] Total protein 6.5 6.6 - 8.7 07/10[place] [facility] Total protein 6.5 6.6 - 8.7 07/10[place] [facility] Albumin 3.6 3.5 - 5.2 07/10[place] [facility] Globulin ser 2.9 07/10 [facility] Albumin-globulin 1.2 >1.0 07/10[place] ratio ser 2018 [facility] Bilirubin total 0.4 0.0 - 1.2 07/10 [facility] AST 37 15 - 32 07/10a [facility] ALT (SGPT) ser/plas 39 0 - 33 07/10a [facility] ALP ser/plas 60 35 - 105 07/10ago [facility] Throat culture for No growth. 07/10[place] group A [facility] beta-hemolytic [facility] Streptococcus Center Automated 16 0.00 - 20 07/07a erythrocyte /2017 [facility] sedimentation rate Medical (ESR) Center RBC count 3.90 3.80 - 07/07 [facility] 5.20 [facility] Blood hemoglobin 11.7 10.5 - 07/07 [facility] measurement 15.7 [facility] (mass/volume[facility] Medical Center Hematocrit 35.6 34.0 - 07/07 [facility] 50.0 [facility] Medical Center MCV (mean 91.2 78 - 98 07/07 [facility] corpuscular volume) /2017 [facility] determination Medical Center Mean corpuscular 30.0 26.2 - 07/07 [facility] hemoglobin (MCH) 33.4 /2017 [facility] determination Medical Center Mean corpuscular 32.9 31.5 - 07/07 [facility] hemoglobin 36.2 /2017 [facility] concentration Medical (MCHC) Center determination RDW 13.8 11.5 - 07/07 [facility] 15.5 [facility] Platelets bld 232 137 - 338 07/07[place]ord[place] [facility] Blood platelet mean 5.3 8.4 - 11.8 07/07 [facility] volume /2017 [facility] Blood band 76.5 44.4 - 07/07a neutrophils/100 80.1 /2017 [facility] leukocytes Medical Center Body fluid 16.4 10.0 - 07/07[place] lymphocytes/100 50.0 /2017 [facility] leukocytes Medical [place] % 5.9 3.6 - 07/07 [facility] 12.04 [facility] Eosinophil % 0.6 0.0 - 5.41 07/07[place]ord[place] [facility] Basophil % 0.5 0.0 - 0.79 07/07 [facility] Automated 16 0.00 - 20 07/07a erythrocyte /2017 [facility] sedimentation rate Medical (ESR) Center Serum or plasma 123 74 - 106 07/07a glucose measurement [facility] (mass/volume) Medical Center Serum or plasma 5 6 - 20 07/07a urea nitrogen [facility] measurement Medical (mass/volume) Center Osmolality ser 276 280 - 300 07/07 [facility] Center Creatinine 0.6 0.50 - 07/07[place] measurement 0.90 [facility] Center Estimated null 07/07a glomerular /2017 [facility] filtration rate Medical (GFR) determination Center Serum or plasma 8.3 12 - 20 07/07rda urea [facility] nitrogen/creatinine Medical ratio Center Sodium level 139 135 - 145 07/07rda [facility] Potassium 3.7 3.5 - 5.2 07/07 [facility] Chloride 104 98 - 108 07/07 [facility] measurement [facility] CO2 23 21 - 32 07/07 [facility] Anion gap 15.7 12 - 07/07 [facility] measurement [facility] Calcium level 8.6 8.6 - 10.0 07/07 [facility] Color of Urine by COLORLESS 07/07 [facility] Auto [facility] Urine appearance CLEAR CLEAR 07/07 [facility] determination [facility] Glucose [Presence] NEGATIVE NEGATIVE 07/07 [facility] in Urine by [facility] Automated test Medical strip Center Urine total NEGATIVE NEGATIVE 07/07 [facility] bilirubin [facility] Medical (mass/volume) Center Ketones 2+(MODERAT NEGATIVE 07/07 [facility] [Mass/volume] in E) [facility] Urine by Automated Medical test strip Center Specific gravity of 1.008 1.003 - 07/07 [facility] Urine by Automated 1.030 [facility] test strip Medical Center Urine blood NEGATIVE NEGATIVE 07/07 [facility] detection by [facility] dipstick Medical Center Urine pH 7.000 5 - 9 07/07 [facility] measurement /2017 [facility] Urine protein test NEGATIVE NEGATIVE 07/07 [facility] by dipstick [facility] Urine urobilinogen NORMAL 0.2 - 1.0 07/07 [facility] detection [facility] Nitrite ur dipstick NEGATIVE NEGATIVE 07/07 [facility] Urine leukocyte NEGATIVE NEGATIVE 07/07 [facility] esterase detection [facility] by automated test Medical strip Center RBC count ur auto null 0 - 5 07/07 [facility] Leukocytes [#/area] null 0 - 5 07/07 [facility] in Urine sediment [facility] by Automated count Medical Center Epithelial cells null 0 - 5 07/07 [facility] detection in urine [facility] sediment by light Medical microscopy Center Automated urine None None 07/07 [facility] sediment casts Detected [facility] (number/area) Medical Center Urine Culture NO 07/07 [facility] Reflexed [facility] Blood culture SPECIMEN 07/06 HAS /2017 [facility] IN LAB AND Center IS IN PROGRESS. Total protein 6.5 6.6 - 8.7 06/09 [facility] Albumin 3.8 3.5 - 5.2 06/09 [facility] Globulin ser 2.7 06/09ago [facility] Albumin-globulin 1.4 >1.0 06/09a ratio ser /2018 [facility] Bilirubin total 0.5 0.0 - 1.2 06/09 [facility] /2018 [facility] AST 10 15 - 32 06/09 [facility] ALT (SGPT) ser/plas 10 0 - 33 06/09 [facility] ALP ser/plas 56 35 - 105 06/09 [facility] /2018 [facility] White blood cell 10.7 4.0 - 11.5 06/09a count [facility] RBC count 4.63 3.80 - 06/09 [facility] 5.20 [facility] Blood hemoglobin 14.0 10.5 - 06/09 [facility] measurement 15.7 [facility] (mass/volume) [facility] Hematocrit 41.4 34.0 - 06/09rda 50.0 [facility] MCV (mean 89.4 78 - 98 06/[place] corpuscular volume) [facility] Mean corpuscular 30.3 26.2 - 06/09 [facility] hemoglobin (MCH) 33.4 [facility] Mean corpuscular 33.9 31.5 - 06/09 [facility] hemoglobin 36.2 /2017 [facility] ([facility]) Center determination RDW 13.2 11.5 - 06/09 [facility] 15.5 [facility] Platelets bld 198 137 - 338 06/09 [facility] Blood platelet mean 6.1 8.4 - 11.8 06/09 [facility] volume [facility] Blood band 68.8 44.4 - 06/09 [facility] neutrophils/100 80.1 /2017 [facility] leukocytes [facility] Body fluid 16.3 10.0 - 06/09 lymphocytes/100 50.0 [facility] leukocytes [facility] [place] % 10.4 3.6 - 06/[place] 12.04 [facility] Eosinophil % 3.8 0.0 - 5.41 06/09a [facility] Basophil % 0.7 0.0 - 0.79 06/09 [facility] Serum or plasma 90 74 - 106 06/09 glucose measurement [facility] (mass/volume) [facility] Serum or plasma 13 6 - 20 06/09 urea nitrogen [facility] (mass/volume) [place] Osmolality ser 275 280 - 300 06/09 [facility] Creatinine 0.8 0.50 - 06/09 measurement 0.90 [facility] Total protein 6.5 6.6 - 8.7 06/09 [facility] Albumin 3.8 3.5 - 5.2 06/09 [facility] Globulin ser 2.7 06/09 [facility] Albumin-globulin 1.4 >1.0 06/09 ratio ser [facility] Bilirubin total 0.5 0.0 - 1.2 06/09 [facility] AST 10 15 - 32 06/09 [facility] ALT (SGPT) ser/plas 10 0 - 33 06/09 [facility] ALP ser/plas 56 35 - 105 06/09 [facility] Thiopurine 18.8 05/28[place] methyltransferase [facility] (TPMT) activity Medical Center Hepatitis C virus NEGATIVE 05/28a (HCV) RNA detection [facility] Quantitative 0 05/28 hepatitis C virus [facility] RNA measurement Medical Center Thiopurine 18.8 05/28 [facility] methyltransferase [facility] (TPMT) activity Medical [place] Hepatitis C virus NEGATIVE 05/28a (HCV) RNA detection [facility] Quantitative 0 05/28 hepatitis C virus [facility] RNA measurement [facility] Center Hepatitis B core Negative Negative 11/07 [facility] antibody [facility] Hepatitis B virus Negative Negative 05/23 [facility] core IgM antibody [facility] assay Medical Center Hepatitis B virus Reactive . 05/23 [facility] surface antigen Regional antibody titer Medical Center Hepatitis B Surface Negative Negative 05/23 [facility] Antigen [facility] Hepatitis B core Negative Negative 05/23 [facility] antibody [facility] Hepatitis B virus Negative Negative 05/23 [facility] core IgM antibody [facility] assay [facility] Center Hepatitis B virus Reactive . 05/23 [facility] surface antigen Regional antibody titer Medical Center Hepatitis B Surface Negative Negative 05/23 [facility] Antigen [facility] Hepatitis B core Negative Negative 05/23 [facility] antibody [facility] Hepatitis B virus Negative Negative 05/23 [facility] core IgM antibody [facility] assay [facility] Hepatitis B virus Reactive . 05/23 [facility] surface antigen Regional antibody titer [facility] Center Hepatitis B Surface Negative Negative 05/23 [facility] Antigen [facility] C-reactive protein 1.4 0.0 - 5.0 05/17 [facility] measurement by high /2018 Regional sensitivity method [facility] Center C-reactive protein 1.4 0.0 - 5.0 05/17 [facility] measurement by high /2018 [facility] sensitivity method Medical Center C-reactive protein 1.4 0.0 - 5.0 05/17 [facility] measurement by high /2018 [facility] sensitivity method Medical Center Automated 11 0.00 - 20 05/17 [facility] erythrocyte [facility] sedimentation rate Medical (ESR) Center White blood cell 10.6 4.0 - 11.5 10 [facility] count /2017 [facility] RBC count 4.87 3.80 - 10 [facility] 5.20 [facility] Blood hemoglobin 14.9 10.5 - 10 [facility] measurement 15.7 [facility] (mass/volume) [facility] Hematocrit 43.3 34.0 - 10 [facility] 50.0 [facility] MCV (mean 88.9 78 - 98 04/25 [facility] corpuscular volume) /2017 [facility] Mean corpuscular 30.5 26.2 - 10 [facility] hemoglobin (MCH) 33.4 [facility] determination Medical Center Mean corpuscular 34.3 31.5 - 04/25a hemoglobin 36.2 /2017 [facility] concentration Medical ([facility]) Center determination RDW 12.2 11.5 - 04/25[place] 15.5 [facility] Platelets bld 241 137 - 338 10 [facility] Blood platelet mean 6.6 8.4 - 11.8 04/25rda volume [facility] Blood band 89.4 44.4 - 04/25a neutrophils/100 80.1 [facility] leukocytes Medical Center Body fluid 6.6 10.0 - 04/25 [facility] lymphocytes/100 50.0 [facility] leukocytes Medical Center [place] % 3.7 3.6 - 04/25[place] 12.04 [facility] Eosinophil % 0.0 0.0 - 5.41 04/25 [facility] Basophil % 0.3 0.0 - 0.79 04/25 [facility] Serum or plasma 144 74 - 106 04/25a glucose measurement [facility] (mass/volume) Medical Center Serum or plasma 6 6 - 20 04/25 [facility] urea nitrogen [facility] measurement Medical (mass/volume) Center Osmolality ser 281 280 - 300 04/25 [facility] Creatinine 0.6 0.50 - 04/25rda measurement 0.90 [facility] Estimated null 04/25 glomerular Regional filtration rate Medical (GFR) determination Center Serum or plasma 10.0 12 - 20 04/25 urea [facility] nitrogen/creatinine Medical ratio Center Sodium level 141 135 - 145 04/25 [facility] Potassium 4.2 3.5 - 5.2 04/25 [facility] Chloride 105 98 - 108 04/25rda measurement [facility] CO2 26 21 - 32 04/25 [facility] Anion gap 14.2 12 - 20 04/25 [facility] measurement [facility] Calcium level 9.2 8.6 - 10.0 04/25 [facility] Prothrombin time 10.6 10.3 - 04/24 [facility] 12. [facility] Whole blood INR 0.96 04/24 [facility] measurement [facility] Whole blood INR 26.0 22.5 - 04/24 [facility] measurement 37.0 [facility] Prothrombin time 10.6 10.3 - 04/24 [facility] 12.3 [facility] Whole blood INR 0.96 10 [facility] measurement [facility] Whole blood INR 26.0 22.5 - 10 [facility] measurement 37.0 [facility] Glucose blood 76 70 - 110 04/23 [facility] fingerstick [facility] Glucose blood 76 70 - 110 04/23 [facility] fingerstick [facility] Automated urine null None 04/23 [facility] sediment casts Detect [facility] (number/area) Medical [place] Urine Culture YES 04/23 [facility] Reflexed [facility] Glucose [Presence] NEGATIVE NEGATIVE 04/23 [facility] in Urine by [facility] Automated test Medical strip Center Urine total NEGATIVE NEGATIVE 04/23 [facility] bilirubin [facility] measurement Medical (mass/volume) Center Ketones NEGATIVE NEGATIVE 04/23 [facility] [Mass/volume] in [facility] Urine by Automated Medical test strip Center Specific gravity of 1.017 1.003 - 04/23 [facility] Urine by Automated 1.030 [facility] test strip Medical Center Urine blood NEGATIVE NEGATIVE 04/23 [facility] detection by [facility] dipstick Medical Center Urine pH 6.000 5 - 9 04/23 [facility] measurement [facility] Urine protein test NEGATIVE NEGATIVE 04/23 [facility] by dipstick [facility] Urine urobilinogen NORMAL 0.2 - 1.0 04/23 [facility] detection [facility] Nitrite ur dipstick NEGATIVE NEGATIVE 04/23 [facility] Urine leukocyte 1+ NEGATIVE 04/23 [facility] esterase detection [facility] by automated test Medical strip Center RBC count ur auto null 0 - 5 04/23 [facility] Leukocytes [#/area] null 0 - 5 04/23 [facility] in Urine sediment [facility] by Automated count Medical Center Epithelial cells null 0 - 5 04/23 [facility] detection in urine [facility] sediment by light Medical microscopy Center Automated urine null None 04/23 [facility] sediment casts Detect [facility] (number/area) Medical Center Urine Culture YES 04/23 [facility] Reflexed [facility] Color of Urine by YELLOW 04/23 [facility] Auto [facility] Urine appearance CLEAR CLEAR 04/23 [facility] determination [facility] Glucose [Presence] NEGATIVE NEGATIVE 04/23 [facility] in Urine by [facility] Automated test Medical strip Center Urine total NEGATIVE NEGATIVE 04/23 [facility] bilirubin [facility] measurement Medical (mass/volume) Center Ketones NEGATIVE NEGATIVE 04/23 [facility] [Mass/volume] in [facility] Urine by Automated Medical test strip Center Specific gravity of 1.017 1.003 - 04/23 [facility] Urine by Automated 1.030 [facility] test strip Medical Center Urine blood NEGATIVE NEGATIVE 04/23 [facility] detection by [facility] dipstick Medical Center Urine pH 6.000 5 - 9 04/23 [facility] measurement [facility] Urine protein test NEGATIVE NEGATIVE 04/23 [facility] by dipstick [facility] Urine urobilinogen NORMAL 0.2 - 1.0 04/23 [facility] detection [facility] Nitrite ur dipstick NEGATIVE NEGATIVE 04/23 [facility] Urine leukocyte 1+ NEGATIVE 04/23 [facility] esterase detection [facility] by automated test Medical strip Center RBC count ur auto null 0 - 5 04/23 [facility] Leukocytes [#/area] null 0 - 5 04/23 [facility] in Urine sediment [facility] by Automated count Medical Center Epithelial cells null 0 - 5 04/23 [facility] detection in urine [facility] sediment by light Medical microscopy Center Blood culture FINAL 04/23 [facility] REPORT. [facility] Automated 12 0.00 - 20 04/23 [facility] erythrocyte [facility] sedimentation rate Medical (ESR) Center Lactic acid 1.05 0.5 - 2.2 04/23 [facility] Serum procalcitonin 0.0 0.0 - 0.8 04/23 [facility] measurement [facility] Total protein 6.8 6.6 - 8.7 04/23 [facility] Albumin 4.0 3.5 - 5.2 04/23 [facility] Globulin ser 2.8 04/23 [facility] Albumin-globulin 1.4 >1.0 04/23[place] ratio [facility] Bilirubin total 0.4 0.0 - 1.2 04/23 [facility] AST 10 15 - 32 04/23 [facility] ALT (SGPT) ser/plas 11 0 - 33 04/23 [facility] Lipase 19 13 - 60 04/23 [facility] C-reactive protein 2.6 0.0 - 5.0 04/23a measurement by [facility] sensitivity [facility] ALP ser/plas 53 35 - 105 04/23 [facility] Lactic acid 1.05 0.5 - 2.2 04/23 [facility] Serum procalcitonin 0.0 0.0 - 0.8 04/23 measurement [facility] Lipase 19 13 - 60 04/23 [facility] Bacterial urine Urine [facility] culture Bacteria [facility] Vital Signs Vital Sign Value Date Comments Source Encounters Location Location Encounter Encounter Reason Attending ADM DC Status Source Details Type Number For Provider Date Date Visit Discharged [id number] TAMMIE 04/23 04/26 [facility] Inpatient 36 QUITA DILLON /2017 [facility] (obs) [facility] Registered [id number] TAMMIE 05/17 [facility] 07 QUITA DILLON [facility] Registered [id number] SALOMÓN 05/23 [facility] 17 RAMIREZ [facility] Departed [id number] DON 06/09 06/09 [facility] Emergency 41 CHI [facility] Room [facility] Discharged [id number] VERNON THOMASON 06/12 06/15 [facility] Recurring 97 /2017 [facility] Registered [id number] TAMMIE 06/18 [facility] 63 QUITA DILLON [facility] Discharged [id number] SALOMÓN 06/26 07/16 [facility] Recurring 88 RAMIREZ [facility] Discharged [id number] [facility] 07/06 07/08 [facility] Inpatient 85 QUITA DILLON /2017 [facility] (obs) Medical Center Discharged [id number] [facility] 07/10 07/13 [facility] Inpatient 58 QUITA DILLON /2017 [facility] (obs) Medical Center Discharged [id number] SALOMÓN 07/30 08/16 [facility] Recurring 28 RAMIREZ [facility] Discharged [id number] SALOMÓN 10/04 10/14 [facility] Recurring 59 RAMIREZ [facility] Procedures Procedure Code Date Perfomer Comments Source Computed tomography [id number] DEVLIN [facility] of head without 8 [facility] contrast [facility] [place] thor[place] [id number] DEVLIN [facility] contrast 8 [facility] X-ray of paranasal [id number] DEVLIN [facility] sinuses, three or 8 [facility] X-ray of chest, two [id number] MORIS Vahid [address] EMERGENCY DEPT [address] [facility] VISIT 8 [facility] THER/PROPH/[place] [address] [facility] INF INIT 8 [facility] TX/[place] [address] [facility] DRUG ADDON 8 [facility] HYDRATE IV INFUSION 71069 [facility] ADD-ON 8 [facility] X-RAY EXAM CHEST 2 55977 [facility] 8 [facility] COMPLETE CBC W/AUTO 87128 [facility] DIFF WBC 8 [facility] [place] [address] [facility] BACTERIA 8 [facility] MYCOPLASMA ANTIBODY [address] [facility] [address] [place] [address] STREP A ASSAY 29794 [facility] W/OPTIC 8 [facility] URINALYSIS AUTO 35173 [facility] W/SCOPE 8 [facility] ROUTINE 49123 [facility] VENIPUNCTURE 8 [facility] AGENT NOS ASSAY 36517 [facility] W/OPTIC 8 [facility] COMPREHEN METABOLIC 59877 [facility] PANEL 8 [facility] INFLUENZA ASSAY 17159 [facility] W/OPTIC 8 [facility] [place] [address] [facility] MULT 8 [facility] AIRWAY INHALATION 39810 [facility] TREATMENT 8 [facility] TX/PRO/DX INJ SAME 74219 [facility] DRUG FELTMAKER 8 [facility] METABOLIC PANEL 61563 [facility] TOTAL CA 8 [facility] THER/PROPH/DIAG INJ 61795 [facility] SC/IM [address] [facility] [address] THORAX W/O DYE 66760 [facility] 8 [facility] [place] [address] [facility] SINUSES [address] [facility] CT HEAD/BRAIN W/O 06606 [facility] DYE 8 [facility] ASSAY GLUCOSE BLOOD 16845 [facility] QUANT 8 [facility] MORPHINE SULFATE J2270 [facility] INJECTION 8 [facility] HOSPITAL G0378 [facility] OBSERVATION 8 [facility] PER HOUR [facility] INJECTION, J1650 [facility] ENOXAPARIN SODIUM, 8 [facility] 10 MG [facility] X-ray of chest, [id number] JACKELINE [facility] single view 8 [facility] X-ray of chest, [id number] DEVLIN [facility] single view 8 [facility] X-RAY EXAM CHEST 1 94685 [facility] VIEW 8 [facility] [place] [address] [facility] BACTERIA 8 [facility] HEMATOCRIT 61870 [facility] 8 [facility] HEMOGLOBIN 92608 [facility] 8 [facility] SMEAR GRAM STAIN 54654 [facility] 8 [facility] ROUTINE 89136 [facility] VENIPUNCTURE 8 [facility] CULTURE OTHR 15650 [facility] SPECIMN AEROBIC 8 [facility] COMPLETE CBC W/AUTO 61178 [facility] DIFF WBC 8 [facility] RBC SED RATE 97585 [facility] AUTOMATED 8 [facility] URINALYSIS AUTO 89527 [facility] W/SCOPE 8 [facility] METABOLIC PANEL 87763 [facility] TOTAL CA 8 [facility] MORPHINE SULFATE J2270 [facility] INJECTION 8 [facility] METABOLIC PANEL 41652 [facility] TOTAL CA 8 [facility] COMPLETE CBC 80434 [facility] AUTOMATED 8 [facility] ROUTINE 67521 [facility] VENIPUNCTURE 8 [facility] EMERGENCY DEPT 05406 [facility] VISIT 8 [facility] CT ABD & PELV 94831 [facility] W/CONTRAST 8 [facility] THER/PROPH/[place] [address] [facility] INF INIT 8 [facility] TX/PRO/DX INJ NEW 74619 [facility] DRUG ADDON 8 [facility] HYDRATE IV INFUSION 54233 [facility] ADD-ON 8 [facility] THER/PROPH/[place] [address] [facility] INF ADDON 8 [facility] BLOOD TYPING 61390 [facility] SEROLOGIC ABO 8 [facility] COMPLETE CBC W/AUTO 98611 [facility] DIFF WBC 8 [facility] ROSA M TEST 76274 [facility] INDIRECT QUAL 8 [facility] BLOOD TYPING 36957 [facility] SEROLOGIC RH(D) 8 [facility] ROUTINE 75379 [facility] VENIPUNCTURE 8 [facility] COMPREHEN METABOLIC 61917 [facility] PANEL 8 [facility] Computed tomography [id number] CHI [facility] of abdomen and 8 [facility] pelvis with Medical contrast Center TB TEST CELL IMMUN 35143 [facility] MEASURE 8 [facility] HEPATITIS C REVRS 95933 [facility] TRNSCRPJ 8 [facility] HEPATITIS C 69472 [facility] PROBE&RVRS TRNSC 8 [facility] ENZYME CELL 85842 [facility] ACTIVITY 8 [facility] IMMUNOASSAY 01543 [facility] INFECTIOUS AGENT 8 [facility] HEP B CORE ANTIBODY 09276 [facility] TOTAL 8 [facility] HEP B CORE ANTIBODY 02420 [facility] IGM 8 [facility] HEPATITIS B SURFACE 00537 [facility] AG IA 8 [facility] ROUTINE 25811 [facility] VENIPUNCTURE 8 [facility] COMPREHEN METABOLIC 97222 [facility] PANEL 8 [facility] COMPLETE CBC W/AUTO 70298 [facility] DIFF WBC 8 [facility] C-REACTIVE PROTEIN 45604 [facility] 8 [facility] RBC SED RATE 63497 [facility] AUTOMATED 8 [facility] ROUTINE 98499 [facility] VENIPUNCTURE 8 [facility] Computed tomography [id number] DEVLIN [facility] of abdomen and 8 [facility] pelvis with Medical contrast Center COMPLETE CBC W/AUTO 80167 [facility] DIFF WBC 8 [facility] C-REACTIVE PROTEIN 48955 [facility] 8 [facility] [place] [address] [facility] BACTERIA 8 [facility] ASSAY GLUCOSE BLOOD 65321 [facility] QUANT 8 [facility] HEMATOCRIT 51527 [facility] 8 [facility] HEMOGLOBIN 58386 [facility] 8 [facility] ASSAY OF LACTIC 53642 [facility] ACID 8 [facility] ASSAY OF LIPASE 61169 [facility] 8 [facility] RBC SED RATE 09555 [facility] AUTOMATED 8 [facility] URINALYSIS AUTO 98444 [facility] W/SCOPE 8 [facility] ROUTINE 63795 [facility] VENIPUNCTURE 8 [facility] COMPREHEN METABOLIC 62109 [facility] PANEL 8 [facility] FECES CULTURE 88008 [facility] AEROBIC BACT 8 [facility] STOOL CULTR AEROBIC 63428 [facility] BACT EA 8 [facility] URINE BACTERIA 29635 [facility] CULTURE 8 [facility] C DIFF AMPLIFIED 83047 [facility] PROBE 8 [facility] PROCALCITONIN (PCT) 52238 [facility] [address] [facility] CT ABD & PELV 96832 [facility] W/CONTRAST 8 [facility] THER/PROPH/[place] [address] [facility] INF INIT 8 [facility] TX/PRO/[place] [address] [facility] DRUG ADDON 8 [facility] HYDRATE IV INFUSION 81093 [facility] ADD-ON 8 [facility] TX/PROPH/DG ADDL 58723 [facility] SEQ IV INF 8 [facility] OVA AND PARASITES 63044 [facility] SMEARS 8 [facility] PROTHROMBIN TIME 94751 [facility] 8 [facility] THROMBOPLASTIN TIME 60582 [facility] PARTIAL 8 [facility] METABOLIC PANEL 60458 [facility] TOTAL CA 8 [facility] TX/PRO/DX INJ SAME 09433 [facility] DRUG FELTMAKER 8 [facility] MORPHINE SULFATE [id number] [employer] INJECTION 8 [facility] DIRECT ADMIT TO [id number] [facility] OBSERVATION 8 [facility] HOSPITAL G0378 [employer] OBSERVATION 8 [facility] SERVICES PER HOUR Medical [place]
--- OUTSIDE RECORDS SUMMARY | 2019-01-02 13:22 | XMS REPORT | Continuity of Care Document ---
:[address] [facility] Address [address] [place] [id number] Phone Unavailable Care Team Providers Name Role Phone TAMMIE DEVLIN MD Primary Care Physician Insurance Providers Guarantor Maura Shetty Address [address] [place] [address] Email [email or web address] Payer [facility] Policy Number [id number] Subscriber's Name Maura Shetty Relationship Self / Same As Patient Group Number [id number] Group Name [employer] Advance Directives Directive Response Recorded Date/Time Advance Directives No 03/21/14 10:10am Directive to Physicians/Living Will No 03/21/14 10:10am Health Care Proxy No 03/21/14 10:10am Organ Donor No 03/21/14 10:10am Medical Power of Parasitology Teacher No 03/21/14 10:10am Patient/Family Given Education Material R/T Y - PB 10/04/18 10/04/18 11: 59am Directives? Problems Medical Problem Onset Date Status Acute [...] Hydrobromide * 20 Mg Tab Fluticasone 2 [place] NASAL Daily for 30 Days 1 Inh [...] ORAL Three Times 10 Days 90 Tablet (Ultram *) 50 Daily As 8 Mg Tab Needed for Unknown Past Home Medications Medication Directions Ordered Status Azathioprine (Azathioprine *) 50 Once Daily Discontinued Mg Tab, 50 Mg Oral Budesonide (Uceris) 9 Mg Tab, 9 Once Daily Discontinued Mg Oral Cefdinir (Omnicef*) 300 Mg Cap, 1 Twice A Day for Infection 07/08/18 Discontinued Cap Oral Guaifenesin/Codeine (Cheratussin Every 6 Hours As Needed as 07/08/18 Discontinued Ac) 5 Ml Syrp, 5 Ml Oral needed for Cough And Congestion Hydrocodone-Acetaminophen 5/325MG Every 4-6H As Needed/ Pain as 03/24/14 Discontinued * ([place] 5/325MG *) 1 Tab Tab, needed for Pain 1-2 Tabs Oral Ibuprofen 800 Mg Tab, 800 Mg Oral Every 6 Hours As Needed 03/24/14 Discontinued Infliximab (Remicade Sdv 100 Mg As Directed Discontinued (10 Mg/Ml) *) 100 Mg Inj, 0 Intravenous Mesalamine (Asacol Hd) 800 Mg Daily for Unknown 04/26/18 Discontinued Tab, 2.4 Gm Oral Prednisone (Prednisone *) 20 Mg Daily for Uc 07/08/18 Discontinued Tab, 40 Mg Oral Prednisone (Prednisone *) 20 Mg Daily for Unknown 04/26/18 Discontinued Tab, 1 Tab Oral Prednisone (Prednisone *) 5 Mg Daily for Unknown 04/26/18 Discontinued [...] Vital Signs Vital Response Date/Time Blood Pressure 134/86 mm Hg 10/04/2018 12:06pm Pulse Pulse Rate (adult) 94 beats per minute (60 - 100) 10/04/2018 12:06pm Respiratory Rate 18 breaths per minute (10 - 24) 10/04/2018 12:06pm Temperature Source Temporal Artery Scan 10/04/2018 12:06pm Results Laboratory Results Test Name Result Units Flags Reference Collection Result Comments Date/Time Date/Time White Blood Count 7.9 K/ul 4.0-11.5 10/04/2018 10/04/2018 4:46pm 4:52pm Red Blood Count 4.10 M/ul 3.80-5.20 10/04/2018 10/04/2018 4:46pm 4:52pm Hemoglobin 10.6 g/dl 10.5-15.7 10/04/2018 10/04/2018 4:46pm 4:52pm Hematocrit 33.9 % L 34.0-50.0 10/04/2018 10/04/2018 4:46pm 4:52pm Mean Corpuscular 82.6 fl 78-98 10/04/2018 10/04/2018 Volume 4:46pm 4:52pm Mean Corpuscular 25.8 pg L 26.2-33.4 10/04/2018 10/04/2018 Hemoglobin 4:46pm 4:52pm Mean Corpuscular 31.3 g/dl L 31.5-36.2 10/04/2018 10/04/2018 Hemoglobin Concent 4:46pm 4:52pm Red Cell 13.6 % 11.5-15.5 10/04/2018 10/04/2018 Distribution Width 4:46pm 4:52pm Platelet Count 380 K/ul H 137-338 10/04/2018 10/04/2018 4:46pm 4:52pm Mean Platelet 5.6 fl L 8.4-11.8 10/04/2018 10/04/2018 Volume 4:46pm 4:52pm Neutrophils (%) 68.5 % 44.4-80.1 10/04/2018 10/04/2018 (Auto) 4:46pm 4:52pm Lymphocytes (%) 18.7 % 10.0-50.0 10/04/2018 10/04/2018 (Auto) 4:46pm 4:52pm Monocytes (%) 10.1 % 3.6-12.04 10/04/2018 10/04/2018 (Auto) 4:46pm 4:52pm Eosinophils (%) 2.0 % 0.0-5.41 10/04/2018 10/04/2018 (Auto) 4:46pm 4:52pm Basophils (%) 0.7 % 0.0-0.79 10/04/2018 10/04/2018 (Auto) 4:46pm 4:52pm Random Glucose 100 mg/dL 74-106 10/04/2018 10/04/2018 4:46pm 5:24pm Blood Urea Nitrogen 14 mg/dL 6-10/04/2018 10/04/2018 4:46pm 5:24pm Serum Osmolality 280 280-300 10/04/2018 10/04/2018 4:46pm 5:24pm Creatinine 0.6 mg/dL 0.50-0.90 10/04/2018 10/04/2018 4:46pm 5:24pm Glomerular > 60.00 10/04/2018 10/04/2018 GFR RESULTS ARE REPORTED IN mL/min/1.73m2. Filtration Rate 4:46pm 5:24pm Calc Normal GFR: >60mL/min Moderately decreased GFR: 30-59 mL/min Severely decreased GFR: 15-29 mL/min Kidney Failure (or Dialysis): <15 mL/min The calculated eGFR is not valid for patients younger than 18 years or older than 75 years. BUN/Creatinine 23.3 H 12-20 10/04/2018 10/04/2018 Ratio 4:46pm 5:24pm Sodium Level 140 mmol/L 135-145 10/04/2018 10/04/2018 4:46pm 5:24pm Potassium Level 3.8 mmol/L 3.5-5.2 10/04/2018 10/04/2018 4:46pm 5:24pm Chloride Level 104 mmol/L 98-108 10/04/2018 10/04/2018 4:46pm 5:24pm Carbon Dioxide 25 mmol/L 21-32 10/04/2018 10/04/2018 Level 4:46pm 5:24pm Anion Gap 14.8 mEq/L 12-10/04/2018 10/04/2018 4:46pm 5:24pm Calcium Level 9.2 mg/dL 8.6-10.0 10/04/2018 10/04/2018 4:46pm 5:24pm Total Protein 7.2 g/dL 6.6-8.7 10/04/2018 10/04/2018 4:46pm 5:24pm Albumin 4.2 g/dL 3.5-5.2 10/04/2018 10/04/2018 4:46pm 5:24pm Globulin 3.0 gm/dL 10/04/2018 10/04/2018 4:46pm 5:24pm Albumin/Globulin 1.4 >1.0 10/04/2018 10/04/2018 Ratio 4:46pm 5:24pm Total Bilirubin < 0.3 mg/dL 0.0-1.2 10/04/2018 10/04/2018 4:46pm 5:24pm Aspartate Amino 16 U/L 15-32 10/04/2018 10/04/2018 Transf (AST/SGOT) 4:46pm 5:24pm Alanine 14 U/L 0-33 10/04/2018 10/04/2018 Aminotransferase 4:46pm 5:24pm (ALT/SGPT) Total Alkaline 47 U/L 35-105 10/04/2018 10/04/2018 Phosphatase 4:46pm 5:24pm Procedures No procedure information available. Encounters Encounter Location Arrival/Admit Date Discharge/Depart Date Attending Provider Discharged 10/04/18 11:59am 10/14/18 11:59pm Yamil RAMIREZ MD Medical Ctr Discharged [place] 07/30/18 9:25am 08/16/18 11:59pm Yamil RAMIREZ MD Medical Ctr
--- OUTSIDE RECORDS SUMMARY | 2019-01-02 13:23 | XMS REPORT | Continuity of Care Document ---
:1980 Author Organization [facility] Address [address] [place] [address] Phone Unavailable Care Team Providers Name Role Phone TAMMIE DEVLIN MD Primary Care Physician Insurance Providers Guarantor Maura Shetty Address [address] [place] [address] Email [email or web address] [facility] [[email or web address]] Policy Number [id number] Subscriber's Name Maura Shetty Relationship Self / Same As Patient Group Number [id number] Group Name [employer] Advance Directives Directive Response Recorded Date/Time Advance Directives No 03/21/14 10:10am Directive to Physicians/Living Will No 03/21/14 10:10am Health Care Proxy No 03/21/14 10:10am Organ Donor No 03/21/14 10:10am Medical Power of Ward Helper No 03/21/14 10:10am Patient/Family Given Education Material R/T Y - 07/30/18.. 07/30/18 9: 24am Directives? Problems Medical Problem Onset Date Status [...] Hydrobromide * 20 Mg Tab Fluticasone 2 [place] NASAL Daily for 30 Days 1 Inh [...] As Needed/ Pain as 03/24/14 Discontinued * ([place] 5/325MG *) 1 Tab Tab, needed for [...] Vital Signs Vital Response Date/Time Blood Pressure 99/46 mm Hg 07/30/2018 11:16am Pulse Pulse Rate (adult) 64 beats per minute (60 - 100) 07/30/2018 11:16am Respiratory Rate 20 breaths per minute (10 - 24) 07/30/2018 11:16am Temperature Source Temporal Artery Scan 07/30/2018 11:16am Results Laboratory Results Test Name Result Units Flags Reference Collection Result Comments Date/Time Date/Time Erythrocyte 16 mm/hr 0.00-20 07/07/2018 07/07/2018 Sedimentation Rate 3:12am 3:24am Urine Color LIGHT 07/10/2018 07/10/2018 YELLOW 5:18pm 5:42pm Urine Appearance CLEAR CLEAR 07/10/2018 07/10/2018 5:18pm 5:42pm Urine Glucose NEGATIVE NEGATIVE 07/10/2018 07/10/2018 5:18pm 5:42pm Urine Bilirubin NEGATIVE NEGATIVE 07/10/2018 07/10/2018 5:18pm 5:42pm Urine Ketones NEGATIVE NEGATIVE 07/10/2018 07/10/2018 5:18pm 5:42pm Urine Specific 1.010 1.003-1.03 07/10/2018 07/10/2018 Millen 0 5:18pm 5:42pm Urine Blood NEGATIVE NEGATIVE [...] 07/14/2018 07/14/2018 Blood Glucose 8:19pm 10:05pm (Chem) Mycoplasma 471 U/mL H 0-99 07/10/2018 07/13/2018 [...] pneumoniae specific IgM antibody detected. Performed at: [facility] [id number] Chemotherapist: Hari Corona MD, Phone: [phone] Urine Legionella Negative Negative 07/10/2018 07/13/2018 Presumptive negative for L. pneumophila serogroup 1 antigen Antigen 5:18pm 1:15pm in urine, suggesting no recent or current infection. Legionnaires' disease cannot be ruled out since other serogroups and species may also cause disease. Performed at: [facility] [id number] Chemotherapist: Hari Corona MD, Phone: [phone] White Blood Count 13.6 K/ul H 4.0-11.5 07/30/2018 07/30/2018 10:00am 10:03am Red Blood Count 3.83 M/ul 3.80-5.20 07/30/2018 07/30/2018 10:00am 10:03am Hemoglobin 11.6 g/dl 10.5-15.7 07/30/2018 07/30/2018 10:00am 10:03am Hematocrit 35.4 % 34.0-50.0 07/30/2018 07/30/2018 10:00am 10:03am Mean Corpuscular 92.4 fl 78-98 07/30/2018 07/30/2018 Volume 10:00am 10:03am Mean Corpuscular 30.4 pg 26.2-33.4 07/30/2018 07/30/2018 Hemoglobin 10:00am 10:03am Mean Corpuscular 32.9 g/dl 31.5-36.2 07/30/2018 07/30/2018 Hemoglobin Concent 10:00am 10:03am Red Cell 13.9 % 11.5-15.5 07/30/2018 07/30/2018 Distribution Width 10:00am 10:03am Platelet Count 298 K/ul 137-338 07/30/2018 07/30/2018 10:00am 10:03am Mean Platelet 5.2 fl L 8.4-11.8 07/30/2018 07/30/2018 Volume 10:00am 10:03am Neutrophils (%) 82.4 % H 44.4-80.1 07/30/2018 07/30/2018 (Auto) 10:00am 10:03am Lymphocytes (%) 11.1 % 10.0-50.0 07/30/2018 07/30/2018 (Auto) 10:00am 10:03am Monocytes (%) 3.7 % 3.6-12.04 07/30/2018 07/30/2018 (Auto) 10:00am 10:03am Eosinophils (%) 2.5 % 0.0-5.41 07/30/2018 07/30/2018 (Auto) 10:00am 10:03am Basophils (%) 0.3 % 0.0-0.79 07/30/2018 07/30/2018 (Auto) 10:00am 10:03am Random Glucose 112 mg/dL H 74-106 07/30/2018 07/30/2018 10:00am 10:20am Blood Urea 20 mg/dL 6-07/30/2018 07/30/2018 Nitrogen 10:00am 10:20am Serum Osmolality 281 280-300 07/30/2018 07/30/2018 10:00am 10:20am Creatinine 0.8 mg/dL 0.50-0.90 07/30/2018 07/30/2018 10:00am 10:20am Glomerular > 60.00 07/30/2018 07/30/2018 GFR RESULTS ARE REPORTED IN mL/min/1.73m2. Filtration Rate 10:00am 10:20am Calc Normal GFR: >60mL/min Moderately decreased GFR: 30-59 mL/min Severely decreased GFR: 15-29 mL/min Kidney Failure (or Dialysis): <15 mL/min The calculated eGFR is not valid for patients younger than 18 years or older than 75 years. BUN/Creatinine 25.0 H 12-07/30/2018 07/30/2018 Ratio 10:00am 10:20am Sodium Level 139 mmol/L 135-145 07/30/2018 07/30/2018 10:00am 10:20am Potassium Level 3.5 mmol/L 3.5-5.2 07/30/2018 07/30/2018 10:00am 10:20am Chloride Level 99 mmol/L 98-108 07/30/2018 07/30/2018 10:00am 10:20am Carbon Dioxide 28 mmol/L 21-32 07/30/2018 07/30/2018 Level 10:00am 10:20am Anion Gap 15.5 mEq/L 12-07/30/2018 07/30/2018 10:00am 10:20am Calcium Level 8.7 mg/dL 8.6-10.0 07/30/2018 07/30/2018 10:00am 10:20am Total Protein 5.8 g/dL L 6.6-8.7 07/30/2018 07/30/2018 10:00am 10:20am Albumin 3.2 g/dL L 3.5-5.2 07/30/2018 07/30/2018 10:00am 10:20am Globulin 2.6 gm/dL 07/30/2018 07/30/2018 10:00am 10:20am Albumin/Globulin 1.2 >1.0 07/30/2018 07/30/2018 Ratio 10:00am 10:20am Total Bilirubin < 0.3 mg/dL 0.0-1.2 07/30/2018 07/30/2018 10:00am 10:20am Aspartate Amino 9 U/L L 15-32 07/30/2018 07/30/2018 Transf (AST/SGOT) 10:00am 10:20am Alanine 9 U/L 0-33 07/30/2018 07/30/2018 Aminotransferase 10:00am 10:20am (ALT/SGPT) Total Alkaline 43 U/L 35-105 07/30/2018 07/30/2018 Phosphatase 10:00am 10:20am Microbiology Results Procedure Source Organism/Result Collection Result [...] Completed 07/06/18 MORPHINE SULFATE INJECTION Completed 07/06/18 EMERGENCY DEPT VISIT Completed 07/10/18 THER/PROPH/DIAG IV INF INIT Completed 07/10/18 TX/PRO/DX INJ NEW DRUG ADDON Completed 07/10/18 HYDRATE IV INFUSION ADD-ON Completed 07/10/18 X-RAY EXAM CHEST 2 VIEWS Completed 07/10/18 HYDRATE IV INFUSION ADD-ON Completed 07/10/18 TX/PRO/DX INJ NEW DRUG ADDON Completed 07/10/18 COMPLETE CBC W/AUTO DIFF WBC Completed 07/10/18 BLOOD CULTURE FOR BACTERIA Completed 07/10/18 BLOOD CULTURE FOR BACTERIA Completed 07/10/18 MYCOPLASMA ANTIBODY Completed 07/10/18 MYCOPLASMA ANTIBODY Completed 07/10/18 STREP A ASSAY W/OPTIC Completed 07/10/18 URINALYSIS AUTO W/SCOPE Completed 07/10/18 ROUTINE VENIPUNCTURE Completed 07/10/18 AGENT NOS ASSAY W/OPTIC Completed 07/10/18 COMPREHEN METABOLIC PANEL Completed 07/10/18 INFLUENZA ASSAY W/OPTIC Completed 07/10/18 AG DETECT NOS IA MULT Completed 07/10/18 AIRWAY INHALATION TREATMENT Completed 07/10/18 TX/PRO/DX INJ SAME DRUG GAS GENERATOR OPERATOR Completed 07/10/18 HYDRATE IV INFUSION ADD-ON Completed 07/10/18 COMPLETE CBC W/AUTO DIFF WBC Completed 07/10/18 ROUTINE VENIPUNCTURE Completed 07/10/18 METABOLIC PANEL TOTAL CA Completed 07/10/18 THER/PROPH/DIAG INJ SC/IM Completed 07/10/18 TX/PRO/DX INJ SAME DRUG GAS GENERATOR OPERATOR Completed 07/10/18 HYDRATE IV INFUSION ADD-ON Completed 07/10/18 CT THORAX W/O DYE Completed 07/10/18 COMPLETE CBC W/AUTO DIFF WBC Completed 07/10/18 ROUTINE VENIPUNCTURE Completed 07/10/18 METABOLIC PANEL TOTAL CA Completed 07/10/18 X-RAY EXAM OF SINUSES Completed 07/10/18 THER/PROPH/DIAG INJ SC/IM Completed 07/10/18 TX/PRO/DX INJ SAME DRUG GAS GENERATOR OPERATOR Completed 07/10/18 HYDRATE IV INFUSION ADD-ON Completed 07/10/18 CT HEAD/BRAIN W/O DYE Completed 07/10/18 ASSAY GLUCOSE BLOOD QUANT Completed 07/10/18 ASSAY GLUCOSE BLOOD QUANT Completed 07/10/18 ROUTINE VENIPUNCTURE Completed 07/10/18 THER/PROPH/DIAG INJ SC/IM Completed 07/10/18 TX/PRO/DX INJ SAME DRUG GAS GENERATOR OPERATOR Completed 07/10/18 MORPHINE SULFATE INJECTION Completed 07/10/18 Completed 07/10/18 HOSPITAL OBSERVATION SERVICES PER HOUR Completed 07/10/18 INJECTION, ENOXAPARIN SODIUM, 10 MG Completed 07/10/18 MORPHINE SULFATE INJECTION Completed 07/10/18 Completed 07/10/18 INJECTION, ENOXAPARIN SODIUM, 10 MG Completed 07/10/18 Completed 07/10/18 INJECTION, ENOXAPARIN SODIUM, 10 MG Completed 07/10/18 METABOLIC PANEL TOTAL CA Completed 06/18/18 COMPLETE CBC AUTOMATED Completed 06/18/18 ROUTINE VENIPUNCTURE Completed 06/18/18 X-ray of chest, single view Completed 07/06/18 TAMMIE DEVLIN MD X-ray of chest, single view Completed 07/08/18 SHARON VIVEROS BEAUTY COUNSELOR-C X-ray of chest, two views Completed 07/10/[address] thorax wo contrast Completed 07/12/18 TAMMIE DEVLIN MD X-ray of paranasal sinuses, three or more Completed 07/12/18 TAMMIE DEVLIN MD views Computed tomography of head without Completed 07/13/18 TAMMIE DEVLIN MD contrast Encounters Encounter Location Arrival/Admit Date Discharge/Depart Date Attending Provider Discharged [place] 07/30/18 9:25am 08/16/18 11:59pm Yamil RAMIREZ MD Medical [facility]tr Discharged [place] 07/10/18 6:29pm 07/13/18 5:00pm QUITA, Inpatient (obs) Luly CHO MD Medical [facility]tr Discharged [place] 07/06/18 1:05pm 07/08/18 1:55pm QUITA Inpatient (obs) Luly CHO MD Medical [facility]tr Discharged [place] 06/26/18 9:18am 07/16/18 11:59pm Yamil RAMIREZ MD Medical [facility]tr Registered [place] 06/18/18 11:31am Jonelle DEVLIN MD Medical Ctr
--- OUTSIDE RECORDS SUMMARY | 2019-01-02 13:24 | XMS REPORT ---
:1980 [facility] Address [address] [place] [address] Care Team Providers Name Role Phone Unavailable [...]
--- OUTSIDE RECORDS SUMMARY | 2019-01-02 13:27 | XMS REPORT | Encounter Summary ---
:1980 Author Care Team Providers Name Role Phone Hiram Gómez MD Primary Care Provider Unavailable Reason for Visit Follow Up Visit Instructions 1. Acute upper respiratory infection rapid strep group A, throat upper respiratory infection (cold): care instructions 2. Left sided ulcerative colitis Discussion Note: None recorded. Plan of Care Reminders Provider Appointments None recorded. Lab Rapid Strep 09/06/2018 In-House Results Group a, Throat Referral None recorded. Procedures None recorded. Surgeries None recorded. Imaging None recorded. Medications Name Start Date azathioprine 50 mg tablet citalopram 40 mg tablet Take 1 tablet every day by oral route for 30 days. codeine 10 mg-guaifenesin 100 mg/5 mL oral liquid mesalamine 1.2 gram tablet,delayed release ondansetron HCl 8 mg tablet Take 1 tablet every 8 hours by oral route for 7 days. pantoprazole 40 mg tablet,delayed release Take 1 tablet twice a day by oral route for 14 days. Promethazine VC-Codeine 6.25 mg-5 mg-10 mg/5 mL oral syrup Medications Administered None recorded. Vitals Height Weight BMI Blood Pressure 65 in 245 lbs 5 oz 40.8 kg/m2 136/84 mm[Hg] Lab Results Date Name Specimen Result Interpretation Description Value Range Status Address 09/06/2018 Rapid Strep Strep negative In-House Group a, Result Results: For Throat Internal Use Only Allergies Code Code System [...] History Smoking Status Former Smoker Past Encounters 09/06/2018 Acute Upper Respiratory Infection; Left Sided Ulcerative Colitis Earle Roth MD: [address] [place] [address], [address], [place] [address], Ph. History of Present Illness Upper Respiratory Symptoms Reported By: Patient Upper Respiratory Symptoms: Location: head, throat. Quality: hurts to swallow. Severity: mild. Duration: symptoms lasting over 2 weeks. Onset/Timing: gradual. Context: no foreign travel, non-smoker, sick contact. Modifying Factors: OTC medication. Associated Symptoms: no sputum production, no shortness of breath, no wheezing, no change in number of pillows needed to sleep at night, no sweats, no significant weight loss, no morning cough, no vomiting, no diarrhea, no rash, no nausea Note: <p>Ulcerative Colitis: was admitted to [facility] for gi bleeding secndary to ulcerative colitis flare, restarted on remicade, now on Imuran as well. NO more rectal bleeding, feels better, has followup with Dr Lipscomb next week.</p><p>
</p><p>
</p& gt;

Review of Systems: ROS as noted in [...] no abdominal pain, no vomiting, normal appetite, no diarrhea, not vomiting blood Genitourinary: Genitourinary: no incontinence, no difficulty urinating, [...] PERRLA. EOM: EOMI. Sclerae: non-icteric ENMT: Ears: EAC ceruminous. Nose: nasal discharge--rhinorrhea, post nasal drip. Oropharynx: moist mucous membranes, erythema Neck: Neck: supple, FROM. Thyroid: no enlargement, [...]
--- OUTSIDE RECORDS SUMMARY | 2019-01-02 13:27 | XMS REPORT | Encounter Summary ---
:1980 Author Care Team Providers Name Role Phone Hiram Gómez MD Primary Care Provider Unavailable Reason for Visit sinus congestion; fever; Cough Instructions 1. Acute maxillary sinusitis Augmentin 875 mg-125 mg tablet Discussion Note RTC for any other concerns Patient educational handouts: No information available. Plan of Care Patient Instructions medication as directed; push fluids and ensure rest Reminders Provider Appointments None recorded. Lab None recorded. Referral None recorded. Procedures None recorded. Surgeries None recorded. Imaging None recorded. Medications Name Start Date Augmentin 875 mg-125 mg tablet Take 1 tablet every 12 hours by oral route with meals for 7 days. azathioprine 50 mg tablet citalopram 40 mg tablet Take 1 tablet every day by oral route for 30 days. codeine 10 mg-guaifenesin 100 mg/5 mL oral liquid mesalamine 1.2 gram tablet,delayed release pantoprazole 40 mg tablet,delayed release Take 1 tablet twice a day by oral route for 14 days. Medications Administered None recorded. Vitals Height Weight BMI Blood Pressure 65 in 255 lbs 4.8 oz 42.5 kg/m2 123/85 mm[Hg] Lab Results Date Name Specimen Result Interpretation Description Value Range Status Address 12/19/2018 CBC W/ Auto Normal White Blood 6.7 4.0-11.5 Final [place] Diff Count K/uL K/uL [facility] (Lab): [address] [place] [address] Normal Red Blood 4.21 3.80-5.20 Final [place] Count M/uL M/uL [facility] (Lab): 104 [facility] Normal Hemoglobin 10.6 10.5-15.7 Final [place] g/dL g/dL [facility] (Lab): [address] [place] [address] Low Hematocrit 33.4 34.0-50.0 Final [place] % % [facility] (Lab): [address] [place] [address] Normal Mean 79.3 78-98 fL Final [place] Corpuscular fL [facility] (Lab): [address] [place] [address] Low Mean 25.1 26.2-33.4 Final [place] Corpuscular pg pg [facility] Hemoglobin [facility] (Lab): [address] [place] [address] Normal Mean 31.7 31.5-36.2 Final [place] Corpuscular g/dL g/dL [facility] (Lab): [address] [place] [address] Normal Red Cell 15.1 11.5-15.5 Final [place] Distribution % % [facility] (Lab): [address] [place] [address] Normal Platelet 323 137-338 Final [place] Count K/uL K/uL [facility] (Lab): [address] [place] [address] Low Mean 5.5 8.4-11.8 Final [place] Platelet fL fL [facility] (Lab): [address] [place] [address] Normal Neutrophils 64.4 44.4-80.1 Corrected [place] % % % [facility] (Lab): [address] [place] [address] Normal Lymphocyte% 20.1 10.0-50.0 Final [place] % % [facility] (Lab): [address] [place] [address] Normal [place] % 7.5 % 3.6-12.0 Final [place] % [facility] (Lab): [address] [place] [address] High Eos % 7.0 % 0.0-5.4 % Final [place] [facility] (Lab): [address] [place] [address] Basophil % 1.0 % 0.0-0.79 Final [place] % [facility] (Lab): [address] [place] [address] 12/19/2018 Differential Normal Neutrophils Incomplete [place] Panel, Blood [facility] (Lab): [address] [place] [address] Normal Band Incomplete [place] [facility] (Lab): [address] [place] [address] Normal Lymphocyte Incomplete [place] [facility] (Lab): [address] [place] [address] Normal Atypical Incomplete [place] Lymph [facility] (Lab): [address] [place] [address] Normal Monocyte Incomplete [place] [facility] (Lab): [address] [place] [address] Normal Basophil Incomplete [place] [facility] (Lab): [address] [place] [address] Normal Platelet Incomplete [place] Estimate [facility] (Lab): [address] [place] [address] Normal Platelet Incomplete [place] Morphology [facility] (Lab): [address] [place] [address] 12/19/2018 CMP, Serum or Normal Glucose 99 74-106 Final [place] Plasma mg/dL mg/dL [facility] (Lab): [address] [place] [address] Normal Blood Urea 17 6-20 Final [place] Nitrogen mg/dL mg/dL [facility] (Lab): [address] [place] [address] Normal Osmolality 281 280-300 Final [place] Calculated, [facility] Serum [facility] (Lab): [address] [place] [address] Normal Creatinine 0.6 0.50-0.90 Final [place] mg/dL mg/dL [facility] (Lab): [address] [place] [address] Normal Glomerular >60.0 Final [place] Filtration 0 [facility] (Lab): [address] [place] [address] High BUN/creatini 28.3 12-20 Final [place] ne Ratio [facility] (Lab): [address] [place] [address] Normal Sodium Level 140 135-145 Final [place] mmol/ mmol/L [facility] (Lab): [address] [place] [address] Normal Potassium 4.0 3.5-5.2 Final [place] Level mmol/ mmol/L [facility] (Lab): [address] [place] [address] Normal Chloride 106 98-108 Final [place] Level mmol/ mmol/L [facility] (Lab): [address] [place] [address] Normal Co2 25 21-32 Final [place] mmol/ mmol/L [facility] (Lab): [address] [place] [address] Normal Anion Gap 13.0 12-20 Final [place] mEq/L mEq/L [facility] (Lab): [address] [place] [address] Normal Calcium 9.0 8.6-10.0 Final [place] Level mg/dL mg/dL [facility] (Lab): [address] [place] [address] Normal Total 6.8 6.6-8.7 Final [place] Protein g/dL g/dL [facility] (Lab): [address] [place] [address] Normal Albumin 4.0 3.5-5.2 Final [place] g/dL g/dL [facility] (Lab): [address] [place] [address] Normal Globulin 2.8 Final [place] gm/dL [facility] (Lab): [address] [place] [address] Normal A/g Ratio 1.4 >1.[address] [facility] (Lab): [address] [place] [address] Normal Bilirubin,to <0.3 0.0-1.2 Final [place] girish mg/dL mg/dL [facility] (Lab): [address] [place] [address] Normal AST/SGOT 16 15-32 U/L Final [place] U/L [facility] (Lab): [address] [place] [address] Normal ALT/SGPT 13 0-33 U/L Final [place] U/L [facility] (Lab): [address] [place] [address] Normal Alkaline 54 35-105 Final [place] Phosphatase, U/L U/L [facility] (Lab): [address] [place] [address] Allergies Code Code System Name Reaction Severity [...] available 01/18/2004 Caesarean Section Information not available Tubal Ligation Information not available Vaccine List Vaccine Type influenza, recombinant, quadrIvalent,injectable, preservative free 06/18/20180.5 mL Social History Smoking Status Former Smoker Past Encounters 01/01/2019 Acute Maxillary Sinusitis Mary Cortez [employer]: [address] [facility], [address], [place] [address], Ph. History of Present Illness Note: pt to clinic for cough, congestion, low grade fever, sore throat x 1 week; she reports symptoms have gotten worse; she reports currently taking prednisone for arthritis; she has been using otc zyrtec with no benefit; green phlegm Review of Systems General Adult ROS Reported By: Patient Constitutional: Constitutional: fever ENMT: Ears: no ear pain. Nose: nose/sinus problems. Mouth/Throat: sore throat Cardiovascular: Cardiovascular: no chest pain Respiratory: Respiratory: no wheezing, no shortness of breath, cough Gastrointestinal: Gastrointestinal: no abdominal pain, no vomiting, no diarrhea Endocrine: Endocrine: no fatigue Allergic/Immunologic: Allergy/Immunologic: no runny nose, sinus pressure Physical Exam Mike Brief Adult Exam - M/F Reported By: Patient Constitutional: General Appearance: healthy-appearing, well-nourished, well-developed. Level of Distress: NAD, acutely ill. Ambulation: ambulating normally Psychiatric: Mental Status: active and alert ENMT: Ears: EACs clear, TMs clear. Nose: nasal passages clear. Oropharynx: moist mucous membranes, no exudates, erythema Neck: Lymph Nodes: cervical LAD Lungs: Auscultation: breath sounds normal Cardiovascular: Heart Auscultation: RRR, normal S1, normal S2, no murmurs Musculoskeletal: Edema absent Notes: maxillary sinus tenderness
[2019-01-02 14:14] LABS: Urine Blood TRACE (NEG); Urine Glucose NEGATIVE (NEG); Urine Protein 1+ (NEG); Urine Specific Gravity >1.030 (1.005-1.030); Urine pH 5.5 (5.0-7.0)
[2019-01-02] MEDS ORDERED: NA CHLORIDE 0.9% 1,000 ML ONE (14:40)
[2019-01-02 14:48] LABS: Absolute Lymphocytes (CBC) 1.4 K/uL (0.7-4.9); Basophils % 0.7 % (0-1.3); Eosinophils % 3.6 % (0-4.4); Hematocrit 36.4 % (36.0-45.0); Lymphocytes % 16.3 % (15.3-44.8); Monocytes % 12.2 % (3.3-12.3); RBC Red Blood Cell Count 4.78 M/uL (3.86-4.86)
[2019-01-02 15:02] LABS: ALT/SGPT 22 U/L (12-78); AST/SGOT 16 U/L (15-37); Albumin 3.6 g/dL (3.4-5.0); Alkaline Phosphatase 64 U/L (45-117); BUN Blood Urea Nitrogen 17 mg/dL (7-18); Bicarbonate 25 mmol/L (21-32); Bilirubin Direct < 0.1 mg/dL (0-0.2); Bilirubin Total 0.2 mg/dL (0.2-1.0); Glucose Level 81 mg/dL (74-106); Lipase 115 U/L (73-393); Potassium 3.6 mmol/L (3.5-5.1); Protein, Total 7.5 g/dL (6.4-8.2); Sodium Level 142 mmol/L (136-145)
--- NOTE | 2019-01-02 15:30 | RAD REPORT ---
EXAM DESCRIPTION: CT - Abdomen Pelvis W Contrast - 01/02/2019 3:15 pm CLINICAL HISTORY: Abdominal pain, fever COMPARISON: July 2018 TECHNIQUE: Biphasic, helical CT imaging of the abdomen and pelvis was performed following 100 ml non -ionic IV contrast. Oral contrast was given. All CT scans are performed using dose optimization technique as appropriate and may include automated exposure control or mA/KV adjustment according to patient size. FINDINGS: No suspicious findings in the lung bases. The liver, spleen, and pancreas show no suspicious findings. Gallbladder and biliary tree are also wi thout suspicious finding. Symmetric renal function is seen with no hydronephrosis or suspicious renal mass. No pyelonephritis o r acute parenchymal process. No bladder abnormalities. No adrenal abnormalities. Uterus and ovaries s how no suspicious findings. No dilated bowel loops or bowel wall thickening. No colon abnormality. The pancolitis findings seen i n July are not evident on the current study. No free air, free fluid or inflammatory stranding. N o hernia, mass or bulky lymphadenopathy. No suspicious bony findings. IMPRESSION: Contrast enhanced CT abdomen and pelvis showing no significant or suspicious finding.
--- NOTE | 2019-01-02 16:44 | ER ---
Nurse's Notes [facility] Name: Yaneli Wright Age: 38 yrs Sex: Female : 1980 Arrival Date: 01/02/2019 Time: 13:17 Bed 30 Private MD: Diagnosis: Other ulcerative colitis Presentation: 01/02 13:33 Presenting complaint: Patient states: She has been having watery, bloody stools for the aj1 past 2 weeks, she has also had a cough and a fever, so she has been unable to get her regular Remicade infusion. She was seen by her PCP, Dr. Roth, today and advised to come to the ER for further evaluation. Patient reports that she sees Dr. Cid for GI. Patient reports nausea, vomiting, and having 6 to 10 watery stools per day. Transition of care: patient was not received from another setting of care. Onset of symptoms was December 2018. Risk Assessment: Do you want to hurt yourself or someone else? Patient reports no desire to harm self or others. Initial Sepsis Screen: Does the patient meet any 2 criteria? HR > 90 bpm. No. Patient's initial sepsis screen is negative. Does the patient have a suspected source of infection? Yes: Acute abdominal pain. Care prior to arrival: None. 13:33 Method Of Arrival: Ambulatory aj 13:33 Acuity: GRANT 3 aj1 Triage Assessment: 13:36 General: Appears in no apparent distress. uncomfortable, Behavior is calm, cooperative, aj1 appropriate for age. Pain: Complains of pain in right lower quadrant and left lower quadrant. Historical: - Allergies: 13:36 No Known Allergies; aj1 - Home Meds: 13:36 Prednisone Oral [Active]; citalopram oral [Active]; mesalamine oral oral [Active]; aj1 Imuran oral oral [Active]; - PMHx: 13:36 ulcerative colitis; aj1 - PSHx: 13:36 ; Tubal ligation; aj1 - Immunization history:: Adult Immunizations up to date. - Ebola Screening: : Patient denies travel to an Ebola-affected area in the 21 days before illness onset. Screenin:36 Abuse screen: Denies threats or abuse. Denies injuries from another. Nutritional aj1 screening: No deficits noted. Tuberculosis screening: No symptoms or risk factors identified. 17:56 Fall Risk None identified. aj1 Assessment: 13:36 General: Appears in no apparent distress. uncomfortable, Behavior is calm, cooperative, aj1 appropriate for age. Pain: Complains of pain in left lower quadrant and right lower quadrant Pain does not radiate. Pain currently is 4 out of 10 on a pain scale. Pain began 2 weeks ago. Neuro: Level of Consciousness is awake, alert, obeys commands, Oriented to person, place, time, situation. Cardiovascular: Patient's skin is warm and dry. Respiratory: Airway is patent Respiratory effort is even, unlabored, Respiratory pattern is regular, symmetrical. GI: Abdomen is non-distended, Bowel sounds present X 4 quads. Abd is soft X 4 quads Abdomen is tender to palpation in right lower quadrant and left lower quadrant Reports lower abdominal pain, diarrhea, bloody stool, nausea, vomiting. : No signs and/or symptoms were reported regarding the genitourinary system. EENT: No signs and/or symptoms were reported regarding the EENT system. Derm: No signs and/or symptoms reported regarding the dermatologic system. Skin is pink, warm \T\ dry. normal. Musculoskeletal: No signs and/or symptoms reported regarding the musculoskeletal system. Circulation, motion, and sensation intact. 14:28 Reassessment: Patient appears in no apparent distress at this time. No changes from aj1 previously documented assessment. Patient and/or family updated on plan of care and expected duration. Pain level reassessed. Patient is alert, oriented x 3, equal unlabored respirations, skin warm/dry/pink. 15:30 Reassessment: Patient appears in no apparent distress at this time. No changes from aj1 previously documented assessment. Patient and/or family updated on plan of care and expected duration. Pain level reassessed. Patient is alert, oriented x 3, equal unlabored respirations, skin warm/dry/pink. 16:30 Reassessment: Patient appears in no apparent distress at this time. No changes from aj1 previously documented assessment. Patient and/or family updated on plan of care and expected duration. Pain level reassessed. Patient is alert, oriented x 3, equal unlabored respirations, skin warm/dry/pink. 17:12 Reassessment: patient up for discharge after the iv antibiotic. mg2 17:53 Reassessment: Patient appears in no apparent distress at this time. No changes from aj1 previously documented assessment. Patient and/or family updated on plan of care and expected duration. Pain level reassessed. Patient is alert, oriented x 3, equal unlabored respirations, skin warm/dry/pink. Vital Signs: 13:36 BP 126 / 87; Pulse 124; Resp 20; Temp 98.0(O); Pulse Ox 99% on R/A; Pain 4/10; aj1 14:28 BP 96 / 56; Pulse 100; Resp 18; Pulse Ox 100% on R/A; aj1 15:20 BP 124 / 73; Pulse 88; Resp 18 S; Pulse Ox 100% on R/A; aj1 16:30 BP 106 / 77; Pulse 83; Resp 18; Pulse Ox 100% on R/A; aj1 17:54 BP 112 / 65; Pulse 85; Resp 18; Pulse Ox 99% on R/A; aj1 ED Course: 13:17 Patient arrived in ED. as 13:26 Mingo Larson NP is PHCP. pm1 13:26 Dash Rainey MD is Attending Physician. pm1 13:33 Bhargavi La, SOFÍA is Primary Nurse. aj1 13:35 Triage completed. aj1 13:36 Arm band placed on Patient placed in an exam room. aj1 13:36 Patient has correct armband on for positive identification. Bed in low position. Call aj1 light in reach. Side rails up X 1. 13:36 No provider procedures requiring assistance completed. aj1 15:16 CT Abd/Pelvis - IV Contrast Only In Process Unspecified. EDMS 17:56 IV discontinued, intact, bleeding controlled, No redness/swelling at site. Pressure aj1 dressing applied. Administered Medications: 14:34 Drug: NS 0.9% 1000 ml Route: IV; Rate: 1000 ml; Site: right forearm; aj1 17:44 Follow up: IV Status: Completed infusion; IV Intake: 1000ml aj1 17:11 Drug: Flagyl 500 mg Volume: 100 ml; Route: IVPB; Rate: 200 ml/hr; Infused Over: 30 mg2 mins; Site: right forearm; 17:44 Follow up: IV Status: Completed infusion; IV Intake: 100ml aj1 17:11 Drug: SOLU-Medrol 125 mg Route: IVP; Site: right forearm; mg2 17:44 Follow up: Response: No adverse reaction aj1 17:12 Drug: Cipro 500 mg Route: PO; mg2 17:44 Follow up: Response: No adverse reaction aj1 Intake: 17:44 IV: 1000ml; Total: 1000ml. aj1 17:44 IV: 100ml; Total: 1100ml. aj1 Outcome: 16:44 Discharge ordered by MD. pm1 17:56 Discharged to home ambulatory. aj1 17:56 Condition: good 17:56 Discharge instructions given to patient, Instructed on discharge instructions, follow up and referral plans. medication usage, Demonstrated understanding of instructions, follow-up care, medications, Prescriptions given X 2. 17:56 Patient left the ED. aj1 Signatures: Dispatcher [employer] EDBhargavi Pendleton, RN RN aj1 Karina Jorgensen Patrick, TOOL CRIB ATTENDANT TOOL CRIB ATTENDANT pm1 Kailash North RN RN mg2
--- NOTE | 2019-01-02 16:44 | EDPHYS ---
Physician Documentation [facility] Name: Yaneli rWight Age: 38 yrs Sex: Female : 1980 Arrival Date: 01/02/2019 Time: 13:17 Bed 30 Private MD: ED Physician Dash Rainey HPI: 01/02 13:58 This 38 yrs old Female presents to ER via Ambulatory with complaints of UC pm1 Flare up. 13:58 The patient presents with abdominal pain that is diffuse. Onset: The symptoms/episode pm1 began/occurred 2 week(s) ago. The symptoms do not radiate. Associated signs and symptoms: Pertinent positives: diarrhea, Pertinent negatives: nausea and vomiting, dysuria, fever. The symptoms are described as crampy. Modifying factors: The symptoms are alleviated by nothing, the symptoms are aggravated by nothing. Severity of pain: in the emergency department the pain is unchanged. The patient has experienced similar episodes in the past, multiple times. Patient with issues getting Remicade recently and attributes lack of medications as the cause for her flare up of ulcerative colitis. Patient with bloody mucoid diarrhea for the past two weeks. Has seen PCP and GI. Has prescription for prednisone from GI. Historical: - Allergies: 13:36 No Known Allergies; aj1 - Home Meds: 13:36 Prednisone Oral [Active]; citalopram oral [Active]; mesalamine oral oral [Active]; aj1 Imuran oral oral [Active]; - PMHx: 13:36 ulcerative colitis; aj1 - PSHx: 13:36 ; Tubal ligation; aj1 - Immunization history:: Adult Immunizations up to date. - Ebola Screening: : Patient denies travel to an Ebola-affected area in the 21 days before illness onset. ROS: 13:58 Constitutional: Negative for fever, chills, and weight loss, Eyes: Negative for injury, pm1 pain, redness, and discharge, ENT: Negative for injury, pain, and discharge, Neck: Negative for injury, pain, and swelling, Cardiovascular: Negative for chest pain, palpitations, and edema, Respiratory: Negative for shortness of breath, cough, wheezing, and pleuritic chest pain. 13:58 Back: Negative for injury and pain, : Negative for injury, bleeding, discharge, and swelling, MS/Extremity: Negative for injury and deformity, Skin: Negative for injury, rash, and discoloration, Neuro: Negative for headache, weakness, numbness, tingling, and seizure. 13:58 Abdomen/GI: Positive for abdominal pain, diarrhea, Negative for nausea and vomiting. Exam: 13:58 Constitutional: This is a well developed, well nourished patient who is awake, alert, pm1 and in no acute distress. Head/Face: Normocephalic, atraumatic. Eyes: Pupils equal round and reactive to light, extra-ocular motions intact. Lids and lashes normal. Conjunctiva and sclera are non-icteric and not injected. Cornea within normal limits. Periorbital areas with no swelling, redness, or edema. ENT: Nares patent. No nasal discharge, no septal abnormalities noted. Tympanic membranes are normal and external auditory canals are clear. Oropharynx with no redness, swelling, or masses, exudates, or evidence of obstruction, uvula midline. Mucous membranes moist. Neck: Trachea midline, no thyromegaly or masses palpated, and no cervical lymphadenopathy. Supple, full range of motion without nuchal rigidity, or vertebral point tenderness. No Meningismus. Chest/axilla: Normal chest wall appearance and motion. Nontender with no deformity. No lesions are appreciated. Cardiovascular: Regular rate and rhythm with a normal S1 and S2. No gallops, murmurs, or rubs. Normal PMI, no JVD. No pulse deficits. Respiratory: Lungs have equal breath sounds bilaterally, clear to auscultation and percussion. No rales, rhonchi or wheezes noted. No increased work of breathing, no retractions or nasal flaring. 13:58 Back: No spinal tenderness. No costovertebral tenderness. Full range of motion. Skin: Warm, dry with normal turgor. Normal color with no rashes, no lesions, and no evidence of cellulitis. MS/ Extremity: Pulses equal, no cyanosis. Neurovascular intact. Full, normal range of motion. 13:58 Abdomen/GI: Inspection: abdomen appears normal, Bowel sounds: normal, Palpation: abdomen is soft and non-tender, in all quadrants, mass, is not appreciated, rebound tenderness, is not appreciated. 13:58 Neuro: Orientation: is normal, Motor: is normal, moves all fours, Sensation: is normal, no obvious gross deficits. Vital Signs: 13:36 BP 126 / 87; Pulse 124; Resp 20; Temp 98.0(O); Pulse Ox 99% on R/A; Pain 4/10; aj1 14:28 BP 96 / 56; Pulse 100; Resp 18; Pulse Ox 100% on R/A; aj1 15:20 BP 124 / 73; Pulse 88; Resp 18 S; Pulse Ox 100% on R/A; aj1 16:30 BP 106 / 77; Pulse 83; Resp 18; Pulse Ox 100% on R/A; aj1 17:54 BP 112 / 65; Pulse 85; Resp 18; Pulse Ox 99% on R/A; aj1 MDM: 13:49 Patient medically screened. pm1 16:19 Data reviewed: vital signs. Data interpreted: Pulse oximetry: on room air is 100 %. pm1 Interpretation: normal. 16:35 Counseling: I had a detailed discussion with the patient and/or guardian regarding: the pm1 historical points, exam findings, and any diagnostic results supporting the discharge/admit diagnosis, lab results, radiology results, the need for outpatient follow up, a adult parole officer, to return to the emergency department if symptoms worsen or persist or if there are any questions or concerns that arise at home. 16:38 Physician consultation: Midlevel for Palak Chin was contacted at 16:32, regarding pm1 consult, patient's condition, She consulted with Dr. Cid and would like the patient to be given Solu-Medrol, antibiotics in the ER and discharged with antibiotics. No further steroids. Patient was prescribed prednisone 20 mg PO daily by Giuseppe. Requested follow up in the office next week. 01/02 13:26 Order name: Basic Metabolic Panel pm1 01/02 13:26 Order name: CBC with Diff pm1 01/02 13:26 Order name: Creatinine for Radiology; Complete Time: 15:50 pm1 01/02 13:26 Order name: Hepatic Function; Complete Time: 15:50 pm1 01/02 13:26 Order name: Lipase; Complete Time: 15:50 pm1 01/02 13:28 Order name: Basic Metabolic Panel; Complete Time: 15:50 EDMS 01/02 13:28 Order name: CBC with Automated Diff; Complete Time: 15:50 EDMS 01/02 13:50 Order name: CT Abd/Pelvis - IV Contrast Only; Complete Time: 15:50 pm1 01/02 13:56 Order name: Urine Dipstick--Ancillary (enter results); Complete Time: 15:50 ms 01/02 13:56 Order name: Urine --Ancillary (enter results); Complete Time: 15:50 ms 01/02 13:26 Order name: IV Saline Lock; Complete Time: 14:21 pm1 01/02 13:26 Order name: Labs collected and sent; Complete Time: 14:32 pm1 01/02 13:26 Order name: Urine Dipstick-Ancillary (obtain specimen); Complete Time: 14:21 pm1 01/02 13:26 Order name: Urine Test (obtain specimen); Complete Time: 14:21 pm1 Administered Medications: 14:34 Drug: NS 0.9% 1000 ml Route: IV; Rate: 1000 ml; Site: right forearm; aj1 17:44 Follow up: IV Status: Completed infusion; IV Intake: 1000ml aj1 17:11 Drug: Flagyl 500 mg Volume: 100 ml; Route: IVPB; Rate: 200 ml/hr; Infused Over: 30 mg2 mins; Site: right forearm; 17:44 Follow up: IV Status: Completed infusion; IV Intake: 100ml aj1 17:11 Drug: SOLU-Medrol 125 mg Route: IVP; Site: right forearm; mg2 17:44 Follow up: Response: No adverse reaction aj1 17:12 Drug: Cipro 500 mg Route: PO; mg2 17:44 Follow up: Response: No adverse reaction aj1 Disposition: 01/03 07:25 Co-signature as Attending Physician, Dash Rainey MD I agree with the assessment and kdr plan of care. Disposition: 01/02/19 16:44 Discharged to Home. Impression: Other ulcerative colitis. - Condition is Stable. - Discharge Instructions: Ulcerative Colitis, Adult. - Prescriptions for Flagyl 500 mg Oral Tablet - take 1 tablet by ORAL route every 8 hours for 10 days; 30 tablet. Cipro 500 mg Oral Tablet - take 1 tablet by ORAL route every 12 hours for 10 days; 20 tablet. Tylenol- Codeine #3 300-30 mg Oral Tablet - take 2 tablets by ORAL route every 6 hours As needed; 20 tablet. - Medication Reconciliation Form, Thank You Letter, Antibiotic Education, Prescription Opioid Use form. - Follow up: Emergency Department; When: As needed; Reason: Worsening of condition. Follow up: Private Physician; When: 2 - 3 days; Reason: Recheck today's complaints, Continuance of care, Re-evaluation by your physician. - Problem is new. - Symptoms have improved. Signatures: Dispatcher [employer] EDMS Bhargavi La RN RN aj1 Dash Rainey MD MD kdr Marinas, Patrick, AUDIO EXPERIENCE EXPERT AUDIO EXPERIENCE EXPERT pm1 Kailash North RN RN mg2 Corrections: (The following items were deleted from the chart) 01/02 17:56 16:44 01/02/2019 16:44 Discharged to Home. Impression: Other ulcerative colitis. aj1 Condition is Stable. Forms are Medication Reconciliation Form, Thank You Letter, Antibiotic Education, Prescription Opioid Use. Follow up: Emergency Department; When: As needed; Reason: Worsening of condition. Follow up: Private Physician; When: 2 - 3 days; Reason: Recheck today's complaints, Continuance of care, Re-evaluation by your physician. Problem is new. Symptoms have improved. pm1
[2019-01-02] MEDS ORDERED: CIPROFLOXACIN HCL 500 MG TAB ONE (17:14)
[2019-01-02] MEDS ORDERED: METHYLPREDNISOLONE 125 MG INJ ONE (17:14)
[2019-01-02] MEDS ORDERED: METRONIDAZOLE 500mg IVPB 500 MG/100 ML BAG IV ONE (17:14)
== END 2019-01-02 17:56 | disposition home or self-care (01) ==
LOC: ER 13:11
DX: K51.80 Other ulcerative colitis without complications (principal)
CPT/HCPCS: 36415; 74177; 80048; 80076; 81003; 81025; 83690; 85025; 96361; 96365; 96375; 99283; J2930; J7030; Q9967